=== PATIENT | female | born 1965 | race Caucasian/White ===

== ENCOUNTER → 2017-08-15 07:44 | Outpatient (CLI) | payer OTHER, SELFPAY ==
[2017-08-15 10:23] LABS: Hemoglobin A1c 8.8 % (4.2-6.3)
[2017-08-15 10:26] LABS: AST(SGOT) 19 U/L (15-37); Alanine Aminotransfer ALT/SGPT 33 U/L (13-56); Anion Gap 7 (5-15); BUN 7 mg/dL (7-18); BUN/Creat Ratio 10.2 RATIO (10-20); Calcium,Total 8.4 mg/dL (8.5-10.1); Chloride 103 mmol/L (98-107); Cholesterol 178 mg/dL (200); Creatinine, Serum 0.69 mg/dL (0.55-1.02); EST Glomerular Filtration Rate 94 mL/min (>60); Est Glom Filt Rate - Afr Amer 114 mL/min (>60); Glucose 176 mg/dL (74-106); High Density Lipoprotein 62 mg/dL; Potassium 3.9 mmol/L (3.5-5.1); Sodium Level 138 mmol/L (136-145); Triglycerides 96 mg/dL; Very Low Density Lipoprotein 19 mg/dL (5-40)
[2017-08-15 10:37] LABS: Microalbumin,Random Urine < 5.0 mg/L (NO RANGE EST.)
== END ==
PROVIDERS: Family Provider Family Medicine; PCP Family Medicine; Visit Provider Family Medicine
DX: E11.9 Type 2 diabetes mellitus without complications (principal); E78.5 Hyperlipidemia, unspecified
CPT/HCPCS: 36415; 80048; 80061; 82043; 82570; 83036; 84443; 84450; 84460

== ENCOUNTER → 2018-05-10 17:47 | Outpatient (CLI) | payer OTHER, SELFPAY ==
[2018-05-10 18:35] LABS: Anion Gap 9 (5-15); BUN 4 mg/dL (7-18); BUN/Creat Ratio 7.2 RATIO (10-20); Calcium,Total 8.9 mg/dL (8.5-10.1); Chloride 104 mmol/L (98-107); Creatinine, Serum 0.55 mg/dL (0.55-1.02); EST Glomerular Filtration Rate 122 mL/min (>60); Est Glom Filt Rate - Afr Amer 147 mL/min (>60); Glucose 114 mg/dL (74-106); Potassium 3.8 mmol/L (3.5-5.1); Sodium Level 141 mmol/L (136-145); Thyroid Stim Hormone (TSH) 2.26 uIU/mL (0.358-3.74)
--- OUTSIDE RECORDS SUMMARY | 2018-07-15 08:06 | XMS RPT_ITS ---
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 Mesha Mattson Active [facility] complications / Repository E11.9(ICD-10) 08/15/2017 Active Encounter for NA Active [facility] screening mammogram [facility] for malignant Repository neoplasm of breast / Z12.31(ICD-10) PROCEDURES PROCEDURES No Procedure Records FoundRESULTS RESULTS BASIC METABOLIC Collected: 05/10/2018 Status: F Source: [place] PROFILE (BMP) 5:13 PM [facility] REPOSITORY TYPE CODE TESTS RESULT OUT OF RANGE REFERENCE UNITS LAB L501.0100 74-106 mg/dL High GLU 114 Result Comment: Fasting Glucose result from 100 to 125 mg/dL suggests IMPAIRED HOMEOSTASIS per A.D.A. criteria. Please note revised GLUCOSE reference range effective 2017. LAB L501.1000 7-18 mg/dL Low BUN 4 LAB L501.1100 0.55-1.02 mg/dL Normal CREAT,SERUM 0.55 Result Comment: The validity of the calculated GFR AND GFRAA in patients over 70 years has not been determined. Clinical correlation is essential. LAB L501.1110 >60 mL/min Normal EST GFR 122 Result Comment: Non- GFR Calc LAB L501.1115 >60 mL/min Normal EST GFR - AA 147 Result Comment: GFR Calc LAB L501.1300 10-20 RATIO Low BUN/CRE 7.2 LAB L501.2200 8.5-10.1 mg/dL Normal CA 8.9 LAB L501.5300 136-145 mmol/L Normal NA 141 LAB L501.5600 3.5-5.1 mmol/L Normal K 3.8 LAB L501.5900 98-107 mmol/L Normal CL 104 LAB L501.6100 21.0-32.0 mmol/L Normal CO2 28.0 LAB L501.6200 5-15 Normal GAP 9 Performed By: #### L500.2500, L501.9520 #### [facility] [address] [place], [place], [address] THYROID STIM HORMONE Collected: 05/10/2018 Status: F Source: JEWETT (TSH) 5:13 PM [facility] REPOSITORY TYPE CODE TESTS RESULT OUT OF RANGE REFERENCE UNITS LAB L501.9520 0.358-3.74 uIU/mL Normal TSH 2.26 Performed By: #### L500.2500, L501.9520 #### [facility] [address] [place], [place], [address] PROGRESS Observed: 09/06/2017 Status: COMPLETED Source: HIBBS 3:04 PM [facility] REPOSITORY HNO ID: [id number] Author: Jania Hartman Psr Service: (none) Author Type: (none) Type: Progress Notes Filed: 09/06/2017 3:05 PM Note Text: pap logged, letter sent. Jania Hartman Psr SURGICAL PATHOLOGY Observed: 08/29/2017 Status: F Source: HIBBS 4:45 PM [facility] REPOSITORY Specimen originated from [facility] Specimen #: [id number] Submitting Physician: PATRICIA HODGES FINAL DIAGNOSIS Cervix, polyp, biopsy - Mainly mucus and inflammatory cells with very limited benign endocervical epithelium. GZ/liza/09/03/17 Asha Del Toro M.D. (Electronic Signature) SPECIMEN SUBMITTED A: CERVIX POLYP CLINICAL DATA None provided. GROSS DESCRIPTION A. Received in formalin are multiple brown, soft feathery segments of tissue admixed with gelatinous material aggregating to 1.2 x 0.9 x 0.6 cm. Totally submitted in one cassette. Gross examination performed at [facility], [address] [place] [address] 08/31/2017 12:16:55 AM Date of Report: 09/03/2017 Date of Procedure: 08/29/2017 Date of Receipt: 08/30/2017 Submitted by: PATRICIA HODGES Location: [facility] Diagnostic interpretation performed at [facility], [address] [place] [address]. CYTOLOGY Observed: 08/29/2017 Status: C Source: HIBBS 3:50 PM [facility] REPOSITORY ADDITIONAL PROCEDURES PRESENT Specimen originated from [facility] Specimen #: [id number] Submitting Physician: PATRICIA HODGES SPECIMEN SUBMITTED A: CERVICAL, SCREENING, FLUID FINAL DIAGNOSIS A. CERVICAL, SCREENING, FLUID Satisfactory for interpretation. Negative for intraepithelial lesion or malignancy. Acute inflammation. This specimen has been analyzed by the ThinPrep Imaging System, an automated imaging and review system, which assists the laboratory in evaluating cells on ThinPrep Pap tests. Following automated imaging, selected argueta from every slide are reviewed by a water main pipe layer. ALISON Crews(ASCP) (Electronic Signature) ADDITIONAL PROCEDURE(S) HUMAN PAPILLOMA VIRUS Date Ordered: 08/31/2017 Date Reported: 09/03/2017 Procedure Results and Interpretation Negative for HPV DNA high risk type 16 by PCR. Negative for HPV DNA high risk type 18 by PCR. Negative for HPV DNA high risk types: 31,33,35,39,45,51,52,56,58,59,66,68 by PCR. This test was developed and its performance characteristics determined by [facility]'s [facility] [place] ([facility] It has not been cleared or approved by the FDA. -[facility] is regulated under CLIA as qualified to perform high-complexity testing. This test is used for clinical purposes. It should not be regarded as investigational or for research. 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 The Pap Smear is a screening test for cervical cancer. False negative results occur with all screening tests, emphasizing the need for rescreening at recommended intervals, and clinical correlation. PROGRESS Observed: 08/29/2017 Status: COMPLETED Source: HIBBS 3:45 PM [facility] REPOSITORY HNO ID: [id number] Author: Patricia Hodges (Business Administration Professor) Service: (none) Author Type: Nurse Practitioner Type: Progress Notes Filed: 09/03/2017 9:58 AM Note Text: Barbra Henao is a 51 year old who presents for her annual gynecologic exam without complaints. Postmenopausal: no menses Feb 2018 HRT use: No. Last Pap: 2011 normal HPV: 2011 negative History of abnormal pap: No Last mammogram: 2017 normal History of abnormal mammogram: No Sexually active: Yes Hot flashes: Yes Night sweats: No Vaginal dryness: No Obstetric History T1 L1 SAB1 TAB0 Ectopic0 Multiple0 Live Births0 Comment: Pt also has 3 adopted children. PAST MEDICAL HISTORY Diagnosis Date - Other and unspecified hyperlipidemia - Type II or unspecified type diabetes mellitus with other specified manifestations, not stated as uncontrolled 05/28 - Unspecified essential hypertension - Varicose veins of other sites Left leg PAST SURGICAL HISTORY Procedure Laterality Date - BX OF BREAST; INCISIONAL 04/01/04 Bx of breast, incisional - DELIVERY ONLY 08/08/92;09/12/94 , low cervical - LAPAROSCOPIC CHOLEYCYSTECTOMY 11/05/12 hydrops FAMILY HISTORY Problem Relation Age of Onset - Diabetes Father - Hypertension Father - Breast Cancer Maternal Grandmother SOCIAL HISTORY Social History Substance Use Topics - Smoking status: Never Smoker - Smokeless tobacco: Never Used - Alcohol use No REVIEW OF SYSTEMS Abdomen: No abdominal pain, nausea, vomiting, diarrhea, or constipation. No bloating, early satiety, indigestion, or increased flatulence. Bladder: No dysuria, gross hematuria, urinary frequency, urinary urgency. Some occ incontinence Breast: No breast lumps, nipple d/c, overlying skin changes, redness or skin retraction Allergies and current medication updated:Yes EXAM: Ht 5' 1.811 (1.57m) Wt 194 lb (88.0kg) LMP 02/25/2017 BMI 35.70 kg/(m2). GENERAL: pleasant, female in no apparent distress HEENT: Normocephalic, atraumatic, mucus membranes moist and no lesions NECK: Supple, full range of motion, no adenopathy and thyroid normal DERMATOLOGY: Normal, without lesions, non-icteric and non-hirsute BREAST: soft, non-tender, symmetric, no dominant mass, normal nipple-areolar complex, no lymphadenopathy and no nipple discharge CHEST: Normal inspiratory effort ABDOMEN: soft, non-tender and no masses PELVIC: external genitalia normal, normal Bartholin's glands, urethra, [place]'s glands, no vulvar lesions, no cervical lesions, good vaginal support, physiologic discharge present, normal appearing perineal body and perianal region, cervical lesion -polyp BIMANUAL: uterus normal size, shape and consistency, no adnexal masses, non-tender and no cervical motion tenderness RECTOVAGINAL: deferred. NEURO: alert and oriented x3,exam grossly non-focal EXTREMITIES: normal ASSESSMENT/PLAN: 1) Health maintenance: Pap done with HPV. Mammogram up to date Nutrition, exercise and routine health maintenance exams reviewed. Calcium/Vitamin D supplementation information provided. 2) Follow up one year or sooner as needed Patricia Hodges) Pt ID verified with patient: Yes Procedure verified with patient: Yes Audible time-out documented: Yes. Time: 1610 Physician: Patricia Hodges APRN.CNP A polypectomy is indicated for a/an cervical polyp. The alternatives, risks, benefits, and potential complications have been reviewed with the patient. The patient states an understanding of RBAP and consents to proceed with the procedure. The patient wishes to proceed with the procedure. Cervical polyp grasp with ring forceps, with a twisting motion the polyp was removed for cervix. The procedure was completed without complication and the patient tolerated the procedure well. Satisfactory hemostasis was noted at the conclusion of the procedure with pressure. The specimen was properly labeled and routed to Pathology. Plan: await laboratory results Patricia Hodges APRN.CNP CNOV Observed: 08/29/2017 Status: COMPLETED Source: HIBBS 3:30 PM [facility] REPOSITORY Office Visit (WOOB) BARBRA HENAO ([id number]) 1965 F Date Time Provider Department 08/29/17 3:30 PM PATRICIA HODGES (ANNEMARIE) WOOB During your visit today, we recorded the following information about you: Blood pressure Weight Height Last Period 144/84 88 kg 1.57 m 02/25/17 Patricia Hogdes APRN.CNP 09/03/2017 9:58 AM Addendum Barbra Henao is a 51 year old who presents for her annual gynecologic exam without complaints. Postmenopausal: no menses Feb 2018 HRT use: No. Last Pap: 2011 normal HPV: 2011 negative History of abnormal pap: No Last mammogram: 2017 normal History of abnormal mammogram: No Sexually active: Yes Hot flashes: Yes Night sweats: No Vaginal dryness: No Obstetric History T1 L1 SAB1 TAB0 Ectopic0 Multiple0 Live Births0 Comment: Pt also has 3 adopted children. PAST MEDICAL HISTORY Diagnosis Date - Other and unspecified hyperlipidemia - Type II or unspecified type diabetes mellitus with other specified manifestations, not stated as uncontrolled 05/28 - Unspecified essential hypertension - Varicose veins of other sites Left leg PAST SURGICAL HISTORY Procedure Laterality Date - BX OF BREAST; INCISIONAL 04/01/04 Bx of breast, incisional - DELIVERY ONLY 08/08/92;09/12/94 , low cervical - LAPAROSCOPIC CHOLEYCYSTECTOMY 11/05/12 hydrops FAMILY HISTORY Problem Relation Age of Onset - Diabetes Father - Hypertension Father - Breast Cancer Maternal Grandmother SOCIAL HISTORY Social History Substance Use Topics - Smoking status: Never Smoker - Smokeless tobacco: Never Used - Alcohol use No REVIEW OF SYSTEMS Abdomen: No abdominal pain, nausea, vomiting, diarrhea, or constipation. No bloating, early satiety, indigestion, or increased flatulence. Bladder: No dysuria, gross hematuria, urinary frequency, urinary urgency. Some occ incontinence Breast: No breast lumps, nipple d/c, overlying skin changes, redness or skin retraction Allergies and current medication updated:Yes EXAM: Ht 5' 1.811 (1.57m) Wt 194 lb (88.0kg) LMP 02/25/2017 BMI 35.70 kg/(m2). GENERAL: pleasant, female in no apparent distress HEENT: Normocephalic, atraumatic, mucus membranes moist and no lesions NECK: Supple, full range of motion, no adenopathy and thyroid normal DERMATOLOGY: Normal, without lesions, non-icteric and non-hirsute BREAST: soft, non-tender, symmetric, no dominant mass, normal nipple-areolar complex, no lymphadenopathy and no nipple discharge CHEST: Normal inspiratory effort ABDOMEN: soft, non-tender and no masses PELVIC: external genitalia normal, normal Bartholin's glands, urethra, [place]'s glands, no vulvar lesions, no cervical lesions, good vaginal support, physiologic discharge present, normal appearing perineal body and perianal region, cervical lesion -polyp BIMANUAL: uterus normal size, shape and consistency, no adnexal masses, non-tender and no cervical motion tenderness RECTOVAGINAL: deferred. NEURO: alert and oriented x3,exam grossly non-focal EXTREMITIES: normal ASSESSMENT/PLAN: 1) Health maintenance: Pap done with HPV. Mammogram up to date Nutrition, exercise and routine health maintenance exams reviewed. Calcium/Vitamin D supplementation information provided. 2) Follow up one year or sooner as needed Patricia Hodges) Pt ID verified with patient: Yes Procedure verified with patient: Yes Audible time-out documented: Yes. Time: 1610 Physician: Patricia Hodges APRN.CNP A polypectomy is indicated for a/an cervical polyp. The alternatives, risks, benefits, and potential complications have been reviewed with the patient. The patient states an understanding of RBAP and consents to proceed with the procedure. The patient wishes to proceed with the procedure. Cervical polyp grasp with ring forceps, with a twisting motion the polyp was removed for cervix. The procedure was completed without complication and the patient tolerated the procedure well. Satisfactory hemostasis was noted at the conclusion of the procedure with pressure. The specimen was properly labeled and routed to Pathology. Plan: await laboratory results JESUS Franks 09/06/2017 3:05 PM Signed pap logged, letter sent. Jania Hartman Psr Referring Provider: SELF [200] Allergies As of Date: 08/29/2017 Noted Allergy Reaction PENICILLINS 03/30/2005 2 - Rash Date Reviewed: 08/29/2017 Reviewed by: Patricia Hodges - Fully Assessed Reason for Visit: Yearly Exam [187] Primary Visit Diagnosis:Encounter for gynecological examination (general) (routine) without abnormal findings [Z01.419] Other Visit Diagnoses:Encounter for screening for human papillomavirus (HPV) [Z11.51] Pap smear for cervical cancer screening [Z12.4] Encounter for screening mammogram for breast cancer [Z12.31] Cervical polyp [N84.1] Order(s):PAP FLUID CERVICAL SCREENING [[id number]] Order #: [id number]. #:[id number] ZAHRA SCREENING [[id number]] Order #: [id number] FUTURE SURGICAL PATHOLOGY [[id number]] Order #: [id number]. #:[id number] HPV W/GENOTYPE [SQHPVHRR] Order #: [id number]. #:[id number] Prescriptions as of 08/29/2017 Sig: METFORMIN 1,000 MG TABLET Take 1,000 mg by mouth twice * SITAGLIPTIN 50 MG TABLET Take 50 mg by mouth once frandy* CYANOCOBALAMIN (VIT B-12) 500* Take by mouth once daily. FISH OIL ORAL Take 1,200 mg by mouth once d* ASCORBIC ACID (VITAMIN C) 1,0* Take 1,000 mg by mouth once d* * VITAMIN B-6 100 MG TABLET Take one(1) tablet daily. Problem List As Of Date 08/29/2017 Noted Resolved DM manif NEC type II [E11.69] More... Essential hypertension [I10] Other and unspecified hyperlipidemia [E78.5] Cholecystitis [K81.9] INVALID FOR*05/20/2014 Acute hemorrhagic cholecystitis [K81.0] INVALID FOR*05/20/2014 Cholelithiasis [K80.20] INVALID FOR*05/20/2014 Disposition: Return in 1 year (on 08/29/2018) for Annual Exam. Follow-up and Disposition History Recorded Letter Text Patricia Hodges CNP [facility] [address] [place], [place] [address] Barbra Cadetugh [address] [facility] [address] 09/06/2017 [facility]: [id number] Dear Barbra, We are pleased to inform you that your recent Pap Test was within normal limits. Because Pap tests are so effective in the early detection of cervical cancer, you are encouraged to continue having the test at regular intervals. You will be due for a 1 year Gynecological Exam after this date 08/29/2018. If you have any questions regarding the above information, do not hesitate to call our office at between the hours of 8:00 a.m. and 5:00 p.m. Sincerely, Patricia Hodges CNP Encounter Status:Closed by PATRICIA HODGES on 08/29/17 HPV W/GENOTYPE Collected: 08/29/2017 Status: F Source: HIBBS 5:18 AM [facility] REPOSITORY TYPE CODE TESTS RESULT OUT OF REFERENCE UNITS RANGE LAB HPVT16 HPV HighRisk Negative for Type 16 HPV DNA high risk type 16 by PCR. LAB HPVT18 HPV HighRisk Negative for Type 18 HPV DNA high risk type 18 by PCR. LAB HPVHRO HPV HighRisk Negative for Other HPV DNA high risk types: 31,33,35,39,45 ,51,52,56,58,5 9,66,68 by PCR. Result Comment: This test was developed and its performance characteristics determined by [facility]'s [facility] Pathology and Laboratory Medicine [place] ([facility]). It has not been cleared or approved by the FDA. [facility] is regulated under CLIA as qualified to perform high-complexity testing. This test is used for clinical purposes. It should not be regarded as inv estigational or for research. Performed By: #### HPVHRR #### [facility] [address] [place], [place] [address] CNCO Observed: 08/15/2017 Status: COMPLETED Source: HIBBS 12:15 PM [facility] REPOSITORY HNO ID: [id number] Author: Mammography Coordinator Service: (none) Author Type: Physician Type: Letter Filed: 08/16/2017 11:31 PM Note Text: August 15, 2017 PID: [id number] Barbra Henao [address] [place] [address] Dear Ms. [place], We are pleased to inform you that the results of your recent breast imaging exam on 08/15/2017 are normal. Early detection of cancer is very important. We also understand recommendations regarding breast cancer screening are controversial. Please discuss with your primary care provider which strategy is best for you and whether a mammogram is right for you. Your imaging studies and report will be kept on file at [facility] as part of your permanent medical record and are available for your continuing care. Thank you for allowing us to help in meeting your health care needs. Sincerely, Dr. Hirsch Interpreting Radiologist [facility] (Normal over 40) HEMOGLOBIN A1C Collected: 08/15/2017 Status: F Source: JEWETT 8:08 AM [facility] REPOSITORY TYPE CODE TESTS RESULT OUT OF RANGE REFERENCE UNITS LAB L501.9985 4.2-6.3 % High HGB A1C 8.8 Performed By: #### L501.9985 #### [facility] [address] [place], [address] BASIC METABOLIC Collected: 08/15/2017 Status: F Source: JEWETT PROFILE (BMP) 8:08 AM [facility] REPOSITORY TYPE CODE TESTS RESULT OUT OF RANGE REFERENCE UNITS LAB L501.0100 74-106 mg/dL High GLU 176 Result Comment: Fasting Glucose result greater than or equal to 126 mg/dL suggests DIABETES MELLITUS per A.D.A. criteria. Please note revised GLUCOSE reference range effective 2017. LAB L501.1000 7-18 mg/dL Normal BUN 7 LAB L501.1100 0.55-1.02 mg/dL Normal CREAT,SERUM 0.69 Result Comment: The validity of the calculated GFR AND GFRAA in patients over 70 years has not been determined. Clinical correlation is essential. LAB L501.1110 >60 mL/min Normal EST GFR 94 Result Comment: Non- GFR Calc LAB L501.1115 >60 mL/min Normal EST GFR - AA 114 Result Comment: GFR Calc LAB L501.1300 10-20 RATIO Normal BUN/CRE 10.2 LAB L501.2200 8.5-10.1 mg/dL Low CA 8.4 LAB L501.5300 136-145 mmol/L NA Normal 138 LAB L501.5600 3.5-5.1 mmol/L K Normal 3.9 LAB L501.5900 98-107 mmol/L CL Normal 103 LAB L501.6100 21.0-32.0 mmol/L Normal CO2 28.0 LAB L501.6200 5-15 Normal GAP 7 Performed By: #### L500.2500, L500.4100, L501.4100, L501.4405, L501.9520 #### [facility] [address] [place], [place], [address] LIPID PROFILE Collected: 08/15/2017 Status: F Source: JEWETT 8:08 AM [facility] REPOSITORY TYPE CODE TESTS RESULT OUT OF RANGE REFERENCE UNITS LAB L501.4900 200 mg/dL Normal CHOL 178 Result Comment: <200 mg/dL Desirable 200-240 mg/dL Borderline >240 mg/dL High Risk LAB L501.5000 mg/dL Normal TRIG 96 Result Comment: The drugs N-Acetylcysteine and Metamizole may falsely depress this assay. Serum Triglycerides Reference Interval Normal <150 mg/dL Borderline high 150 - 199 mg/dL High 200 - 499 mg/dL Very High > or = 500 mg/dL LAB L501.6400 mg/dL Normal HDL 62 Result Comment: The drugs N-Acetylcysteine and Metamizole may falsely depress this assay. Reference Range HDL <40 mg/dL Low HDL Cholesterol HDL >or= 60 mg/dL High HDL Cholesterol LAB L501.6500 0-130 mg/dL Normal LDL 97 LAB L501.6600 5-40 mg/dL Normal VLDL 19 Performed By: #### L500.2500, L500.4100, L501.4100, L501.4405, L501.9520 #### [facility] [address] [place], [place], [id number] AST(SGOT) Collected: 08/15/2017 Status: F Source: JEWETT 8:08 AM [facility] REPOSITORY TYPE CODE TESTS RESULT OUT OF RANGE REFERENCE UNITS LAB L501.4100 15-37 U/L Normal AST 19 Performed By: #### L500.2500, L500.4100, L501.4100, L501.4405, L501.9520 #### [facility] [address] [place], [address] ALANINE AMINOTRANSFERAS Collected: 08/15/2017 Status: F Source: ORION (SGPT) 8:08 AM [facility] REPOSITORY TYPE CODE TESTS RESULT OUT OF RANGE REFERENCE UNITS LAB L501.4405 13-56 U/L Normal ALT 33 Performed By: #### L500.2500, L500.4100, L501.4100, L501.4405, L501.9520 #### [facility] [address], [address] THYROID STIM HORMONE Collected: 08/15/2017 Status: F Source: ORION (TSH) 8:08 AM [facility] REPOSITORY TYPE CODE TESTS RESULT OUT OF RANGE REFERENCE UNITS LAB L501.9520 0.358-3.74 uIU/mL Normal TSH 3.30 Performed By: #### L500.2500, L500.4100, L501.4100, L501.4405, L501.9520 #### [facility] [address], [address] MICROALB:CREAT Collected: 08/15/2017 Status: F Source: ORION RATIO,RANDOM UR 8:08 AM [facility] REPOSITORY TYPE CODE TESTS RESULT OUT OF RANGE REFERENCE UNITS LAB L501.1200 NO RANGE EST. mg/dL 33.70 Normal UR CREAT LAB L502.0500 NO RANGE EST. mg/L < 5.0 Normal MICROALBUMI N,UR LAB L502.0600 <30 mg/g CRE mg/g CRE Test Normal not performed MALB:CREAT Performed By: #### L502.0250 #### [facility] [address] [place], [address] ZAHRA SCREENING Observed: 08/15/2017 Status: F Source: HIBBS 7:29 AM [facility] REPOSITORY * * *Final Report* * * DATE OF EXAM: Aug 15 2017 7:29AM [facility] 0581 - [facility] SCREENING / PROCEDURE REASON: Encounter for screening mammogram for malignant neoplasm of breast * * * * Physician Interpretation * * * * RESULT: #[id number] - [facility] SCREENING BILATERAL DIGITAL SCREENING MAMMOGRAM WITH CAD: 08/15/2017 HISTORY: Encounter For Screening Mammogram For Malignant Neoplasm Of Breast /patient reports no breast symptoms /priors available for comparison. RESULT: TECHNIQUE: The study was acquired using full field digital technology and interpreted from soft copy. Current study was also evaluated with a Computer Aided Detection (CAD). Comparison is made to exams dated: 07/20/2016 mammogram, 05/27/2015 mammogram, 02/06/2013 mammogram, and 02/12/2014 mammogram - [facility]. There are scattered fibroglandular elements in both breasts. No significant masses, calcifications, or other findings are seen in either breast. There has been no significant interval change. IMPRESSION: NEGATIVE There is no mammographic evidence of malignancy.A 1 year screening mammogram is recommended. Chloe roper/branden:08/15/2017 12:15:31 Airport Attendant: Salena MORELOS)(Rich), [facility] letter sent: Normal over 40 Mammogram BI-RADS: 1 Negative Catalyst Unit Operator: rBanden Transcribe Date/Time: Aug 15 2017 7:14A Dictated by: CHLOE HIRSCH MD This examination was interpreted and the report reviewed and electronically signed by: CHLOE HIRSCH MD on Aug 15 2017 12:15PM EST [id number] PROGRESS Observed: 08/15/2017 Status: COMPLETED Source: [place] 7:13 AM CLINIC [facility] REPOSITORY [facility] ID: [id number] Author: Marline Munoz Service: (none) Author Type: (none) Type: Progress Notes Filed: 08/15/2017 7:31 AM Note Text: Radiology Service Progress Note PATIENT NAME: Barbra Henao DATE OF SERVICE: August 15, 2017 TIME: 7:13 AM PATIENT IDENTITY VERIFICATION COMPLETED USING TWO (2) METHODS: Patient confirmed name verbally and Date of . PATIENT GENDER DATA: Female. status: : No status: NO. PATIENT RELEVANT IMPLANT DATA REVIEWED: Not Applicable RADIOLOGY DEPARTMENT: [facility] scr mammogram PERIPHERAL IV DATA: Not applicable SIGNED BY: Marline Munoz August 15, 2017 7:13 AM ALLERGIES ALLERGIES DATE TYPE / CODE NAME / CODE REACTION SEVERITY SOURCE 03/30/2005 Drug PENICILLINS RASH [facility] Class/90625 [address] [place] 1003(SNOMED Repository CT) ENCOUNTERS ENCOUNTERS ADMIT/DISCHARGE ACCOUNT ADMITTING ENCOUNTER LOCATION SOURCE NUMBER CLASS 05/10/2018 [id number] [facility] ing:LABSPEC Repository 08/29/2017/02/28/20 [id number] Ambulatory [address] Repository 08/15/2017 [id number] [facility] ing:MTLAB Repository 08/15/2017/08/16/[id number] Repository PAYERS PAYERS ENCOUNTER GUARANTOR PAYER SUBSCRIBER SOURCE 05/10/2018 BARBRA Shoemaker Primary COURTNEY D Orion [id number] S Insurance:AETNAPolicy FIREBAUGHDOB: [facility] Number: [id number], [place] [id number] Repository [address]Juo: (330) Date:[phone] () [id number] [address]PE: 05/10/2018 Secondary NOT GIVENUNK [place] Insurance:SELF PAY [facility] Number: Effective Repository Date:2018-05-10 08/15/2017 Barbra Shoemaker Primary Courtney Sears [id number] S Insurance:AETNAPolicy FirebaughDOB: [facility] Number: [id number], [place] [id number] Repository [address]Muo: ([phone]) Date:[phone] () [id number] [address]TI: 08/15/2017 Secondary NOT GIVENUNK [place] Insurance:SELF PAY [facility] Number: Effective Repository Date:2017-08-15
== END ==
PROVIDERS: Family Provider Family Medicine; PCP Family Medicine; Referring Provider Family Medicine; Visit Provider Family Medicine
DX: E11.9 Type 2 diabetes mellitus without complications (principal)
CPT/HCPCS: 80048; 84443

== ENCOUNTER → 2018-10-08 | Outpatient (CLI) | payer OTHER, SELFPAY ==
--- NOTE | 2018-08-30 04:07 | HP_ITS ---
Intake Vital Signs 08/30/18 Height 5 ft 2 in 08/30/18 Blood Pressure 138/82 H 08/30/18 Blood Pressure Location Lt brachial 08/30/18 Blood Pressure Position Sitting 08/30/18 Respiratory Rate 18 Intake Visit Reasons: Umbilical Hernia Mail Examiner Required: No Is patient in pain?: No Allergies No Known Allergies Allergy (Unverified 08/30/18 13:53) Medications atorvastatin 10 mg tablet 10 mg PO DAILY 08/30/18 [History Confirmed 08/30/18] losartan 25 mg tablet 25 mg PO DAILY 08/30/18 [History Confirmed 08/30/18] metformin 1,000 mg tablet 1,000 mg PO DAILY 08/30/18 [History Confirmed 08/30/18] PFS Medical History Diabetes (Acute) High cholesterol (Acute) Umbilical hernia (Acute) HTN (hypertension) (Chronic) Surgical History S/P section (Acute) S/P laparoscopic cholecystectomy (Acute) S/P vein stripping (Acute) Family History Grandmother Breast cancer Social History Smoking Status: Never smoker alcohol intake: never HPI HPI HPI: JAE HENAO, is a 52 F who presents to the office today for HPI HPI Surgical H&P: Yes HPI: JAE HENAO, is a 52 F who presents to the office today for surgical consultation regarding a ventral incisional hernia. Patient is referred by her primary care physician Dr. Mesha Mattson and a written copy of my surgical consult recommendations will return to her. The patient states that 1992 she had an emergency performed via a vertical infraumbilical incision. She states that since that time she has always had a defect at the umbilical site but more recently it is become much more prominent and intermittently tender. She has not had any nausea or vomiting. No change of bowel habits. She is up-to-date on her colonoscopies. When she strains stands for prolonged period of time she has a dull ache. She has not required recent hospitalizations and she otherwise enjoys good health. She believes that she had a cardiac stress test approximately 5 years ago and it was not remarkable. ROS General General: Yes weight change; no appetite, fatigue, colon cancer, breast cancer or weakness HEENT HEENT: No difficulty swallowing, eye injury, eye surgery, swollen glands or hoarseness Endo Endocrine: Yes diabetes mellitus; no thyroid disease, thyroid cancer, Hair loss, heat intolerance or cold intolerance Skin Skin: No rash or changing moles Breast Breast: No left breast lump, right breast lump, nipple discharge, breast pain, abnormal mammogram, abnormal US or breast enlargement Musc Musculoskeletal: No back problems, arthritis, rheumatoid arthritis, gout or joint pain Cardio Cardiovascular: Yes high blood pressure; no murmur, pacemaker, heart disease, atrial fibrillation, heart attack, heart stent, palpitations, shortness of breat with exertion or chest pain Psych Psychiatric: No depression, anxiety or hearing voices Resp Respiratory: No shortness of breath, No sleep apnea, No cough, No COPD, No asthma, No emphysema, No wheezing Gastro Gastrointestinal: No abdominal pain, No nausea or vomiting, No diarrhea, No constipation, No blood in stool, No acid reflux, No hemorrhoids, No ulcers, No gallbladder problem, No black,tarry stools Alex Hematologic: Yes blood thinners, No blood disorders, No bleeding, No anemia, No blood clots Neuro Neurologic: No system reviewed and no additional complaints, except as docu, No as per HPI, No abnormal walking, No abnormal hearing, No abnormal movements, No abnormal speech, No behavioral changes, No burning sensations, No confusion, No seizure-like activity, No unsteadiness, No dizziness, No localized weakness, No frequent falls, No headache(s), No lack of coordination, No loss of vision, No memory loss, No numbness, No other visual disturbances, No radiating pain, No restless legs, No sensory deficit, No fainting, No tingling, No tremor(s), No weakness, No other Exam Const General: cooperative, healthy appearing, comfortable, no acute distress Nutritional Appearance: overweight Orientation: alert, awake, oriented x3 HENMT Head: normal to inspection Chest Chest palpation & inspection: normal inspection of the chest Breast Palpation: No nipple discharge Resp Effort & Inspection: normal respiratory effort Auscultation: clear to auscultation bilaterally Cardio Rate: regular rate Rhythm: regular rhythm Heart Sounds: no murmurs GI Palpation: soft, no hepatosplenomegaly Other: Significant sized bulging hernia within the subcutaneous tissues emanating from the umbilical site and extending superiorly into the left. There is a infraumbilical midline incision extending all the way up to the umbilicus. The hernia is partially reducible with a irregular fascial defect beneath the umbilicus. Mildly tender to deep palpation. It is difficult to decipher potential weakness of the remainder of the infraumbilical incision. Musc Cervical Spine: normal cervical lordosis Neuro General: alert, awake, oriented x3 Extrem General: no calf tenderness bilaterally Psych Affect: normal affect Assessment & Plan Plan Patient appears to have extension of an incisional hernia superior to the infraumbilical midline incision. This really has created quite a sizable subcutaneous hernia sac. It is difficult to assess the degree of them competency of the remainder of the infraumbilical midline incision. The extensive intra-abdominal adhesions also undetermined. Clearly the patient is symptomatic. I proposed for her a open possible conversion to laparoscopic repair and I have discussed technique benefit risk complications and alternatives. I anticipate a direct incision at the site. Pending the degree of the defect would then convert to laparoscopic approach if more extensive dissection and mesh coverage is required. She has had an opting to ask and have questions answered. We will schedule and proceed at her discretion. I very much appreciate the kind opportunity of assisting with her surgical care. CC: Dr. Mesha Calabrese M.D., F.A.C.S. Coding Level of Care Code Detailed, Low 08/30/18 1607 <Electronically signed by Dilip Calabrese MD> Date Dilip Calabrese MD
--- NOTE | 2018-09-11 16:00 | EKG12_ITS ---
Test Reason : PREOP Blood Pressure : / mmHG Vent. Rate : 075 BPM Atrial Rate : 075 BPM P-R Int : 158 ms QRS Dur : 074 ms QT Int : 410 ms P-R-T Axes : 049 -11 027 degrees QTc Int : 457 ms Normal sinus rhythm Low voltage QRS Borderline ECG When compared with ECG of 25-JUN-2013 09:04, No significant change was found Confirmed by YUMIKO PLATT, TEJA ([id number]), fan mail editor VADIM HIRSCH ([id number]) on 09/18/2018 12:06:16 PM Referred By: Dilip Calabrese Confirmed By:TEJA CALDERON MD
[2018-09-11 17:12] LABS: Anion Gap 5 (5-15); BUN 8 mg/dL (7-18); BUN/Creat Ratio 9.4 RATIO (10-20); Calcium,Total 8.7 mg/dL (8.5-10.1); Chloride 103 mmol/L (98-107); Creatinine, Serum 0.85 mg/dL (0.55-1.02); EST Glomerular Filtration Rate 74 mL/min (>60); Est Glom Filt Rate - Afr Amer 90 mL/min (>60); Glucose 299 mg/dL (74-106); Potassium 4.1 mmol/L (3.5-5.1); Sodium Level 137 mmol/L (136-145)
[2018-09-11 17:18] LABS: Hematocrit 42.2 % (37-47); Hemoglobin 13.7 g/dl (12.0-15.0); Mean Corp Hgb Conc 32.5 g/gl (32-36); Mean Corpuscular Hgb 30.4 pg (27.0-32.0); Mean Corpuscular Volume 93.8 fL (81-99); Mean Platelet Vol. 10.8 fl (6.2-12.0); Platelet Count 240 K/mm3 (150-450); RBC Distribution Width CV 12.6 % (11.6-14.6); RBC Distribution Width SD 42.5 fl (35.1-43.9); White Blood Count 8.3 K/mm3 (4.4-11.0)
[2018-09-11 17:20] LABS: Hemoglobin A1c 10.3 % (4.2-6.3)
[2018-09-11 17:25] LABS: Scan Indicated on CBC? Y/N NO
== END | disposition home or self-care (01) ==
LOC: SDC 11:51 → PAT 15:15
PROVIDERS: Referring Provider Surgery; Visit Provider Surgery
DX: Z01.818 Encounter for other preprocedural examination (principal)
CPT/HCPCS: 36415; 80048; 83036; 85027; 93005

== ENCOUNTER 2019-01-01 12:21 | Observation (INO) | payer OTHER, SELFPAY ==
--- NOTE | 2018-12-26 09:22 | EKG12_ITS ---
Test Reason : PREOP Blood Pressure : / mmHG Vent. Rate : 056 BPM Atrial Rate : 056 BPM P-R Int : 164 ms QRS Dur : 070 ms QT Int : 466 ms P-R-T Axes : 036 017 019 degrees QTc Int : 449 ms Sinus bradycardia Low voltage QRS Borderline ECG Confirmed by FRANCHESKA PLATT, DENG ([id number]), movie editor MICHI HSU ([id number]) on 12/30/2018 2:54:28 PM Referred By: Dilip Calabrese Confirmed By:FIFI PRITCHARD MD
[2018-12-26 10:22] LABS: Hematocrit 40.2 % (37-47); Hemoglobin 12.6 g/dL (12.0-15.0); Mean Corp Hgb Conc 31.3 g/dL (32-36); Mean Corpuscular Volume 95.7 fL (81-99); Mean Platelet Vol. 10.8 fl (6.2-12.0); Platelet Count 279 K/mm3 (150-450); RBC Distribution Width CV 13.5 % (11.6-14.6); RBC Distribution Width SD 47.9 fl (35.1-43.9); White Blood Count 6.5 K/mm3 (4.4-11.0)
[2018-12-26 10:35] LABS: Hemoglobin A1c 6.7 % (4.2-6.3)
[2018-12-26 10:55] LABS: Anion Gap 4 (5-15); BUN 8 mg/dL (7-18); BUN/Creat Ratio 11.6 RATIO (10-20); Calcium,Total 8.6 mg/dL (8.5-10.1); Chloride 105 mmol/L (98-107); Creatinine, Serum 0.69 mg/dL (0.55-1.02); EST Glomerular Filtration Rate 94 mL/min (>60); Est Glom Filt Rate - Afr Amer 113 mL/min (>60); Glucose 111 mg/dL (74-106); Potassium 3.9 mmol/L (3.5-5.1); Sodium Level 140 mmol/L (136-145)
--- NOTE | 2018-12-28 04:16 | HP_ITS ---
Intake Vital Signs 12/30/18 Height 5 ft 2 in 12/30/18 Weight: 190 lb 12/30/18 Body Mass Index (BMI) 34.7 12/30/18 Blood Pressure 136/82 H 12/30/18 Blood Pressure Location Rt brachial 12/30/18 Blood Pressure Position Sitting 12/30/18 Respiratory Rate 18 Intake Visit Reasons: open-lap ventral incisional hernia repair 9-11 Cnc Machine Setter Required: No Is patient in pain?: No Allergies Penicillins Allergy (Verified 12/30/18 15:11) Unknown Medications atorvastatin 10 mg tablet 10 mg PO QHS 08/30/18 [History Confirmed 12/30/18] losartan 25 mg tablet 25 mg PO QHS 08/30/18 [History Confirmed 12/30/18] metformin 1,000 mg tablet 1,000 mg PO QHS 08/30/18 [History Confirmed 12/30/18] Cyanocobalamin (Vitamin B-12) [Vitamin B-12] 1,000 mcg PO DAILY 09/11/18 [History Confirmed 12/30/18] Fish Oil/Dha/Epa [Fish Oil 1,200 mg Fish Oil] 1 ea PO DAILY 09/11/18 [History Confirmed 12/30/18] Pyridoxine HCl [Vitamin B-6] 100 mg PO DAILY 09/11/18 [History Confirmed 12/30/18] Glimepiride [Amaryl] 2 mg PO DAILY 12/25/18 [History Confirmed 12/30/18] PFSH Medical History Diabetes (Acute) High cholesterol (Acute) Umbilical hernia (Acute) HTN (hypertension) (Chronic) Surgical History S/P section (Acute) S/P laparoscopic cholecystectomy (Acute) S/P vein stripping (Acute) Family History Grandmother Breast cancer Social History (Updated 12/30/18 @ 16:16 by Denia Mclaughlin PA-C) Smoking Status: Never smoker alcohol intake: never HPI HPI HPI: JAE HENAO, is a 53 F who presents to the office today for HPI HPI Surgical H&P: Yes HPI: Patient is a 52 y/o female I am following for umbilical hernia. Patient presents for an update history and physical. Patient denies previous complications or side effects with anesthesia. Patient denies previous myocardial infarction, stroke or blood clots. Patient notes her abdominal discomfort is 1 or 2 out of 10. She notes she can easily reduce the hernia. She denies change in bowel habits. She denies nausea, vomiting Patient's previous history per Dr. Calabrese: JAE HENAO, is a 52 F who presents to the office today for surgical consultation regarding a ventral incisional hernia. Patient is referred by her primary care physician Dr. Mesha Mattson and a written copy of my surgical consult recommendations will return to her. The patient states that 1992 she had an emergency performed via a vertical infraumbilical incision. She states that since that time she has always had a defect at the umbilical site but more recently it is become much more prominent and intermittently tender. She has not had any nausea or vomiting. No change of bowel habits. She is up-to-date on her colonoscopies. When she strains stands for prolonged period of time she has a dull ache. She has not required recent hospitalizations and she otherwise enjoys good health. She believes that she had a cardiac stress test approximately 5 years ago and it was not remarkable. ROS General General: Yes weight change; no appetite, fatigue, colon cancer, breast cancer or weakness HEENT HEENT: No difficulty swallowing, eye injury, eye surgery, swollen glands or hoarseness Endo Endocrine: Yes diabetes mellitus; no thyroid disease, thyroid cancer, Hair loss, heat intolerance or cold intolerance Skin Skin: No rash or changing moles Breast Breast: No left breast lump, right breast lump, nipple discharge, breast pain, abnormal mammogram, abnormal US or breast enlargement Musc Musculoskeletal: No back problems, arthritis, rheumatoid arthritis, gout or joint pain Cardio Cardiovascular: Yes high blood pressure; no murmur, pacemaker, heart disease, atrial fibrillation, heart attack, heart stent, palpitations, shortness of breat with exertion or chest pain Psych Psychiatric: No depression, anxiety or hearing voices Resp Respiratory: No shortness of breath, No sleep apnea, No cough, No COPD, No asthma, No emphysema, No wheezing Gastro Gastrointestinal: No abdominal pain, No nausea or vomiting, No diarrhea, No constipation, No blood in stool, No acid reflux, No hemorrhoids, No ulcers, No gallbladder problem, No black,tarry stools Alex Hematologic: Yes blood thinners, No blood disorders, No bleeding, No anemia, No blood clots Neuro Neurologic: No weakness Exam Const General: cooperative, healthy appearing, comfortable, no acute distress HENMT Head: normal to inspection Eyes General: appearance normal, both eyes and all related structures Neck Neck: normal visual inspection Neck mass: No Chest Breast Palpation: No nipple discharge Resp Effort & Inspection: normal respiratory effort Auscultation: clear to auscultation bilaterally Cardio Rate: regular rate Rhythm: regular rhythm Heart Sounds: no murmurs GI Inspection: obesity Palpation: soft, hernia umbilical and ventral Auscultation: normal bowel sounds Skin General: no rashes or lesions noted Neuro General: no focal motor deficits, CN's II-XI intact bilaterally Extrem General: normal to inspection Psych Appearance: grossly normal Affect: normal affect Assessment & Plan Problems 1. Ventral incisional hernia without obstruction or gangrene K43.[address] Calabrese will plan to perform an open possible conversion to laparoscopic ventral incisional hernia repair with mesh. Procedure details, risks and benefits have been reviewed. Patient has had the opportunity to ask and have questions answered. Patient verbally understands and agrees with the plan. Coding Level of Care Code No Charge Diagnoses Ventral incisional hernia without obstruction or gangrene K43.2 Comment Update H&P 12/30/18 7986 <Electronically signed by Denia cuello PA-C> Date _ Denia Mclaughlin PA-C I have re-examined the patient. There are no clinical changes since date of exam.
[2018-12-30 15:11] VITALS: BMI 34.7
[2019-01-01] VITALS (28 sets, daily range): BP systolic 102–147; BP diastolic 58–85; PULSE 53–76; RESP 16; TEMP 36.3–36.9; O2SAT 90–100; BMI 34.6; BMI 34.9; BMI 35.0
--- NOTE | 2019-01-01 | HERN_PTH ---
PATIENT: JAE HENAO LOC: [facility] U#:[id number] AGE/SX: 53/F ROOM: [facility] RE01/01/[address]: Dr. Mulu Bennett MD : 1965 BED: 1 DIS: 01/02/2019 SPEC #: [id number] RECD: 01/01/19 12:20 STATUS: VLADISLAV BERNADINE #: [id number] TATA: 01/01/19 00:[address]: Dilip Calabrese DEPT: SURGICAL PATHOLOGY RECD BY: Anthony Oquendo ENTERED: 01/01/19 12:21 SP TYPE: Hernia OTHR DR: MD Mesha Lobo MD Tissues: HERNIA Procedures: Surgery Specimen Level II HEADER OPERATION: Open hernia, incisional ventral hernia with mesh PRE-OP DIAGNOSIS: Ventral incisional hernia without obstruction or gangrene TISSUE SUBMITTED: Hernia sac MICROSCOPIC DIAGNOSIS Hernia sac: Fragments of fibroadipose and fibroconnective tissue, consistent with hernia sac. YANE:amberly 01/02/19 MICROSCOPIC DESCRIPTION Slides are reviewed. GROSS DESCRIPTION Received in fixative is one container labeled with the patient's name and designated hernia sac. The specimen consists of two irregular fragments of fibroadipose tissue that in aggregate measure 4.5 x 3.5 x 1 cm. No mass lesion is identified. Ladies' Hat Trimmer sections are submitted in one cassette. / YANE:amberly 01/01/19 TC:5 CPT: 83642
--- NOTE | 2019-01-01 06:32 | DCINST_ITS ---
Discharge Diet: Light diet - advance as tolerated - if you have questions about your diet instructions, please talk to you doctor. Discharge Activity: May Not Drive - for 3-5 days or while taking narcotic pain medicine. May shower in (days): 1 Lifting Restrictions: 10 pounds Call your doctor if your incision/area has: Continuous Slow Oozing, Sudden Increased Bleeding, Increased Pain/ Swelling, Increased Redness, Foul Smelling Discharge Call your doctor if you observe: Fever of 101 or Higher Suture Line Care: Avoid Pulling/Pushing, Avoid Pinching/Bending Additional Dressing/Incision Instructions:: Change or remove dressing in 4 days. Leave steri-strips in place for 1 week. Allergies/Adverse Reactions: Allergies Penicillins Allergy (Verified 01/01/19 06:19) Unknown Medications to take at Discharge atorvastatin 10 mg tablet 10 mg PO QHS 08/30/18 losartan 25 mg tablet 25 mg PO QHS 08/30/18 metformin 1,000 mg tablet 1,000 mg PO QHS 08/30/18 Cyanocobalamin (Vitamin B-12) [Vitamin B-12] 1,000 mcg PO DAILY 09/11/18 Fish Oil/Dha/Epa [Fish Oil 1,200 mg Fish Oil] 1 ea PO DAILY 09/11/18 Pyridoxine HCl [Vitamin B-6] 100 mg PO DAILY 09/11/18 Glimepiride [Amaryl] 2 mg PO DAILY 12/25/18 Primary Care Physician: Mesha Mattson MD [Primary Care Provider] - Test Results: Test results from this visit will be discussed in further detail at your follow- up appointment, if applicable. Please Follow Up With: Dilip Calabrese MD - [phone] When: Call to make an appointment to be seen in about 10 days.
[2019-01-01] MEDS: Lactated Ringers 1,000 ML 100 ML IV (06:54)
[2019-01-01 07:15] LABS: Bedside Glucose 145 mg/dL (70-110)
[2019-01-01] MEDS: Bupivacaine 0.25% 30 ML Vial (08:54)
--- NOTE | 2019-01-01 08:56 | PCM.OPRPT ---
Problem List (1) Incisional hernia Status: Acute Qualifiers: Obstruction and gangrene presence: without obstruction or gangrene Qualified Code(s): K43.2 - Incisional hernia without obstruction or gangrene; K43.91 - Incisional hernia, without obstruction or gangrene Report of Operation Date of Procedure: 01/01/19 Pre-Operative Diagnosis: Periumbilical ventral incisional hernia Post-Operative Diagnosis: Same Surgery/Procedure Performed:: Ventral incisional herniorrhaphy with 8 cm ventralex mesh. Reference #[id number]. Lot number [id number]. Expiry date 10/18/2020 Description of Surgical Findings:: Timeout and informed consent was obtained. 53-year-old female was taken out from placement table underwent general endotracheal intubation anesthesia. The abdomen sterilely prepped draped chlorhexidine. Ioban draping was used as well. A infraumbilical transverse incision was created. Sharp dissection carried down through the substance tissue. Skin sites were pre-anesthetized with 0.5% Marcaine. The periumbilical area was sharply dissected free the umbilical skin carefully protected. The hernia sac was encountered there were adhesions of omentum but these could be rapidly lysed. The sac was then sharply excised. Subcutaneous tissue was raised to see the fascial edges. [place]'s were placed on the fascia elevated and there was copious adhesions of omentum to the anterior abdominal wall. These were transected using sharp dissection and electrocautery were indicated. Good circumferential dissection was achieved. The defect measured approximately 4 cm diameter. I placed a 8 cm ventralex. The tails were secured with interrupted 0 Nurolon. The fascia was closed transversely with interrupted 0 Nurolon and I captured a portion of the mesh and so doing to assure good approximation of the mesh to the anterior abdominal wall. The sutures were secured with excellent approximation. There did not appear to be any tension. The fascia was anesthetized with 0.5% Marcaine. Subcutaneous tissues were closed with interrupted 4-0 Monocryl. The skin edges approximate interrupted subcuticular 4-0 Monocryl. Steri-Strips cottonball Telfa OpSite dressings applied. Sponge and instrument and needle counts were reported the surgeon to be correct. Blood loss was minimal. Specimen hernia sac. Drains none. Blood loss minimal. The patient was taken to the recovery area in satisfactory condition without apparent complication. Dilip Calabrese M.D., F.A.C.S. Type of Anesthesia:: General Anesthesiologist: Hope Campos
--- NOTE | 2019-01-01 10:16 | RAD_ITS ---
STUDY: X-RAY CHEST REASON FOR EXAM: Female, 53 years old. Shortness of breath. Recent surgery. TECHNIQUE: Single AP portable view of the chest. COMPARISON: None. FINDINGS: The lungs are clear and expanded. There is no demonstrated pleural abnormality. There is moderate cardiac enlargement. Normal mediastinum and jesus. Normal visualized pulmonary arteries. Normal visualized aortic arch and descending thoracic aorta. There are diffuse degenerative changes of the visualized thoracic spine. Normal visualized ribs, clavicles, and shoulders. There is no demonstrated abnormality of the visualized soft tissue structures of the upper abdomen. RAD/Chest 1 View (Portable) IMPRESSION: Cardiomegaly. Electronically Signed: Julio Cesar Pack, at 11:01 EDT , Service support ,
[2019-01-01] MEDS: Ipratropium/Albuterol Sulfate 3 ML AMPUL.NEB INHALATION (10:43)
--- NOTE | 2019-01-01 11:09 | SUR.PHASEI ---
PT GIVEN IS AND VERBALLY GIVEN INSTRUCTIONS ON HOW TO DO. PT COMPLETED BEDSIDE
[2019-01-01 11:36] LABS: Base Excess 2 mmol/L (-2 to +2); Bicarbonate 27.7 mmol/L (22-26); Blood Gas Specimen Type ART; O2 Delivery Device Room Air; PO2 59 mmHG (75-100); SITE L Brachial; SO2 88 % (95-99); Time Given 1131; Total Carbon Dioxide 29 mmol/L; pH 7.33 (7.35-7.45)
--- NOTE | 2019-01-01 11:41 | SUR.PHASEI ---
ABG DONE BEDSIDE. COMPLETED PER RESP, ANESTHESIA REVIEWING RESULTS
--- NOTE | 2019-01-01 12:24 | HP.PCM_ITS ---
History of Present Illness Date of Admission: 01/01/19 Chief Complaint: hypoxia The patient is a 53 year old F with a past medical history as listed in which includes obstructive sleep apnea for which is not been compliant with his CPAP machine. Patient was admitted via PACU on 01/01/2019. Patient had surgery on 01/01/2019 for an abdominal ventral hernia by general surgery. After the surgery, she was noted to desaturate to the 70s whilst she was coming out of anesthesia. She therefore required up to 4 L of oxygen to maintain a saturation. Hospitalist service was therefore consulted to admit patient in account of postop hypoxia. Patient was seen in PACU. She was on 4 L of oxygen and had no complaints. She denied any fever, any cough or shortness of breath or any lightheadedness or dizziness. Pain was well controlled. Patient admitted to having sleep apnea and said she does not member the last time she used her CPAP machine because her had told her she did not need it. 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 Review of systems is otherwise negative. ABGs done in the PACU showed pH of 7.32 with PCO2 of 53 and PO2 of 59. She has been admitted to be managed for acute hypoxic and hypercapnic respiratory failure likely due to untreated sleep apnea. [] Past Medical History Medical History: Medical History (Last Reviewed 12/30/18 @ 15:10 by Yoselin Ocampo) Diabetes E11.9 High cholesterol E78.00 Umbilical hernia K42.9 HTN (hypertension) I10 Allergies Penicillins Allergy (Verified 01/01/19 06:19) Unknown Home Medications: Ambulatory Orders Medication Instructions Recorded atorvastatin 10 mg tablet 10 mg PO QHS 08/30/18 losartan 25 mg tablet 25 mg PO QHS 08/30/18 metformin 1,000 mg tablet 1,000 mg PO QHS 08/30/18 Cyanocobalamin (Vitamin B-12) 1,000 mcg PO DAILY 09/11/18 [Vitamin B-12] Fish Oil/Dha/Epa [Fish Oil 1,200 1 ea PO DAILY 09/11/18 mg Fish Oil] Pyridoxine HCl [Vitamin B6] 100 mg PO DAILY 09/11/18 Glimepiride [Amaryl] 2 mg PO DAILY 12/25/18 Hydrocodone Bitart/Apap 5-325 1 tab PO Q6H PRN PRN 2 Days #6 tab 01/01/19 [[place] 5MG-325MG] Surgical History: Surgical History (Last Reviewed 12/30/18 @ 15:10 by Yoselin Ocampo) S/P section Z98.891 S/P laparoscopic cholecystectomy Z90.49 S/P vein stripping Z98.890 Lives: Spouse/ Significant Other Smoking Status: Never smoker Tobacco Use: Non-smoker Alcohol: None Drugs: None - *Family History Maternal Family History: Family History (Last Reviewed 12/30/18 @ 15:10 by Yoselin Ocampo) Grandmother Breast cancer Review of Systems Constitutional: Denies: Chills, Fever, Malaise, Weakness, Weight Change HEENT: Denies: Head Aches, Sinus Congestion, Sinus Drainage Cardiovascular: Denies: Chest Pain, Palpitations, Paroxysmal Noc. Dyspnea, Syncope Respiratory: Denies: Cough, Shortness of Breath, Shortness of breath at rest, Sputum production Gastrointestinal: Denies: Abdominal Pain, Nausea, Vomiting Genitourinary: Denies: Dysuria Musculoskeletal: Denies: Joint Pain, Joint Tenderness Skin: Denies: Rash, Wounds Neurological: Denies: Numbness, Tingling, Focal weakness Psychiatric: Denies: Anxiety, Depression, Homicidal Ideations, Suicidal Ideations Hematologic/ Lymphatic: Denies: Easy Bruising, Easy Bleeding VTE Information - Inpt Only VTE Present on Admission: No VTE Pharm Prophylaxis ordered?: Yes Patient Problems: Active and Suspected Problems (Last Reviewed 12/30/18 @ 15:10 by Yoselin Ocampo) Incisional hernia (Acute) - Physical Exam General: Alert, Oriented x3, Cooperative, No apparent distress HEENT: Atraumatic, PERRLA, EOMI, Normocephalic Oral: Moist Mucosa Neck: Supple, No JVD, Negative Carotid Bruits Lungs: Clear to auscultation, Normal air movement, No rhonchi, No wheeze, No rales, - - on 4L of oxygen Cardiovascular: Regular rate, Regular Rhythm, Normal S1, Normal S2, No murmurs Abdomen: Bowel Sounds Present, Soft, Non-Distended, No Hepato-splenomegaly, Obese, - - abdominal binder in place Extremities: No clubbing, No cyanosis, No edema, Capillary Refill Less than 3 Seconds Skin: No rashes, No breakdown Musculoskeletal: No Tenderness to Palpation of Joints or Extremities Neurological: Cranial nerves II-XII grossly intact, Neuro grossly intact, Motor Exam 5/5 strength throughout Psych/Mental Status: Normal Affect, Appropriate, Alert and oriented to time, place, person, mood and affect Vital Signs Temp Pulse Resp BP Pulse Ox 97.3 F L 71 16 117/65 98 01/01/19 09:20 01/01/19 11:45 01/01/19 11:45 01/01/19 11:45 01/01/19 11:45 Oxygen Flow Rate (L/min) 4 Oxygen Delivery Method Nasal Cannula Weight: 189 lb 4 oz Body Mass Index (BMI) 34.6 Laboratory Tests Past 24 Hrs 01/01/19 11:32 Specimen Type ART Sample Site L Brachial pH 7.33 L Bicarbonate Actual 27.7 H POC Total CO2 29 Base Excess 2 O2 Saturation 88 L ABG pCO2 53.0 H ABG pO2 59 L O2 Delivery Device Room Air Blood Gas Notified Whom HOSP Blood Gas Notified Time 1131 POC Glucose 01/01/19 06:29 POC Glucose 145 H Diagnostic Data Chest X-Ray 01/01/19 10:16 IMPRESSION: Cardiomegaly. Electronically Signed: Julio Cesar Pack, at 11:01 EDT , Service support , Assessment/Plan All Active Problems (Last Reviewed 12/30/18 @ 15:10 by Yoselin Ocampo) Incisional hernia (Acute) 53 y/o female admitted post-op o/a of hypoxia 1. Acute hypoxic and hypercapnic respiratory insufficiency due to untreated sleep apnea * admit to pCU with telemetry * sats fell to 70% in OR * ABG showed pH of 7.3, with pCO2 of 53 nad pO2 of 59. * titrate oxygen to maintain sats >90% * admits to not being compliant with her sleep apnea machine * consult pulmonology * will get 2D echo o/a of CXR showing cardiomegaly * CPAP qhs. * 2. Abdominal ventral hernia s/p herniorrhaphy * today is POD 0 * management as per general surgery * 3. Hypertension: on losartan 4. Diabetes mellitus: on glimepiride nad metformin. ISS. Accuchecks ACHS 5. Hyperlipidemia:on atorvastatin 6. Known sleep apnea: noncompliant wiht nocturnal CPAP. Will need follow up with pulmonology on discharge. DVT prophylaxis: Lovenox Code Visit OBSV E&M: 44127 Initial observation care L3
--- NOTE | 2019-01-01 12:33 | SUR.PHASEI ---
1215 INTERNALIST HERE TO SEE PT
[2019-01-01 12:35] LABS: Bedside Glucose 236 mg/dL (70-110)
[2019-01-01] MEDS: Insulin Lispro 100 UNIT/ML INSULN.PEN 6 UNIT SC (12:41)
--- NOTE | 2019-01-01 13:56 | PCM.CONS.PUL ---
Reason for Consult Date of Consultation: 01/01/19 Reason for Consultation: Acute hypoxic respiratory insufficiency History of Present Illness: The patient is a 53-year-old female, with a history as outlined below, who presented to [facility] for an elective ventral hernia repair. The patient's operative course was uncomplicated with minimal blood loss noted. While the patient was successfully extubated following the procedure, she was noted to have become hypoxic while in recovery, requiring supplemental O2 to maintain appropriate saturations. The patient denies any history of pulmonary pathology. She has never been diagnosed with COPD or asthma. She is essentially a lifelong non-smoker. However, she did grow up in a smoking household. She was previously evaluated by Dr. Morse and subsequently diagnosed with obstructive sleep apnea following the completion of a polysomnogram 10+ years ago. She does recall having been told that her sleep apnea was mild in severity overall. She was subsequently started on nocturnal CPAP therapy, which she utilized for short period of time. She later discontinued its use, stating that she felt that it kept her awake throughout the course of the night due to an ill fitting mask and air leak. The patient has been without nocturnal Pap therapy now for approximately 10 years. She does not recall her previous CPAP settings. The patient denies a known history of cardiac disease. A postoperative plain film chest x-ray revealed no acute cardiopulmonary process. Arterial blood gas obtained on room air revealed a pH of 7.3 with a corresponding PCO2 of 53 and PO2 of 59. The patient was subsequently transferred from PACU to the progressive care unit for further management. On my evaluation of the patient, she was maintaining appropriate oxygen saturations in the high 90s on 2 L/min. She was in no form of respiratory distress. She did report being agreeable to further work-up of her sleep apnea. Past Medical History Medical History: Medical History (Last Reviewed 12/30/18 @ 15:10 by Yoselin Ocampo) Diabetes E11.9 High cholesterol E78.00 Umbilical hernia K42.9 HTN (hypertension) I10 Allergies Penicillins Allergy (Verified 01/01/19 06:19) Unknown Home Medications: Ambulatory Orders Medication Instructions Recorded atorvastatin 10 mg tablet 10 mg PO QHS 08/30/18 losartan 25 mg tablet 25 mg PO QHS 08/30/18 metformin 1,000 mg tablet 1,000 mg PO QHS 08/30/18 Cyanocobalamin (Vitamin B-12) 1,000 mcg PO DAILY 09/11/18 [Vitamin B-12] Fish Oil/Dha/Epa [Fish Oil 1,200 1 ea PO DAILY 09/11/18 mg Fish Oil] Pyridoxine HCl [Vitamin B6] 100 mg PO DAILY 09/11/18 Glimepiride [Amaryl] 2 mg PO DAILY 12/25/18 Hydrocodone Bitart/Apap 5-325 1 tab PO Q6H PRN PRN 2 Days #6 tab 01/01/19 [[place] 5MG-325MG] Surgical History: Surgical History (Last Reviewed 12/30/18 @ 15:10 by Yoselin Ocampo) S/P section Z98.891 S/P laparoscopic cholecystectomy Z90.49 S/P vein stripping Z98.890 Smoking Status: Never smoker Tobacco Use: Non-smoker - *Family History Maternal Family History: Family History (Last Reviewed 12/30/18 @ 15:10 by Yoselin Ocampo) Grandmother Breast cancer Review of Systems Constitutional: Denies: Chills, Fever Eyes: Denies: Blurred vision, Double vision HEENT: Denies: Head Aches, Sinus Congestion, Sinus Drainage Cardiovascular: Denies: Chest Pain, Palpitations Respiratory: Denies: Cough, Shortness of Breath Gastrointestinal: Reports: Abdominal Pain Genitourinary: Denies: Dysuria Musculoskeletal: Denies: Joint Pain, Joint Tenderness Skin: Denies: Rash, Wounds Neurological: Denies: Numbness, Tingling, Focal weakness Psychiatric: Denies: Anxiety, Depression, Homicidal Ideations, Suicidal Ideations Hematologic/ Lymphatic: Denies: Easy Bruising, Easy Bleeding Patient Problems: Active and Suspected Problems (Last Reviewed 12/30/18 @ 15:10 by Yoselin Ocampo) Incisional hernia (Acute) Objective: The patient's most recent lab work, culture data and imaging studies have all been personally reviewed. - Physical Exam General: Alert, Oriented x3, Cooperative, No apparent distress HEENT: Atraumatic, PERRLA, Normocephalic Oral: No Gingival or Mucosal Lesions/ Ulcerations Neck: Supple, No Nodes, Trachea Midline Lungs: - - Grossly clear to auscultation bilaterally. No conversational dyspnea or accessory muscle use. Cardiovascular: Regular rate, Regular Rhythm, Normal S1, Normal S2, No murmurs Abdomen: Soft, Tender Extremities: No clubbing, No cyanosis, No edema Skin: Incision Musculoskeletal: No Muscle Wasting Lymphatic: No Cervical, Supraclavicular, or Inguinal Adenopathy Neurological: Cranial nerves II-XII grossly intact, Neuro grossly intact Psych/Mental Status: Normal Affect, Appropriate Vital Signs Temp Pulse Resp BP Pulse Ox 98.5 F 69 16 147/75 H 97 01/01/19 13:51 01/01/19 13:51 01/01/19 13:51 01/01/19 13:51 01/01/19 13:51 Oxygen Flow Rate (L/min) 2 Oxygen Delivery Method Nasal Cannula Weight: 189 lb 4 oz Body Mass Index (BMI) 34.6 Finger Stick Blood Glucose 236 Intake and Output for Last 24 Hours 12/30/18 12/31/18 01/01/19 23:59 23:59 23:59 Intake Total 1000 / 1000 Balance 1000 / 1000 Laboratory Tests Past 24 Hrs 01/01/19 11:32 Specimen Type ART Sample Site L Brachial pH 7.33 L Bicarbonate Actual 27.7 H POC Total CO2 29 Base Excess 2 O2 Saturation 88 L ABG pCO2 53.0 H ABG pO2 59 L O2 Delivery Device Room Air Blood Gas Notified Whom HOSP Blood Gas Notified Time 1131 POC Glucose 01/01/19 01/01/19 12:17 06:29 POC Glucose 236 H 145 H Clinical Impression(s) from Imaging Studies Chest X-Ray 01/01/19 10:16 IMPRESSION: Cardiomegaly. Electronically Signed: Julio Cesar Pcak, at 11:01 EDT , Service support , Assessment/Plan All Active Problems (Last Reviewed 12/30/18 @ 15:10 by Yoselin Ocampo) Incisional hernia (Acute) RECOMMENDATIONS: 1. Wean supplemental oxygen to maintain saturations at or above 90%. 2. Encourage incentive spirometer use and mobilize patient as tolerated. 3. Orders will be placed for empiric nocturnal Pap therapy. 4. The patient can follow-up in the pulmonary medicine clinic within 2 weeks of discharge from the hospital, at which time, we can begin to work the patient up once again for her underlying sleep disordered breathing. IMPRESSIONS: 1. Acute hypoxemic respiratory insufficiency Likely precipitated by general anesthesia in the setting of a patient with known sleep apnea. The patient's oxygen saturations are currently in the high 90s on 2 L/min. I did recommend to the nursing staff that her oxygen be weaned to maintain saturations at or above 90%. The patient was encouraged to utilize her incentive spirometer accordingly. Mobilize patient as tolerated. 2. Known obstructive sleep apnea The patient reports having previously been diagnosed with obstructive sleep apnea by Dr. Morse greater than 10 years ago. She has been noncompliant with the use of nocturnal CPAP therapy for approximately 10 years. She has not been followed up by anyone with regards to her sleep disordered breathing. I would recommend that the patient follow-up in the pulmonary medicine clinic following discharge so that a re-titration polysomnogram can be completed and nocturnal Pap therapy restarted. The patient is in agreement. Orders will be placed for empiric CPAP therapy while she is admitted to the hospital. 3. Ventral hernia status post herniorrhaphy Continue routine postoperative care, including pain control and incentive spirometer utilization. 4. Obesity/hypertension/hyperlipidemia/diabetes mellitus Complicates care, management, recovery and prognosis. Continue home medications as indicated. This note was generated with [employer] dictation software. It may contain incorrect words, spelling, and punctuation that were not noted in checking the note before signing. Code Visit Inpatient E&M: 93010 Init Hosp L2
--- NOTE | 2019-01-01 14:13 | ECHOD_ITS ---
Reason For Study: Dyspnea/SOB Procedure This was a 2D Doppler, Color Flow transthoracic echocardiogram. Technically difficult study, patient could not tolerate probe for apical images, no subcostal images due to recent abdominal surgery. Exam performed portable in patient room. Left Ventricle Normal size and thickness. The estimated ejection fraction is 65 %. Stage 1 diastolic dysfunction. No regional wall motion abnormalities noted. Right Ventricle Normal size and thickness. Normal systolic function. Atria Normal left atrium. Normal right atrium. Normal atrial septum. Mitral Valve The mitral valve is structurally normal. No prolapse or stenosis seen. Tricuspid Valve Normal tricuspid valve. Unable to estimate RV systolic pressure due to insufficient tricuspid regurgitant envelope. Aortic Valve Normal aortic valve. Trisinus/trileaflet aortic valve. Pulmonic Valve The pulmonic valve is not well visualized. Great Vessels Normal aortic root. Normal arch. Normal inferior vena cava. Inferior vena cava collapse with sniff. Pericardium/Pleural No pericardial effusion. MMode/2D Measurements & Calculations LVIDd: 4.2 cm IVSd: 1.1 cm LA dimension: 3.8 cm LVIDs: 2.3 cm LVPWd: 0.91 cm FS: 45.1 % LAV(MOD-sp4): 47.4 ml LA A4 area: 17.9 cm2 RA A4 area: 11.4 cm2 Time Measurements MV dec time: 0.15 sec Doppler Measurements & Calculations MV E max rl: 85.7 cm/sec Lat Peak E' Rl: 9.9 cm/sec Med Peak E' Rl: 9.6 cm/sec MV A max rl: 102.7 cm/sec E/E' lat: 8.7 E/E' med: 9.0 MV E/A: 0.83 MV V2 max: 113.6 cm/sec MV P1/2t max rl: 91.5 cm/sec Ao V2 max: 145.4 cm/sec MV max P.2 mmHg MV P1/2t: 81.2 msec Ao max P.5 mmHg MV V2 mean: 58.2 cm/sec MV dec slope: 330.0 cm/sec2 Ao V2 mean: 90.5 cm/sec MV mean P.6 mmHg MVA(P1/2t): 2.7 cm2 Ao mean P.8 mmHg MV V2 VTI: 26.7 cm Ao V2 VTI: 29.8 cm LV V1 max: 108.0 cm/sec PA V2 max: 68.4 cm/sec LV V1 max P.7 mmHg LV V1 mean P.3 mmHg LV V1 mean: 71.1 cm/sec LV V1 VTI: 26.2 cm Interpretation Summary The estimated ejection fraction is 65 %. Stage 1 diastolic dysfunction. Unable to estimate RV systolic pressure due to insufficient tricuspid regurgitant envelope. There is no comparison study available. The study was technically difficult. Ordering Physician: Mulu Bennett Referring Physician: Dilip Calabrese Performed By: Nestor Watkins RCS
[2019-01-01] MEDS: Acetaminophen 325 MG Tablet 650 MG PO ×2 (16:52→22:43)
[2019-01-01 17:06] LABS: Bedside Glucose 215 mg/dL (70-110)
--- NOTE | 2019-01-01 18:40 | PCM.PN.SRG ---
Patient Problems: Active and Suspected Problems (Last Reviewed 12/30/18 @ 15:10 by Yoselin Ocampo) Incisional hernia (Acute) Subjective: Postop day0 I was notified by Dr. Abe Alfred with the patient is in the recovery room that she had CO2 retention and mild hypoxia. Recommendation was for admission. I very much appreciate the assistance of Drs. Bennett and Christopher - Physical Exam Lungs: Clear to auscultation, Normal air movement Abdomen: Bowel Sounds Present, Soft, Non Tender Vital Signs Temp Pulse Resp BP Pulse Ox 98.5 F 71 16 147/75 H 93 01/01/19 14:15 01/01/19 15:19 01/01/19 14:15 01/01/19 14:15 01/01/19 17:08 Oxygen Flow Rate (L/min) 2 Oxygen Delivery Method Room Air Weight: 190 lb Body Mass Index (BMI) 34.9 Finger Stick Blood Glucose 236 Intake and Output for Last 24 Hours 12/30/18 12/31/18 01/01/19 23:59 23:59 23:59 Intake Total 1106 / 1106 Balance 1106 / 1106 Laboratory Tests Past 24 Hrs 01/01/19 11:32 Specimen Type ART Sample Site L Brachial pH 7.33 L Bicarbonate Actual 27.7 H POC Total CO2 29 Base Excess 2 O2 Saturation 88 L ABG pCO2 53.0 H ABG pO2 59 L O2 Delivery Device Room Air Blood Gas Notified Whom [facility] Blood Gas Notified Time 1131 POC Glucose 01/01/19 01/01/19 01/01/19 17:02 12:17 06:29 POC Glucose 215 H 236 H 145 H Medical Necessity - Tobacco Use Smoking Status: Never smoker Tobacco Use: Non-smoker Assessment/Plan All Active Problems (Last Reviewed 12/30/18 @ 15:10 by Yoselin Ocampo) Incisional hernia (Acute) The patient is clinically very conversant. She appears extraordinarily comfortable only taking acetaminophen. She is up and ambulating and working aggressively with her incentive spirometer. She states that her O2 saturation is been approximately 93. She has an interest in going home. From a postoperative surgical standpoint she appears to be much improved over her reported stay in the PACU. I will contact however my understanding is that Dr. White would like the patient to utilize BiPAP tonight. The patient is aware that current recommendations are that she stay overnight. I very much appreciate the kind assistance of both medicine and pulmonary. I will continue to provide surgical support. Dilip Calabrese M.D., F.A.C.S.
[2019-01-01] MEDS: Losartan Potassium 25 MG Tablet PO (21:46)
[2019-01-01] MEDS: Insulin Lispro 100 UNIT/ML INSULN.PEN SC (21:46)
[2019-01-01] MEDS: Atorvastatin Calcium 10 MG Tablet PO (21:46)
[2019-01-01 22:01] LABS: Bedside Glucose 208 mg/dL (70-110)
[2019-01-02] VITALS (9 sets, daily range): BP systolic 120–146; BP diastolic 63–69; PULSE 55–68; RESP 16–18; TEMP 36.4–36.6; O2SAT 94–100
--- NOTE | 2019-01-02 05:21 | CPS ---
Tried 8 cm match-[id number]-[id number]-[employer] band for cpap, pt said it was too strong so in order for her to be compliant the pressure was decreased to 5 RN aware
--- NOTE | 2019-01-02 06:12 | PN.SURG_ITS ---
Patient Problems: Active and Suspected Problems (Last Reviewed 12/30/18 @ 15:10 by Yoselin Ocampo) Incisional hernia (Acute) Subjective: Pt denies abdominal pain or issues She did not sleep with Bipap - Physical Exam Abdomen: Bowel Sounds Present, Soft, Non Tender Vital Signs Temp Pulse Resp BP Pulse Ox 97.5 F L 64 16 146/69 H 94 01/02/19 06:04 01/02/19 06:04 01/02/19 06:04 01/02/19 06:04 01/02/19 06:04 Oxygen Flow Rate (L/min) 2 Oxygen Delivery Method Room Air Weight: 190 lb Body Mass Index (BMI) 34.9 Finger Stick Blood Glucose 236 Intake and Output for Last 24 Hours 12/31/18 01/01/19 01/02/19 23:59 23:59 23:59 Intake Total 1106 / 3506 2800 / 2800 Output Total 1800 / 1800 Balance 1106 / 3506 1000 / 1000 Laboratory Tests Past 24 Hrs 01/01/19 01/02/19 01/02/19 11:32 06:00 06:00 WBC Pending RBC Pending Hgb Pending Hct Pending MCV Pending MCH Pending MCHC Pending RDW Std Deviation Pending RDW Coeff of Radha Pending Plt Count Pending Neut % (Auto) Pending Absolute Neuts (auto) Pending Specimen Type ART Sample Site L Brachial pH 7.33 L Bicarbonate Actual 27.7 H POC Total CO2 29 Base Excess 2 O2 Saturation 88 L ABG pCO2 53.0 H ABG pO2 59 L O2 Delivery Device Room Air Blood Gas Notified Whom [facility] Blood Gas Notified Time 1131 Sodium Pending Potassium Pending Chloride Pending Carbon Dioxide Pending Anion Gap Pending BUN Pending Creatinine Pending Est GFR (MDRD) Af Amer Pending Est GFR (MDRD) Non-Af Pending BUN/Creatinine Ratio Pending Glucose Pending Calcium Pending POC Glucose 01/01/19 01/01/19 01/01/19 21:37 17:02 12:17 POC Glucose 208 H 215 H 236 H 01/01/19 06:29 POC Glucose 145 H Medical Necessity - Tobacco Use Smoking Status: Never smoker Tobacco Use: Non-smoker Assessment/Plan All Active Problems (Last Reviewed 12/30/18 @ 15:10 by Yoselin Ocampo) Incisional hernia (Acute) Appreciate ongoing medical care Outpt surgical followup is scheduled Will sign off
[2019-01-02 06:37] LABS: Anion Gap 6 (5-15); BUN 10 mg/dL (7-18); BUN/Creat Ratio 14.3 RATIO (10-20); Calcium,Total 8.9 mg/dL (8.5-10.1); Chloride 107 mmol/L (98-107); EST Glomerular Filtration Rate 93 mL/min (>60); Est Glom Filt Rate - Afr Amer 112 mL/min (>60); Estimated Creatinine Clearance 68.52 ml/min; Glucose 110 mg/dL (74-106); Potassium 4.2 mmol/L (3.5-5.1); Sodium Level 142 mmol/L (136-145)
[2019-01-02] MEDS: Acetaminophen 325 MG Tablet 650 MG PO (06:45)
[2019-01-02 06:50] LABS: Absolute Lymphocyte Count 2.02 X10^3/uL (0.83-4.51); Absolute Neutrophil Count 10.3 X10^3/uL (2.0-7.7); Basophil# 0.02 X10^3/uL; Basophil% 0.1 % (0-1); Eosinophil# 0.06 X10^3/uL; Eosinophils% 0.4 % (0-5); Hemoglobin 12.3 g/dL (12.0-15.0); Lymphocyte # 2.02 X10^3/ul (4.0); Lymphocyte % 15.1 % (19-41); Mean Corp Hgb Conc 32.4 g/dL (32-36); Mean Corpuscular Hgb 30.8 pg (27.0-32.0); Mean Platelet Vol. 10.5 fl (6.2-12.0); Monocyte# 0.94 X10^3/uL; NRBC Flagged by Analyzer 0 % (0-5); Neutrophil # 10.26 X10^3/uL (2.7-7.7); Platelet Count 243 K/mm3 (150-450); RBC Distribution Width CV 13.4 % (11.6-14.6); RBC Distribution Width SD 47.2 fl (35.1-43.9); White Blood Count 13.4 K/mm3 (4.4-11.0)
[2019-01-02 06:51] LABS: Bedside Glucose 109 mg/dL (70-110)
--- NOTE | 2019-01-02 08:22 | PN_ITS ---
Patient Problems: Active and Suspected Problems (Last Reviewed 12/30/18 @ 15:10 by Yoselin Ocampo) Incisional hernia (Acute) Subjective: The patient was seen and examined at the bedside this morning. Events from the last 24 hours have been reviewed. The patient is currently afebrile, hemodynamically stable and maintaining appropriate oxygen saturations on room air. CPAP was attempted last evening with a pressure support of 8 cm of water initially. However, the patient did not tolerate that pressure support. Therefore, it was decreased to 5 cm of water. The patient did utilize the Pap therapy for several hours. She did report that it was still uncomfortable, nonetheless. Objective: The patient's most recent lab work, culture data and imaging studies have all been personally reviewed. - Physical Exam General: Alert, Oriented x3, Cooperative, No apparent distress HEENT: Atraumatic, PERRLA, Normocephalic Oral: No Gingival or Mucosal Lesions/ Ulcerations Neck: Supple, No Nodes, Trachea Midline Lungs: Normal air movement, No rhonchi, No wheeze, No rales Cardiovascular: Regular rate, Regular Rhythm, Normal S1, Normal S2 Abdomen: Bowel Sounds Present, Soft, Non Tender Extremities: No clubbing, No cyanosis, No edema Skin: Incision Musculoskeletal: No Tenderness to Palpation of Joints or Extremities, No Muscle Wasting Lymphatic: No Cervical, Supraclavicular, or Inguinal Adenopathy Neurological: Cranial nerves II-XII grossly intact, Neuro grossly intact Psych/Mental Status: Alert and oriented to time, place, person, mood and affect Vital Signs Temp Pulse Resp BP Pulse Ox 97.5 F L 55 L 16 146/69 H 97 01/02/19 06:04 01/02/19 07:25 01/02/19 06:04 01/02/19 06:04 01/02/19 07:35 Oxygen Flow Rate (L/min) 2 Oxygen Delivery Method Room Air Weight: 190 lb Body Mass Index (BMI) 34.9 Finger Stick Blood Glucose 236 Intake and Output for Last 24 Hours 12/31/18 01/01/19 01/02/19 23:59 23:59 23:59 Intake Total 1106 / 3506 2800 / 2800 Output Total 1800 / 1800 Balance 1106 / 3506 1000 / 1000 Laboratory Tests Past 24 Hrs 01/01/19 01/02/19 01/02/19 11:32 06:00 06:00 WBC Cancelled Corrected WBC Cancelled RBC Cancelled Hgb Cancelled Hct Cancelled MCV Cancelled MCH Cancelled MCHC Cancelled RDW Std Deviation Cancelled RDW Coeff of Radha Cancelled Plt Count Cancelled MPV Cancelled Immature Gran % (Auto) Cancelled Neut % (Auto) Cancelled Lymph % (Auto) Cancelled [place] % (Auto) Cancelled Eos % (Auto) Cancelled Baso % (Auto) Cancelled Absolute Neuts (auto) Cancelled Absolute Lymphs (auto) Cancelled Total Counted Cancelled Neutrophils % (Manual) Cancelled Band Neutrophils % Cancelled Lymphocytes % (Manual) Cancelled Monocytes % (Manual) Cancelled Eosinophils % (Manual) Cancelled Basophils % (Manual) Cancelled Metamyelocytes % Cancelled Myelocytes % Cancelled Promyelocytes % Cancelled Blast Cells % Cancelled Plasma Cell % (Manual) Cancelled Other Cells % Cancelled Nucleated RBC % Cancelled Nucleated RBCs/100 WBC Cancelled Differential Comment Cancelled Diff Path Review Cancelled Hypersegmented Neuts Cancelled Atypical Lymphocytes Cancelled Reactive Lymphocytes Cancelled Smudge Cells Cancelled Toxic Granulation Cancelled Toxic Vacuolation Cancelled Dohle Bodies Cancelled Jaqui Rods Cancelled Platelet Estimate Cancelled Plt Morphology Comment Cancelled RBC Morphology Cancelled Polychromasia Cancelled Hypochromasia Cancelled Poikilocytosis Cancelled Basophilic Stippling Cancelled Anisocytosis Cancelled Microcytosis Cancelled Macrocytosis Cancelled Spherocytes Cancelled Sickle Cells Cancelled Target Cells Cancelled Tear Drop Cells Cancelled Ovalocytes Cancelled Stomatocytes Cancelled Vargas-[place] Bodies Cancelled [place] Cells Cancelled Bite Cells Cancelled Crenated Cell Cancelled Acanthocytes (Spur) Cancelled Rouleaux Cancelled Schistocytes Cancelled Specimen Type ART Sample Site L Brachial pH 7.33 L Bicarbonate Actual 27.7 H POC Total CO2 29 Base Excess 2 O2 Saturation 88 L ABG pCO2 53.0 H ABG pO2 59 L O2 Delivery Device Room Air Blood Gas Notified Whom HOSP Blood Gas Notified Time 1131 Sodium 142 Potassium 4.2 Chloride 107 Carbon Dioxide 29.0 Anion Gap 6 BUN 10 Creatinine 0.70 Estim Creat Clear Calc 68.52 Est GFR (MDRD) Af Amer 112 Est GFR (MDRD) Non-Af 93 BUN/Creatinine Ratio 14.3 Glucose 110 H Calcium 8.9 01/02/19 06:42 WBC 13.4 H Corrected WBC RBC 4.00 L Hgb 12.3 Hct 38.0 MCV 95.0 MCH 30.8 MCHC 32.4 RDW Std Deviation 47.2 H RDW Coeff of Radha 13.4 Plt Count 243 MPV 10.5 Immature Gran % (Auto) 0.400 Neut % (Auto) 77.0 H Lymph % (Auto) 15.1 L [place] % (Auto) 7.0 Eos % (Auto) 0.4 Baso % (Auto) 0.1 Absolute Neuts (auto) 10.3 H Absolute Lymphs (auto) 2.02 Total Counted Neutrophils % (Manual) Band Neutrophils % Lymphocytes % (Manual) Monocytes % (Manual) Eosinophils % (Manual) Basophils % (Manual) Metamyelocytes % Myelocytes % Promyelocytes % Blast Cells % Plasma Cell % (Manual) Other Cells % Nucleated RBC % 0 Nucleated RBCs/100 WBC Differential Comment Diff Path Review Hypersegmented Neuts Atypical Lymphocytes Reactive Lymphocytes Smudge Cells Toxic Granulation Toxic Vacuolation Dohle Bodies Jaqui Rods Platelet Estimate Plt Morphology Comment RBC Morphology Polychromasia Hypochromasia Poikilocytosis Basophilic Stippling Anisocytosis Microcytosis Macrocytosis Spherocytes Sickle Cells Target Cells Tear Drop Cells Ovalocytes Stomatocytes Vargas-Rinard Bodies [place] Cells Bite Cells Crenated Cell Acanthocytes (Spur) Rouleaux Schistocytes Specimen Type Sample Site pH Bicarbonate Actual POC Total CO2 Base Excess O2 Saturation ABG pCO2 ABG pO2 O2 Delivery Device Blood Gas Notified Whom Blood Gas Notified Time Sodium Potassium Chloride Carbon Dioxide Anion Gap BUN Creatinine Estim Creat Clear Calc Est GFR (MDRD) Af Amer Est GFR (MDRD) Non-Af BUN/Creatinine Ratio Glucose Calcium POC Glucose 01/02/19 01/01/19 01/01/19 06:43 21:37 17:02 POC Glucose 109 208 H 215 H 01/01/19 12:17 POC Glucose 236 H Medical Necessity - Tobacco Use Smoking Status: Never smoker Tobacco Use: Non-smoker Assessment/Plan All Active Problems (Last Reviewed 12/30/18 @ 15:10 by Yoselin Ocampo) Incisional hernia (Acute) RECOMMENDATIONS: 1. Encourage incentive spirometer use and mobilize patient as tolerated. 2. The patient can follow-up in the pulmonary medicine clinic within 2 weeks of discharge from the hospital, at which time, we can begin to work the patient up once again for her underlying sleep disordered breathing. IMPRESSIONS: 1. Acute hypoxemic respiratory insufficiency Likely precipitated by general anesthesia in the setting of a patient with known sleep apnea. With recovery from general anesthesia and with the initiation of bronchopulmonary hygiene and ambulation, the patient supplemental oxygen requirement was able to be weaned. She is currently maintaining appropriate oxygen saturations on room air. Continue to encourage incentive spirometer use and mobilize patient as tolerated. 2. Known obstructive sleep apnea The patient reports having previously been diagnosed with obstructive sleep apnea by Dr. Morse greater than 10 years ago. She has been noncompliant with the use of nocturnal CPAP therapy for approximately 10 years. She has not been followed up by anyone with regards to her sleep disordered breathing. I would recommend that the patient follow-up in the pulmonary medicine clinic following discharge so that a re-titration polysomnogram can be completed and nocturnal Pap therapy restarted. 3. Ventral hernia status post herniorrhaphy Continue routine postoperative care, including pain control and incentive spirometer utilization. 4. Obesity/hypertension/hyperlipidemia/diabetes mellitus Complicates care, management, recovery and prognosis. Continue home medications as indicated. This note was generated with [employer] dictation software. It may contain incorrect words, spelling, and punctuation that were not noted in checking the note before signing. Code Visit Inpatient E&M: 35516 Subs Hosp L2
--- NOTE | 2019-01-02 10:10 | DCINST_ITS ---
- Discharge Diagnoses Current Active Problems: Current Active and Chronic Problems (Last Reviewed 12/30/18 @ 15:10 by Yoselin Ocampo) Incisional hernia (Acute) You will use the following diet at home:: Calorie/Carbohydrate Controlled (specify 1200, 1400, etc) - 1800 Your food should be the consistency of: Regular Your liquids should be the consistency of: Regular/Thin Discharge Activity: May Not Drive - for 3-5 days or while taking narcotic pain medicine. May shower in (days): 1 Weight Bearing Status: Weight bearing as tolerated Call your doctor if your incision/area has: Continuous Slow Oozing, Sudden Increased Bleeding, Increased Pain/ Swelling, Increased Redness, Foul Smelling Discharge Call your doctor if you observe: Fever of 101 or Higher, Shortness of breath Suture Line Care: Avoid Pulling/Pushing, Avoid Pinching/Bending Additional Dressing/Incision Instructions:: Change or remove dressing in 4 days. Leave steri-strips in place for 1 week. Instructions: What Are Snoring and Sleep Apnea?, Continuous Positive Air Pressure (CPAP) Allergies/Adverse Reactions: Allergies Penicillins Allergy (Verified 01/01/19 06:19) Unknown Medications to take at Discharge atorvastatin 10 mg tablet 10 mg PO QHS 08/30/18 losartan 25 mg tablet 25 mg PO QHS 08/30/18 metformin 1,000 mg tablet 1,000 mg PO QHS 08/30/18 Cyanocobalamin (Vitamin B-12) [Vitamin B-12] 1,000 mcg PO DAILY 09/11/18 Fish Oil/Dha/Epa [Fish Oil 1,200 mg Fish Oil] 1 ea PO DAILY 09/11/18 Pyridoxine HCl [Vitamin B6] 100 mg PO DAILY 09/11/18 Glimepiride [Amaryl] 2 mg PO DAILY 12/25/18 Hydrocodone Bitart/Apap 5-325 [[place] 5MG-325MG] 1 tab PO Q6H PRN PRN 2 Days #6 tab 01/01/19 The following prescriptions were given: Hydrocodone Bitart/Apap 5-325 [[place] 5MG-325MG] 1 tab PO Q6H PRN PRN 2 Days #6 tab PRN Reason: Pain Transmission Status: Received by [id number] Primary Care Physician: Mesha Mattson MD [Primary Care Provider] - Please follow up with your Primary Care Physician in: one week Test Results: Test results from this visit will be discussed in further detail at your follow- up appointment, if applicable. Please Follow Up With: Dilip Calabrese MD - [phone] When: Call to make an appointment to be seen in about 10 days. Please Follow Up With: Dilip Morse MD When: 1-2 weeks; please call his office for an appointment Proposed Discharge Date: 01/02/19
--- NOTE | 2019-01-02 10:15 | PCM.DC.SUM ---
Discharge Date and Diagnosis - Problem List Patient Problems: Active and Suspected Problems (Last Reviewed 12/30/18 @ 15:10 by Yoselin Ocampo) Incisional hernia (Acute) Date of Admission: 01/01/19 Date of Discharge: 01/02/19 - Primary Discharge Diagnosis Active and Suspected Problems (Last Reviewed 12/30/18 @ 15:10 by Yoselin Ocampo) Incisional hernia (Acute) post op hypoxia due to untreated sleep apnea acute hypoxic respiratory insufficiency Hospital Course and Treatment Imaging Results: Diagnostic Data Chest X-Ray 01/01/19 10:16 IMPRESSION: Cardiomegaly. Electronically Signed: Julio Cesar Pittsjonatanchase, at 11:01 EDT , Service support , pulmonology- Dr Davy White Operations: herniorrhaphy Procedures: 2-D Echocardiogram Summary of Care Provided: The patient is a 53 year old F with a past medical history as listed in which includes obstructive sleep apnea for which is not been compliant with his CPAP machine. Patient was admitted via PACU on 01/01/2019. Patient had surgery on 01/01/2019 for an abdominal ventral hernia by general surgery. After the surgery, she was noted to desaturate to the 70s whilst she was coming out of anesthesia. She therefore required up to 4 L of oxygen to maintain a saturation. Hospitalist service was therefore consulted to admit patient in account of postop hypoxia. Patient was seen in PACU. She was on 4 L of oxygen and had no complaints. She denied any fever, any cough or shortness of breath or any lightheadedness or dizziness. Pain was well controlled. Patient admitted to having sleep apnea and said she does not member the last time she used her CPAP machine because her had told her she did not need it. Upon further inquiry, she had not used her CPAP machine in about 10 years. She does not follow-up with the television cameraman. Review of systems is otherwise negative. ABGs done in the PACU showed pH of 7.32 with PCO2 of 53 and PO2 of 59. She has been admitted to be managed for acute hypoxic and hypercapnic respiratory insufficiency likely due to untreated sleep apnea. Pulmonology was consulted and agreed with this assessment. Patient was put on overnight CPAP which she tolerated at 5 cm of mercury. However she said it was uncomfortable. She had a 2D echo which showed EF of 65% with stage I diastolic dysfunction and no regional wall motion abnormalities noted. Unable to estimate RV systolic pressure due to insufficient tricuspid regurgitant envelope. Patient did well overnight and was weaned off of oxygen. She was counseled to follow-up with her television cameraman and primary care doctor. Patient preferred to follow-up with Dr. Morse and was encouraged to make an appointment with them. She was discharged on 01/02/2019. She is to follow-up with her primary care doctor, general surgery and pulmonology. Patient seen and examined prior to discharge. She felt well and had no complaints. REview of systems was otherwise negative. Labs and vitals reviewed. Home meds reviewed and reconciled. o/e: Vital Signs Height 5 ft 1 in Weight: 190 lb 0.016 oz Weight in Pounds 190.0 lbs Pulse Ox 100 Temperature 97.9 F Pulse Rate 68 Respiratory Rate 18 Blood Pressure [BP] 147/75 Blood Pressure 120/68 Blood Pressure Position [BP] Semi-Fowlers Blood Pressure Position Sitting General: Alert, Oriented x3, Cooperative, No apparent distress HEENT: Atraumatic, PERRLA, EOMI, Normocephalic Oral: Moist Mucosa Neck: Supple, No JVD, Negative Carotid Bruits Lungs: Clear to auscultation, Normal air movement, No rhonchi, No wheeze, No rales, on room air. Cardiovascular: Regular rate, Regular Rhythm, Normal S1, Normal S2, No murmurs Abdomen: Bowel Sounds Present, Soft, Non-Distended, No Hepato-splenomegaly, Obese, - - abdominal binder in place Extremities: No clubbing, No cyanosis, No edema, Capillary Refill Less than 3 Seconds Skin: No rashes, No breakdown Musculoskeletal: No Tenderness to Palpation of Joints or Extremities Neurological: Cranial nerves II-XII grossly intact, Neuro grossly intact, Motor Exam 5/5 strength throughout Psych/Mental Status: Normal Affect, Appropriate, Alert and oriented to time, place, person, mood and affect Plan as above. Patient Problems: Active and Suspected Problems (Last Reviewed 12/30/18 @ 15:10 by Yoselin Ocampo) Incisional hernia (Acute) - Physical Exam Vital Signs Temp Pulse Resp BP Pulse Ox 97.9 F 68 18 120/68 100 01/02/19 09:50 01/02/19 09:50 01/02/19 09:50 01/02/19 09:50 01/02/19 09:50 Oxygen Flow Rate (L/min) 2 Oxygen Delivery Method Room Air Weight: 190 lb 0.016 oz Body Mass Index (BMI) 34.9 Finger Stick Blood Glucose 236 Intake and Output for Last 24 Hours 12/31/18 01/01/19 01/02/19 23:59 23:59 23:59 Intake Total 1106 / 3506 2800 / 2800 Output Total 1800 / 1800 Balance 1106 / 3506 1000 / 1000 Laboratory Tests Past 24 Hrs 01/01/19 01/02/19 01/02/19 11:32 06:00 06:00 WBC Cancelled Corrected WBC Cancelled RBC Cancelled Hgb Cancelled Hct Cancelled MCV Cancelled MCH Cancelled MCHC Cancelled RDW Std Deviation Cancelled RDW Coeff of Radha Cancelled Plt Count Cancelled MPV Cancelled Immature Gran % (Auto) Cancelled Neut % (Auto) Cancelled Lymph % (Auto) Cancelled [place] % (Auto) Cancelled Eos % (Auto) Cancelled Baso % (Auto) Cancelled Absolute Neuts (auto) Cancelled Absolute Lymphs (auto) Cancelled Total Counted Cancelled Neutrophils % (Manual) Cancelled Band Neutrophils % Cancelled Lymphocytes % (Manual) Cancelled Monocytes % (Manual) Cancelled Eosinophils % (Manual) Cancelled Basophils % (Manual) Cancelled Metamyelocytes % Cancelled Myelocytes % Cancelled Promyelocytes % Cancelled Blast Cells % Cancelled Plasma Cell % (Manual) Cancelled Other Cells % Cancelled Nucleated RBC % Cancelled Nucleated RBCs/100 WBC Cancelled Differential Comment Cancelled Diff Path Review Cancelled Hypersegmented Neuts Cancelled Atypical Lymphocytes Cancelled Reactive Lymphocytes Cancelled Smudge Cells Cancelled Toxic Granulation Cancelled Toxic Vacuolation Cancelled Dohle Bodies Cancelled Jaqui Rods Cancelled Platelet Estimate Cancelled Plt Morphology Comment Cancelled RBC Morphology Cancelled Polychromasia Cancelled Hypochromasia Cancelled Poikilocytosis Cancelled Basophilic Stippling Cancelled Anisocytosis Cancelled Microcytosis Cancelled Macrocytosis Cancelled Spherocytes Cancelled Sickle Cells Cancelled Target Cells Cancelled Tear Drop Cells Cancelled Ovalocytes Cancelled Stomatocytes Cancelled Varg[place] Bodies Cancelled [place] Cells Cancelled Bite Cells Cancelled Crenated Cell Cancelled Acanthocytes (Spur) Cancelled Rouleaux Cancelled Schistocytes Cancelled Specimen Type ART Sample Site L Brachial pH 7.33 L Bicarbonate Actual 27.7 H POC Total CO2 29 Base Excess 2 O2 Saturation 88 L ABG pCO2 53.0 H ABG pO2 59 L O2 Delivery Device Room Air Blood Gas Notified Whom [facility] Blood Gas Notified Time 1131 Sodium 142 Potassium 4.2 Chloride 107 Carbon Dioxide 29.0 Anion Gap 6 BUN 10 Creatinine 0.70 Estim Creat Clear Calc 68.52 Est GFR (MDRD) Af Amer 112 Est GFR (MDRD) Non-Af 93 BUN/Creatinine Ratio 14.3 Glucose 110 H Calcium 8.9 01/02/19 06:42 WBC 13.4 H Corrected WBC RBC 4.00 L Hgb 12.3 Hct 38.0 MCV 95.0 MCH 30.8 MCHC 32.4 RDW Std Deviation 47.2 H RDW Coeff of Radha 13.4 Plt Count 243 MPV 10.5 Immature Gran % (Auto) 0.400 Neut % (Auto) 77.0 H Lymph % (Auto) 15.1 L [place] % (Auto) 7.0 Eos % (Auto) 0.4 Baso % (Auto) 0.1 Absolute Neuts (auto) 10.3 H Absolute Lymphs (auto) 2.02 Total Counted Neutrophils % (Manual) Band Neutrophils % Lymphocytes % (Manual) Monocytes % (Manual) Eosinophils % (Manual) Basophils % (Manual) Metamyelocytes % Myelocytes % Promyelocytes % Blast Cells % Plasma Cell % (Manual) Other Cells % Nucleated RBC % 0 Nucleated RBCs/100 WBC Differential Comment Diff Path Review Hypersegmented Neuts Atypical Lymphocytes Reactive Lymphocytes Smudge Cells Toxic Granulation Toxic Vacuolation Dohle Bodies Jaqui Rods Platelet Estimate Plt Morphology Comment RBC Morphology Polychromasia Hypochromasia Poikilocytosis Basophilic Stippling Anisocytosis Microcytosis Macrocytosis Spherocytes Sickle Cells Target Cells Tear Drop Cells Ovalocytes Stomatocytes Vargas-[place] Bodies [place] Cells Bite Cells Crenated Cell Acanthocytes (Spur) Rouleaux Schistocytes Specimen Type Sample Site pH Bicarbonate Actual POC Total CO2 Base Excess O2 Saturation ABG pCO2 ABG pO2 O2 Delivery Device Blood Gas Notified Whom Blood Gas Notified Time Sodium Potassium Chloride Carbon Dioxide Anion Gap BUN Creatinine Estim Creat Clear Calc Est GFR (MDRD) Af Amer Est GFR (MDRD) Non-Af BUN/Creatinine Ratio Glucose Calcium POC Glucose 01/02/19 01/01/19 01/01/19 06:43 21:37 17:02 POC Glucose 109 208 H 215 H 01/01/19 12:17 POC Glucose 236 H 2D echo (01/01/19) Interpretation Summary The estimated ejection fraction is 65 %. Stage 1 diastolic dysfunction. Unable to estimate RV systolic pressure due to insufficient tricuspid regurgitant envelope. There is no comparison study available. The study was technically difficult. Discharge Diet: Light diet - advance as tolerated - if you have questions about your diet instructions, please talk to you doctor. Discharge Activity: May Not Drive - for 3-5 days or while taking narcotic pain medicine. May shower in (days): 1 Weight Bearing Status: Weight bearing as tolerated Call your doctor if your incision/area has: Continuous Slow Oozing, Sudden Increased Bleeding, Increased Pain/ Swelling, Increased Redness, Foul Smelling Discharge Call your doctor if you observe: Fever of 101 or Higher, Shortness of breath Suture Line Care: Avoid Pulling/Pushing, Avoid Pinching/Bending Additional Dressing/Incision Instructions:: Change or remove dressing in 4 days. Leave steri-strips in place for 1 week. Home Medications: Medications to take at Discharge atorvastatin 10 mg tablet 10 mg PO QHS 08/30/18 losartan 25 mg tablet 25 mg PO QHS 08/30/18 metformin 1,000 mg tablet 1,000 mg PO QHS 08/30/18 Cyanocobalamin (Vitamin B-12) [Vitamin B-12] 1,000 mcg PO DAILY 09/11/18 Fish Oil/Dha/Epa [Fish Oil 1,200 mg Fish Oil] 1 ea PO DAILY 09/11/18 Pyridoxine HCl [Vitamin B6] 100 mg PO DAILY 09/11/18 Glimepiride [Amaryl] 2 mg PO DAILY 12/25/18 Hydrocodone Bitart/Apap 5-325 [[place] 5MG-325MG] 1 tab PO Q6H PRN PRN 2 Days #6 tab 01/01/19 Following Prescrptions Were Given to Patient: Hydrocodone Bitart/Apap 5-325 [[place] 5MG-325MG] 1 tab PO Q6H PRN PRN 2 Days #6 tab PRN Reason: Pain Transmission Status: Received by [facility] Primary Care Physician: Mesha Mattson MD [Primary Care Provider] - Please follow up with your Primary Care Physician in: one week Please Follow Up With: Dilip Calabrese MD - [phone] When: Call to make an appointment to be seen in about 10 days. Please Follow Up With: Dilip Morse MD When: 1-2 weeks; please call his office for an appointment Patient Instructions: What Are Snoring and Sleep Apnea?, Continuous Positive Air Pressure (CPAP) Disposition: Home Minutes spent on discharge:: 35 Patient Condition:: Stable Medical Necessity - Tobacco Use Smoking Status: Never smoker Tobacco Use: Non-smoker Meaningful Use Info Meaningful Use Diagnoses (Choose all that apply): None applicable Code Visit OBSV E&M: 26360 Observation care discharge
== END 2019-01-02 10:15 | disposition home or self-care (01) ==
LOC: SDC 13:29 → PCU 01-02 07:50
PROVIDERS: Anesthesiology; Admitting Provider Surgery; Family Provider Family Medicine; PCP Family Medicine; Referring Provider Surgery; Visit Provider Student in an Organized Health Care Education/Training Program
PROC: 0WQF4ZZ Repair Abdominal Wall, Percutaneous Endoscopic Approach (ICD-10-PCS; CPT 49560; principal; 2019-01-01 07:40)
DX: K43.2 Incisional hernia without obstruction or gangrene (principal); E11.9 Type 2 diabetes mellitus without complications; I10 Essential (primary) hypertension; G47.33 Obstructive sleep apnea (adult) (pediatric); J96.02 Acute respiratory failure with hypercapnia; J96.01 Acute respiratory failure with hypoxia; E78.5 Hyperlipidemia, unspecified; Z79.84 Long term (current) use of oral hypoglycemic drugs; Z79.899 Other long term (current) drug therapy; Z91.19 Patient's noncompliance with other medical treatment and regimen; E66.9 Obesity, unspecified; Z68.35 Body mass index [BMI] 35.0-35.9, adult; Z71.3 Dietary counseling and surveillance
CPT/HCPCS: 00832; 49560; 49568; 36415; 36600; 71045; 80048; 82803; 82962; 83036; 85025; 85027; 88302; 93005; 93306; 94640; 99218; J7120; Q9957; A4216; C1781; G0378; G0379; J2405; J3490

== ENCOUNTER → 2019-07-09 16:02 | Outpatient (CLI) | payer OTHER, SELFPAY ==
[2019-01-01 14:14] VITALS: BMI 34.9
[2019-07-09 18:27] LABS: AST(SGOT) 22 U/L (15-37); Alanine Aminotransfer ALT/SGPT 37 U/L (13-56); Albumin, Serum 3.3 g/dL (3.2-5.0); Alkaline Phosphatase 117 U/L (45-117); Anion Gap 5 (5-15); BUN 9 mg/dL (7-18); BUN/Creat Ratio 12.8 RATIO (10-20); Bilirubin, Direct 0.12 mg/dL (0.00-0.30); Chloride 107 mmol/L (98-107); Cholesterol 127 mg/dL (200); EST Glomerular Filtration Rate 91 mL/min (>60); Est Glom Filt Rate - Afr Amer 111 mL/min (>60); Globulin 3.9 g/dL (2.2-4.2); Glucose 132 mg/dL (74-106); High Density Lipoprotein 63 mg/dL; Protein, Total 7.2 g/dL (6.4-8.2); Sodium Level 140 mmol/L (136-145); Triglycerides 90 mg/dL; Very Low Density Lipoprotein 18 mg/dL (5-40)
== END ==
PROVIDERS: PCP Family Medicine; Referring Provider Family Medicine; Visit Provider Family Medicine
DX: E11.9 Type 2 diabetes mellitus without complications (principal); E78.5 Hyperlipidemia, unspecified
CPT/HCPCS: 36415; 80048; 80061; 80076

== ENCOUNTER → 2020-06-03 15:33 | Outpatient (CLI) | payer OTHER, SELFPAY ==
[2019-01-01 14:14] VITALS: BMI 34.9
--- NOTE | 2020-06-03 15:39 | BI_ITS ---
MAMMOGRAPHY - BILATERAL SCREENING REASON FOR EXAM: Female, 54 years old. Routine annual screening examination. PERTINENT HISTORY: Grandmother with breast cancer. Remote left breast biopsy. TECHNIQUE: Digital bilateral breast samir (3D mammographic acquisition) in the CC and MLO projections. 2-D mediolateral oblique (MLO) and craniocaudad (CC) views of both breasts were obtained. CAD: Full Field Digital Mammography with Computer Added Detection was performed. COMPARISON: Comparison is made with prior outside examination dated 10/16/2018. FINDINGS: Breast Composition: There are scattered areas of fibroglandular density. There is a 1 cm nodular density in the upper central portion of the left breast. Correlation with ultrasound is recommended. Stable benign-appearing bilateral axillary lymph nodes. No other significant abnormalities are identified. BI/SCRN MAMM (CAD)W/SAMIR BILAT IMPRESSION: 1 cm nodular density in the upper central portion of the left breast as described. Correlation with ultrasound is recommended. ASSESSMENT CATEGORY: BIRADS Category 0: Incomplete. Need additional imaging evaluation. A letter regarding these results will be sent to the patient by the facility within 30 days. Approximately 10% of breast cancers are not detected by mammography. A normal mammogram should not delay biopsy of a clinically suspicious abnormality. [id number] Electronically Signed: Julio Cesar Pack MD at 9:57 EST , Service support ,
== END ==
PROVIDERS: PCP Family Medicine; Referring Provider Nurse Practitioner Family; Visit Provider Nurse Practitioner Family
DX: Z12.31 Encounter for screening mammogram for malignant neoplasm of breast (principal)
CPT/HCPCS: 77063; 77067

== ENCOUNTER → 2020-06-08 12:52 | Outpatient (CLI) | payer OTHER, SELFPAY ==
[2019-01-01 14:14] VITALS: BMI 34.9
--- NOTE | 2020-06-08 12:55 | US_ITS ---
STUDY: ULTRASOUND BREAST - LEFT REASON FOR EXAM: Female, 54 years old. Abnormal screening mammogram. TECHNIQUE: Axial and longitudinal images of the LEFT breast were performed with a high resolution ultrasound transducer. # OF IMAGES: 55 COMPARISON: Comparison is made with prior mammogram dated 06/03/2020. FINDINGS: LEFT Breast: The mammographic abnormality corresponds to a 1 cm x 0.9 cm x 0.6 cm well-defined hypoechoic nodule at the 10 o''clock position of the breast at 3 cm from nipple. A biopsy is recommended for further evaluation. US/Breast Limited Unilateral IMPRESSION: 1 cm x 0.9 cm x 0.6 cm hypoechoic nodule at the 10 o''clock position the breast at 3 cm from the nipple. Biopsy is recommended. ASSESSMENT CATEGORY: BIRADS Category 4: Suspicious - Biopsy Should Be Considered. A letter regarding these results will be sent to the patient by the facility within 30 days. Electronically Signed: Julio Cesar Pack MD at 14:46 EST , Service support ,
== END ==
PROVIDERS: PCP Family Medicine; Referring Provider Nurse Practitioner Family; Visit Provider Nurse Practitioner Family
DX: N63.25 Unspecified lump in the left breast, overlapping quadrants (principal)
CPT/HCPCS: 76642

== ENCOUNTER → 2020-06-14 08:59 | Outpatient (CLI) | payer OTHER, SELFPAY ==
[2019-01-01 14:14] VITALS: BMI 34.9
--- NOTE | 2020-06-14 08:00 | BRBX_PTH ---
PATIENT: JAE HENAO LOC: [facility] U#:[id number] AGE/SX: 59/F ROOM: RE06/14/[address]: Dr. Dilip Calabrese MD : 1965 BED: DIS: SPEC #: [id number] RECD: 06/14/20 11:06 STATUS: VLADISLAV BERNADINE #: [id number] TATA: 06/14/20 08:[address]: Dilip Calabrese DEPT: SURGICAL PATHOLOGY RECD BY: Annmarie Shankar ENTERED: 06/14/20 12:41 SP TYPE: BREAST BX OTHR DR: Dr. Mesha Mattson MD Tissues: A - Breast, NOS B - Breast, NOS Procedures: Surgery Specimen Level IV HEADER OPERATION: Left breast biopsy x2 PRE-OP DIAGNOSIS: Abnormal left breast ultrasound TISSUE SUBMITTED: A - Left breast 10 o'clock +3, B - Left breast 11 o'clock +6 MICROSCOPIC DIAGNOSIS A. Left breast 10 o'clock +3, core biopsy: Fragments of benign breast tissue with dense fibrosis. Negative for atypia or malignancy. B. Left breast 11 o'clock +6, core biopsy: Hyalinized fibroadenoma. Negative for atypia or malignancy. See comment. YANE:amberly 06/15/2020 COMMENT Correlation with clinical, radiologic findings and appropriate follow up are necessary. MICROSCOPIC DESCRIPTION Slides are reviewed. GROSS DESCRIPTION A - Received in fixative is one container labeled with the patient name and designated left breast 10 o'clock +3. The specimen consists of multiple elongated fragments of wall-yellow fibroadipose tissue that in aggregate measure 1 x 0.3 x 0.1 cm. The entire specimen is submitted in one cassette. B - Received in fixative is one container labeled with the patient name and designated left breast 11 o'clock +6. The specimen consists of multiple elongated fragments of wall-yellow fibroadipose tissue that in aggregate measure 1 x 0.5 x 0.1 cm. The entire specimen is submitted in one cassette. / SJ:amberly 06/14/20 TC:1 CPT: 16875 x2
--- NOTE | 2020-06-14 09:02 | BI_ITS ---
MAMMOGRAPHY - UNILATERAL DIAGNOSTIC: LEFT BREAST REASON FOR EXAM: Female, 54 years old. Ultrasound guided left breast biopsy. Clip placement. PERTINENT HISTORY: TECHNIQUE: Mediolateral oblique and craniocaudad views of the left breast were obtained. CAD: Full Field Digital Mammography with Computer Added Detection was performed. COMPARISON: Comparison is made with prior mammogram dated 06/03/2020. FINDINGS: Breast Composition: There are scattered areas of fibroglandular density. A tissue clip marker is seen within the 1 cm nodular density in the upper central portion of the left breast. No other significant abnormalities are identified. BI/DIAG MAMM W/CAD, UNILAT IMPRESSION: Status post biopsy of the 1 cm nodular density in the upper central portion of the left breast. A tissue clip marker seen within the nodule. ASSESSMENT CATEGORY: BIRADS Category 2: Benign. A letter regarding these results will be sent to the patient by the facility within 30 days. Approximately 10% of breast cancers are not detected by mammography. A normal mammogram should not delay biopsy of a clinically suspicious abnormality. Electronically Signed: Julio Cesar Pack MD at 10:36 EST , Service support ,
== END ==
PROVIDERS: PCP Family Medicine; Referring Provider Surgery; Visit Provider Surgery
DX: R92.8 Other abnormal and inconclusive findings on diagnostic imaging of breast (principal)
CPT/HCPCS: 77065; 88305

== ENCOUNTER → 2020-07-15 09:16 | Outpatient (CLI) | payer OTHER, SELFPAY ==
[2020-07-15 10:46] LABS: Hemoglobin A1c 7.1 % (3.8-5.6)
[2020-07-15 11:15] LABS: AST(SGOT) 20 U/L (15-37); Alanine Aminotransfer ALT/SGPT 35 U/L (13-56); Albumin, Serum 3.5 g/dL (3.2-5.0); Alkaline Phosphatase 115 U/L (45-117); Anion Gap 4 (5-15); BUN 6 mg/dL (7-18); BUN/Creat Ratio 8.1 RATIO (10-20); Bilirubin, Direct 0.21 mg/dL (0.00-0.30); Calcium,Total 9.1 mg/dL (8.5-10.1); Chloride 104 mmol/L (98-107); Cholesterol 121 mg/dL (200); Creatinine, Serum 0.74 mg/dL (0.55-1.02); EST Glomerular Filtration Rate 86 mL/min (>60); Est Glom Filt Rate - Afr Amer 104 mL/min (>60); Glucose 103 mg/dL (74-106); High Density Lipoprotein 66 mg/dL; Potassium 3.6 mmol/L (3.5-5.1); Protein, Total 7.5 g/dL (6.4-8.2); Sodium Level 138 mmol/L (136-145); Thyroid Stim Hormone (TSH) 3.62 uIU/mL (0.358-3.74); Triglycerides 81 mg/dL; Very Low Density Lipoprotein 16 mg/dL (5-40)
[2020-07-15 13:00] LABS: Creatinine, Urine (random) < 13.00 mg/dL (NO RANGE EST.); Microalbumin,Random Urine < 5.0 mg/L (NO RANGE EST.)
== END ==
PROVIDERS: PCP Family Medicine; Referring Provider Family Medicine; Visit Provider Family Medicine
DX: I10 Essential (primary) hypertension (principal); E11.9 Type 2 diabetes mellitus without complications; E78.5 Hyperlipidemia, unspecified
CPT/HCPCS: 36415; 80048; 80061; 80076; 82043; 82570; 83036; 84443

== ENCOUNTER 2020-07-20 05:47 | Day surgery (SDC) | payer OTHER, SELFPAY ==
[2019-01-01 14:14] VITALS: BMI 34.9
[2020-07-20] VITALS (12 sets, daily range): BP systolic 112–163; BP diastolic 51–74; PULSE 72–77; RESP 18; TEMP 36–36.2; O2SAT 95–100; BMI 34.4
--- NOTE | 2020-07-20 06:20 | HP.PCM_ITS ---
Problem List (1) Personal history of colonic polyps Status: Acute History of Present Illness Date of Admission: 07/20/20 The patient is a 54 year old F who presents for a surveillance colonoscopy. She states that she previously had a colon polyp. She states her previous colonos copy was about 6 years ago. She denies any bright red blood per rectum or melena. No abdominal pain. She is a diabetic but well controlled. She has not had COVID-19 Past Medical History Past Medical History (Chronic Problems): Chronic Problems (Last Reviewed 06/14/20 @ 08:13 by Veena Ramon) HTN (hypertension) (Chronic) Medical History: Medical History (Last Reviewed 06/14/20 @ 08:13 by Veena Ramon) Fibroadenoma of left breast (Acute) D24.2 Abnormal ultrasound of breast (Acute) R92.8 Abnormal mammogram of left breast (Acute) R92.8 Incisional hernia (Acute) K43.2 Umbilical hernia (Acute) K42.9 Diabetes (Acute) E11.9 High cholesterol (Acute) E78.00 HTN (hypertension) (Chronic) I10 Allergies Penicillins Allergy (Verified 07/14/20 09:37) Unknown Home Medications: Ambulatory Orders Medication Instructions Recorded atorvastatin 10 mg tablet 10 mg PO QHS 08/30/18 losartan 25 mg tablet 25 mg PO QHS 08/30/18 metformin 1,000 mg tablet 1,000 mg PO QHS 08/30/18 Cyanocobalamin (Vitamin B-12) 1,000 mcg PO DAILY 09/11/18 [Vitamin B-12] Pyridoxine HCl [Vitamin B6] 100 mg PO DAILY 09/11/18 glimepiride 2 mg tablet 4 mg PO DAILY tab 06/14/20 Multivitamin with Minerals 1 each PO DAILY 07/14/20 [Multiple Vitamin] Surgical History: Surgical History (Last Reviewed 06/14/20 @ 08:13 by Veena Ramon) S/P repair of ventral hernia (Acute) Z98.890, Z87.19 01/01/19 S/P vein stripping (Acute) Z98.890 S/P laparoscopic cholecystectomy (Acute) Z90.49 S/P section (Acute) Z98.891 Smoking Status: Never smoker Tobacco Use: Non-smoker Review of Systems Constitutional: Denies: Chills, Fever Respiratory: Denies: Cough, Shortness of Breath Gastrointestinal: Denies: Abdominal Pain, Melena Endocrine: Denies: Change in Body Habitus VTE Information - Inpt Only VTE Present on Admission: No - Physical Exam Vitals/I&O's: Body Mass Index (BMI) 34.9 Finger Stick Blood Glucose 236 General: Alert, Oriented x3, Cooperative, No apparent distress HEENT: Atraumatic Oral: Moist Mucosa Neck: Supple Lungs: Clear to auscultation, Normal air movement Cardiovascular: Regular rate, Regular Rhythm Abdomen: Soft, Non Tender Extremities: No Calf Tenderness Psych/Mental Status: Normal Affect Microbiology Past 72 Hours 07/19/20 11:25 Interface Orders SARS-CoV-2 Antigen (Rapid) - Final Assessment/Plan All Active Problems (Last Reviewed 06/14/20 @ 08:13 by Veena Ramon) Personal history of colonic polyps (Acute) Fibroadenoma of left breast (Acute) Abnormal ultrasound of breast (Acute) Abnormal mammogram of left breast (Acute) S/P repair of ventral hernia (Acute) Incisional hernia (Acute) S/P vein stripping (Acute) S/P laparoscopic cholecystectomy (Acute) S/P section (Acute) Umbilical hernia (Acute) Diabetes (Acute) High cholesterol (Acute) The patient presents via an open access for a colonoscopy with possible biopsy or polypectomy is indicated. She is aware of the technique, benefit, risk, alternatives. She has had an opportunity to ask and have questions answered. We will proceed as noted. Dilip Calabrese M.D., F.A.C.S.
[2020-07-20 06:36] LABS: Bedside Glucose 121 mg/dL (70-110)
--- NOTE | 2020-07-20 07:00 | COLBX_PTH ---
PATIENT: JAE HENAO LOC: [facility] U#:[id number] AGE/SX: 54/F ROOM: RE07/20/[address]: Dr. Dilip Calabrese MD : 1965 BED: DIS: 07/20/2020 SPEC #: [id number] RECD: 07/20/20 11:20 STATUS: VLADISLAV BERNADINE #: [id number] TATA: 07/20/20 07:[address]: Dilip Calabrese DEPT: SURGICAL PATHOLOGY RECD BY: Annmarie Shankar ENTERED: 07/20/20 12:26 SP TYPE: COLON BX OTHR DR: Dr. Mesha Mattson MD Tissues: Sigmoid colon biopsy Procedures: Surgery Specimen Level IV HEADER OPERATION: Colonoscopy - open access (MOD) PRE-OP DIAGNOSIS: History of colonic polyps TISSUE SUBMITTED: Distal sigmoid polyps x2 MICROSCOPIC DIAGNOSIS Distal sigmoid colon polyps, biopsy: Fragments of hyperplastic polyp. AM:amberly 07/21/2020 MICROSCOPIC DESCRIPTION Slides are reviewed. GROSS DESCRIPTION Received in fixative is one container labeled with the patient's name and designated distal sigmoid polyp x2. The specimen consists of two irregular fragments of light wall soft tissue that in aggregate measure 0.8 x 0.3 x 0.1 cm. The specimen is totally submitted in one cassette. / SJ:amberly 07/20/20 TC:5 CPT: 14614
--- NOTE | 2020-07-20 09:01 | OP.CCLET_ITS ---
07/20/2020 Mesha Mattson [address] [place] [address] Re : Colonoscopy procedure for Barbra Lopez Dear Dr. Mattson This procedure was performed on Monday, July 20, 2020. My impressions and recommendations are as follows: Impressions : - Hemorrhoids found on perianal exam. - One 4 mm polyp in the distal sigmoid colon, removed with a cold biopsy forceps. Resected and retrieved. - One 6 mm polyp in the distal sigmoid colon, removed with a cold biopsy forceps. Resected and retrieved. - Diverticulosis in the sigmoid colon. - The examination was otherwise normal. Recommendations : - Discharge patient to home. - Resume previous diet. - Continue present medications. - Repeat colonoscopy in 5 years for surveillance based on pathology results. - Telephone my office for pathology results in 1 week. My findings are described in the full procedure note, which is enclosed. If I can be of further assistance, please feel free to contact me at Doctor phone number(s): Work: . Sincerely, Dilip Calabrese MD 07/20/2020 9:00:20 AM This report has been signed electronically.
--- NOTE | 2020-07-20 09:01 | OP.COLON_ITS ---
Patient Name: Barbra Lopez Procedure Date: 07/20/2020 6:56 AM Date of : 1965 Age: 54 Procedure: Colonoscopy Indications: High risk colon cancer surveillance: Personal history of colonic polyps Providers: Dilip Calabrese MD Referring MD: Mesha Mattson Medicines: Midazolam 4.5 mg IV, Meperidine 100 mg IV Patient Profile: Last Colonoscopy: 5 years ago. Complications: No immediate complications. Procedure: Pre-Anesthesia Assessment: - Prior to the procedure, a History and Physical was performed, and patient medications and allergies were reviewed. The patient's tolerance of previous anesthesia was also reviewed. The risks and benefits of the procedure and the sedation options and risks were discussed with the patient. All questions were answered, and informed consent was obtained. Prior Anticoagulants: The patient has taken no previous anticoagulant or antiplatelet agents. ASA Grade Assessment: II - A patient with mild systemic disease. After reviewing the risks and benefits, the patient was deemed in satisfactory condition to undergo the procedure. After I obtained informed consent, the scope was passed under direct vision. Throughout the procedure, the patient's blood pressure, pulse, and oxygen saturations were monitored continuously. The colonoscope was introduced through the anus and advanced to the cecum, identified by appendiceal orifice and ileocecal valve. The colonoscopy was performed without difficulty. The patient tolerated the procedure well. The quality of the bowel preparation was good. The ileocecal valve and the appendiceal orifice were photographed. Moderate Sedation: Moderate (conscious) sedation was personally administered by the endoscopist. The following parameters were monitored: oxygen saturation, heart rate, blood pressure, and response to care. Total physician intraservice time was 17 minutes. Scope In: 8:39:43 AM Scope Withdrawal Time 0 hours 10 minutes 5 seconds Scope Out: 8:54:45 AM Total Procedure Duration Time 0 hours 15 minutes 2 seconds Findings: Hemorrhoids were found on perianal exam. A 4 mm polyp was found in the distal sigmoid colon. The polyp was sessile. The polyp was removed with a cold biopsy forceps. Resection and retrieval were complete. A 6 mm polyp was found in the distal sigmoid colon. The polyp was sessile. The polyp was removed with a cold biopsy forceps. Resection and retrieval were complete. Multiple diverticula were found in the sigmoid colon. The exam was otherwise without abnormality. Impression: - Hemorrhoids found on perianal exam. - One 4 mm polyp in the distal sigmoid colon, removed with a cold biopsy forceps. Resected and retrieved. - One 6 mm polyp in the distal sigmoid colon, removed with a cold biopsy forceps. Resected and retrieved. - Diverticulosis in the sigmoid colon. - The examination was otherwise normal. Recommendation: - Discharge patient to home. - Resume previous diet. - Continue present medications. - Repeat colonoscopy in 5 years for surveillance based on pathology results. - Telephone my office for pathology results in 1 week. Procedure Code(s): --- Professional --- 74193, Colonoscopy, flexible; with biopsy, single or multiple 83763, 59, Moderate sedation services provided by the same physician or other qualified health pet caretaker performing the diagnostic or therapeutic service that the sedation supports, requiring the presence of an independent trained observer to assist in the monitoring of the patient's level of consciousness and physiological status; initial 15 minutes of intraservice time, patient age 5 years or older Diagnosis Code(s): --- Professional --- Z86.010, Personal history of colonic polyps K64.9, Unspecified hemorrhoids D12.5, Benign neoplasm of sigmoid colon K57.30, Diverticulosis of large intestine without perforation or abscess without bleeding CPT copyright 2017 [employer]. All rights reserved. The codes documented in this report are preliminary and upon salesperson automobiles review may be revised to meet current compliance requirements. Dilip Calabrese MD 07/20/2020 9:00:20 AM This report has been signed electronically. Number of Addenda: 0 Note Initiated On: 07/20/2020 6:56 AM
== END 2020-07-20 09:59 | disposition home or self-care (01) ==
LOC: EN 05:47 → AC 05:49
PROVIDERS: PCP Family Medicine; Referring Provider Family Medicine; Visit Provider Surgery
PROC: 0DJD8ZZ Inspection of Lower Intestinal Tract, Via Natural or Artificial Opening Endoscopic (ICD-10-PCS; CPT 45378; principal; 2020-07-20 06:55)
DX: Z12.11 Encounter for screening for malignant neoplasm of colon (principal); K63.5 Polyp of colon; K57.30 Diverticulosis of large intestine without perforation or abscess without bleeding; K64.9 Unspecified hemorrhoids; E11.9 Type 2 diabetes mellitus without complications; I10 Essential (primary) hypertension; Z86.010 Personal history of colon polyps; Z79.84 Long term (current) use of oral hypoglycemic drugs; Z79.899 Other long term (current) drug therapy; Z20.822 Contact with and (suspected) exposure to COVID-19
CPT/HCPCS: 45380; 82962; 87426; 88305; 99152; 99153; C9803; J7120

== ENCOUNTER → 2020-12-15 14:19 | Outpatient (CLI) | payer OTHER, SELFPAY ==
--- NOTE | 2020-12-15 14:27 | BI_ITS ---
MAMMOGRAPHY - UNILATERAL DIAGNOSTIC: LEFT BREAST REASON FOR EXAM: Female, 55 years old. Follow-up for left ultrasound-guided breast biopsy. PERTINENT HISTORY: Non-contributory. TECHNIQUE: Digital unilateral breast ramon (3D mammographic acquisition) in the CC and MLO projections. 2-D mediolateral oblique (MLO) and craniocaudad (CC) views of both breasts were obtained. CAD: Full Field Digital Mammography with Computer Added Detection was performed. COMPARISON: Comparison is made with prior mammogram dated 06/14/2020 and 06/03/2020. FINDINGS: Breast Composition: There are scattered areas of fibroglandular density. A tissue clip marker is seen within the retroareolar nodule in the left breast. A tissue clip marker is also seen within a nodular density in the upper central portion of the left breast as well. No other significant abnormalities are identified. There has been no significant change since the prior study. BI/DIAG MAMM W/CAD, UNILAT IMPRESSION: Stable unilateral diagnostic mammogram. One year follow-up mammogram recommended. (A) ASSESSMENT CATEGORY: BIRADS Category 2: Benign. A letter regarding these results will be sent to the patient by the facility within 30 days. Approximately 10% of breast cancers are not detected by mammography. A normal mammogram should not delay biopsy of a clinically suspicious abnormality. Electronically Signed: Julio Cesar Pack MD at 15:29 EDT , Service support ,
== END ==
PROVIDERS: PCP Family Medicine; Referring Provider Surgery; Visit Provider Surgery
DX: D24.2 Benign neoplasm of left breast (principal); Z98.890 Other specified postprocedural states
CPT/HCPCS: 77061; 77065; G0279

== ENCOUNTER → 2021-01-21 15:33 | Outpatient (CLI) | payer OTHER, SELFPAY ==
[2021-01-21 17:56] LABS: Anion Gap 10 (5-15); BUN 9 mg/dL (7-18); Calcium,Total 9.1 mg/dL (8.5-10.1); Chloride 106 mmol/L (98-107); EST Glomerular Filtration Rate 109 mL/min (>60); Est Glom Filt Rate - Afr Amer 132 mL/min (>60); Glucose 75 mg/dL (74-106); Potassium 4.1 mmol/L (3.5-5.1); Sodium Level 142 mmol/L (136-145)
== END ==
PROVIDERS: PCP Family Medicine; Referring Provider Family Medicine; Visit Provider Family Medicine
DX: E11.9 Type 2 diabetes mellitus without complications (principal); Z71.89 Other specified counseling
CPT/HCPCS: 36415; 80048; 86769

== ENCOUNTER → 2021-08-22 | Outpatient (CLI) | payer OTHER, SELFPAY ==
[2021-08-22 12:32] LABS: Hemoglobin A1c 9.3 % (3.8-5.6)
[2021-08-22 12:48] LABS: Microalbumin,Random Urine < 5.0 mg/L (NO RANGE EST.)
[2021-08-22 12:49] LABS: AST(SGOT) 29 U/L (15-37); Alanine Aminotransfer ALT/SGPT 38 U/L (13-56); Anion Gap 6 (5-15); BUN 8 mg/dL (7-18); Calcium,Total 9.2 mg/dL (8.5-10.1); Chloride 104 mmol/L (98-107); Cholesterol 154 mg/dL (200); EST Glomerular Filtration Rate 78 mL/min (>60); Est Glom Filt Rate - Afr Amer 95 mL/min (>60); Glucose 174 mg/dL (74-106); High Density Lipoprotein 67 mg/dL; Potassium 4.1 mmol/L (3.5-5.1); Sodium Level 137 mmol/L (136-145); Triglycerides 109 mg/dL; Very Low Density Lipoprotein 22 mg/dL (5-40)
== END | disposition home or self-care (01) ==
LOC: MFPLAB 10:50
PROVIDERS: PCP Family Medicine; Visit Provider Family Medicine
DX: E78.5 Hyperlipidemia, unspecified (principal); E11.9 Type 2 diabetes mellitus without complications; I10 Essential (primary) hypertension
CPT/HCPCS: 36415; 80048; 80061; 82043; 82570; 83036; 84450; 84460

== ENCOUNTER → 2021-08-23 | Outpatient (CLI) | payer OTHER, SELFPAY ==
[2021-08-30 16:31] LABS: HPV APTIMA, High Risk Negative (Negative); HPV Reflexed? YES, CHARGE PATIENT
== END | disposition home or self-care (01) ==
PROVIDERS: PCP Family Medicine; Visit Provider Family Medicine
DX: Z12.4 Encounter for screening for malignant neoplasm of cervix (principal)
CPT/HCPCS: 87624; 88175; G0145

== ENCOUNTER → 2021-12-16 | Outpatient (CLI) | payer OTHER, SELFPAY ==
--- NOTE | 2021-12-16 15:32 | BI_ITS ---
MAMMOGRAPHY - BILATERAL SCREENING REASON FOR EXAM: Female, 56 years old. Routine annual screening examination. PERTINENT HISTORY: Grandmother with breast cancer. Remote left needle breast biopsy. TECHNIQUE: Digital bilateral breast samir (3D mammographic acquisition) in the CC and MLO projections. 2-D mediolateral oblique (MLO) and craniocaudad (CC) views of both breasts were obtained. CAD: Full Field Digital Mammography with Computer Added Detection was performed. COMPARISON: Comparison is made with prior study dated 06/03/2020 and 12/15/2020. FINDINGS: Breast Composition: There are scattered areas of fibroglandular density. There are no dominant masses or suspicious calcifications. A tissue clip marker is seen within a 5.6 mm nodule in the retroareolar region of the left breast. A tissue marker is also seen in the central portion of the left breast. Stable small benign-appearing bilateral axillary lymph nodes. No other significant abnormalities are identified. There has been no significant change since the prior study. BI/SCRN MAMM (CAD)W/SAMIR BILAT IMPRESSION: Stable bilateral screening mammogram. Yearly follow-up mammogram recommended. (A) ASSESSMENT CATEGORY: BIRADS Category 2: Benign. A letter regarding these results will be sent to the patient by the facility within 30 days. Approximately 10% of breast cancers are not detected by mammography. A normal mammogram should not delay biopsy of a clinically suspicious abnormality. [id number] Electronically Signed: Julio Cesar Pack MD at 8:08 EDT ,
== END | disposition home or self-care (01) ==
LOC: OPBI 15:31
PROVIDERS: PCP Family Medicine; Visit Provider Family Medicine
DX: Z12.31 Encounter for screening mammogram for malignant neoplasm of breast (principal)
CPT/HCPCS: 77063; 77067

== ENCOUNTER → 2022-05-30 | Outpatient (CLI) | payer OTHER, SELFPAY ==
[2022-05-30 13:30] LABS: AST(SGOT) 26 U/L (15-37); Alanine Aminotransfer ALT/SGPT 44 U/L (13-56); Albumin, Serum 3.3 g/dL (3.2-5.0); Alkaline Phosphatase 113 U/L (45-117); Anion Gap 9 (5-15); BUN 9 mg/dL (7-18); BUN/Creat Ratio 12.8 RATIO (10-20); Bilirubin, Direct 0.15 mg/dL (0.00-0.30); Calcium,Total 9.1 mg/dL (8.5-10.1); Chloride 102 mmol/L (98-107); Cholesterol 149 mg/dL (200); EST Glomerular Filtration Rate 91 mL/min (>60); Est Glom Filt Rate - Afr Amer 110 mL/min (>60); Glucose 214 mg/dL (74-106); High Density Lipoprotein 67 mg/dL; Potassium 3.9 mmol/L (3.5-5.1); Protein, Total 7.3 g/dL (6.4-8.2); Sodium Level 138 mmol/L (136-145); Triglycerides 124 mg/dL; Very Low Density Lipoprotein 25 mg/dL (5-40)
[2022-05-30 13:32] LABS: Microalbumin,Random Urine < 5.0 mg/L (NO RANGE EST.)
[2022-05-30 14:10] LABS: Hemoglobin A1c 8.9 % (3.8-5.6)
== END | disposition home or self-care (01) ==
LOC: MFPLAB 10:09
PROVIDERS: PCP Family Medicine; Referring Provider Family Medicine; Visit Provider Family Medicine
DX: I10 Essential (primary) hypertension (principal); E11.9 Type 2 diabetes mellitus without complications
CPT/HCPCS: 36415; 80048; 80061; 80076; 82043; 82570; 83036

== ENCOUNTER → 2023-06-08 | Outpatient (CLI) | payer OTHER, SELFPAY ==
--- OUTSIDE RECORDS SUMMARY | 2023-06-08 17:51 | XMS RPT_ITS | CCD ---
Author Name Unknown Address [address] [place] [address] Organization [facility] Results Test Name Value Interpretation Reference Range Facil ity Summary Purpose Family History No Family History Records Found Advance Directives No Advanced Directives Records Found Additional Source Comments INFORMATION SOURCE (unrecogn ized section and content) FOR RECORDS PERTAINING TO PATIENTS WHO ARE OR HAVE BEEN ENROLLED IN A CHEMICAL DEPENDENCY/SUBSTANCEABUSE PROGRAM, SOME INFORMATION MAY BE OMITTED. This clinical summary was aggregated from multiple sources. Caution should be exercised in using it in the provision of clinical care. This summary normalizes information from multiple sources, and as a consequence, information in this document may materially change the coding, format and clinical context of patient data. In addition, data may be omitted in some cases. CLINICAL DECISIONS SHOULD BE BASED ON THE PRIMARY CLINICAL RECORDS. [facility]. provides no warranty or guarantee of the accuracy or completeness of information in this document.
[2023-06-08 18:13] LABS: AST(SGOT) 27 U/L (15-37); Alanine Aminotransfer ALT/SGPT 47 U/L (13-56); Albumin, Serum 3.5 g/dL (3.2-5.0); Alkaline Phosphatase 115 U/L (45-117); Anion Gap 3 (5-15); BUN 7 mg/dL (7-18); BUN/Creat Ratio 8.8 RATIO (10-20); Bilirubin, Direct 0.17 mg/dL (0.00-0.30); Calcium,Total 9.5 mg/dL (8.5-10.1); Chloride 107 mmol/L (98-107); Cholesterol 126 mg/dL (200); EST Glomerular Filtration Rate 78 mL/min (>60); Est Glom Filt Rate - Afr Amer 95 mL/min (>60); Globulin 3.8 g/dL (2.2-4.2); Glucose 156 mg/dL (74-106); High Density Lipoprotein 63 mg/dL; Protein, Total 7.3 g/dL (6.4-8.2); Sodium Level 139 mmol/L (136-145); Thyroid Stim Hormone (TSH) 2.57 uIU/mL (0.358-3.74); Triglycerides 89 mg/dL; Very Low Density Lipoprotein 18 mg/dL (5-40)
== END | disposition home or self-care (01) ==
PROVIDERS: PCP Family Medicine; Referring Provider Family Medicine; Visit Provider Family Medicine
DX: E11.69 Type 2 diabetes mellitus with other specified complication (principal)
CPT/HCPCS: 36415; 80048; 80061; 80076; 84443

== ENCOUNTER → 2023-08-15 | Outpatient (CLI) | payer OTHER, SELFPAY ==
--- NOTE | 2023-08-15 16:10 | BI_ITS ---
MAMMOGRAPHY - BILATERAL SCREENING REASON FOR EXAM: Female, 57 years old. Routine annual screening examination. PERTINENT HISTORY: Grandmother with breast cancer. TECHNIQUE: Digital bilateral breast samir (3D mammographic acquisition) in the CC and MLO projections. 2-D mediolateral oblique (MLO) and craniocaudad (CC) views of both breasts were obtained. CAD: Full Field Digital Mammography with Computer Added Detection was performed. COMPARISON: Comparison is made with prior study dated December 16, 2021 and December 15, 2020. FINDINGS: Breast Composition: There are scattered areas of fibroglandular density. There are no dominant masses or suspicious calcifications. Once again, a tissue clip marker is seen within a 5.6 mm nodule in the retroareolar region of the left breast. Stable bilateral fat containing axillary lymph nodes. No other significant abnormalities are identified. There has been no significant change since the prior study. BI/SCRN MAMM (CAD)W/SAMIR BILAT IMPRESSION: Stable bilateral screening mammogram. Yearly follow-up mammogram recommended. (A) ASSESSMENT CATEGORY: BIRADS Category 2: Benign. A letter regarding these results will be sent to the patient by the facility within 30 days. Approximately 10% of breast cancers are not detected by mammography. A normal mammogram should not delay biopsy of a clinically suspicious abnormality. [id number] Electronically Signed: Julio Cesar Pack MD at 8:53 EDT ,
== END | disposition home or self-care (01) ==
LOC: OPBI 16:10
PROVIDERS: PCP Family Medicine; Referring Provider Family Medicine; Visit Provider Family Medicine
DX: Z12.31 Encounter for screening mammogram for malignant neoplasm of breast (principal)
CPT/HCPCS: 77063; 77067

== ENCOUNTER → 2024-08-28 | Outpatient (CLI) | payer OTHER, SELFPAY ==
[2024-08-28 11:19] LABS: Absolute Lymphocyte Count 2.48 X10^3/uL (0.83-4.51); Absolute Neutrophil Count 4.7 X10^3/uL (2.0-7.7); Basophil# 0.05 X10^3/uL; Basophil% 0.6 % (0-1); Eosinophil# 0.29 X10^3/uL; Eosinophils% 3.5 % (0-5); Hematocrit 40.4 % (37-47); Hemoglobin 13.1 g/dL (12.0-15.0); Lymphocyte # 2.48 X10^3/ul (0.83-4.51); Lymphocyte % 30.1 % (19-41); Mean Corp Hgb Conc 32.4 g/dL (32-36); Mean Corpuscular Hgb 30.4 pg (27.0-32.0); Mean Corpuscular Volume 93.7 fL (81-99); Mean Platelet Vol. 10.8 fl (6.2-12.0); Monocyte# 0.67 X10^3/uL; Monocyte% 8.1 % (0-10); NRBC Flagged by Analyzer 0 % (0-5); Neutrophil # 4.72 X10^3/uL (2.7-7.7); Neutrophil % 57.5 % (47-70); Platelet Count 247 K/mm3 (150-450); RBC Distribution Width SD 44.7 fl (35.1-43.9); Red Blood Count 4.31 M/mm3 (4.2-5.4); White Blood Count 8.2 K/mm3 (4.4-11.0)
[2024-08-28 11:35] LABS: Hemoglobin A1c 10.3 % (<=5.6)
[2024-08-28 11:58] LABS: ALB/GLOB Ratio 1.3 RATIO (0.9-2.4); AST(SGOT) 24 U/L (<=31); Alanine Aminotransfer ALT/SGPT 24 U/L (<=34); Albumin, Serum 3.9 g/dL (3.4-4.8); Alkaline Phosphatase 110 U/L (35-104); Anion Gap 12 (5-15); BUN 10 mg/dL (4-19); BUN/Creat Ratio 15.8 RATIO (10-20); Carbon Dioxide 24.7 mmol/L (21.0-32.0); Chloride 101 mmol/L (98-108); Cholesterol 133 mg/dL (<=200); Creatinine, Serum 0.63 mg/dL (0.70-1.20); EST Glomerular Filtration Rate 102 (>60); Glucose 139 mg/dL (70-99); High Density Lipoprotein 52 mg/dL; Low Density Lipoprotein Calc. 59 mg/dL; Potassium 4.1 mmol/L (3.3-5.1); Protein, Total 6.9 g/dL (5.9-8.4); Sodium Level 137 mmol/L (133-145); Total Bilirubin 0.67 mg/dL (0.00-1.30); Triglycerides 109 mg/dL; Very Low Density Lipoprotein 22 mg/dL (5-40); Vitamin D,25 Hydroxy 16.7 ng/mL (30-100); cholesterol:hdl ratio screen 2.54
== END | disposition home or self-care (01) ==
LOC: MFPLAB 09:24
PROVIDERS: PCP Family Medicine; Referring Provider Family Medicine; Visit Provider Family Medicine
DX: E11.59 Type 2 diabetes mellitus with other circulatory complications (principal); Z78.0 Asymptomatic menopausal state
CPT/HCPCS: 36415; 80053; 80061; 82306; 83036; 84443; 85025

== ENCOUNTER → 2024-08-28 | Outpatient (CLI) | payer OTHER, SELFPAY ==
--- NOTE | 2024-08-28 12:11 | BI_ITS ---
EXAM: SCRN MAMM (CAD)W/SAMIR BILAT DATE: 08/28/2024 CLINICAL HISTORY: F, Age 58 y/o , SCREENING BREAST CANCER RISK ASSESSMENT: Not reported TECHNIQUE: Bilateral screening digital breast tomosynthesis with 2D and 3D images. Computer aided detection. COMPARISON: Prior exam(s) were compared . FINDINGS: TISSUE DENSITY: The breast tissue is heterogenously dense, which may obscure small masses. Bilateral Breast Mammographic Findings: No suspicious masses, calcifications or other abnormalities are identified. BI/SCRN MAMM (CAD)W/SAMIR BILAT IMPRESSION: OVERALL FINAL ASSESSMENT: BIRADS 1 NEGATIVE RECOMMENDATION: Routine annual follow-up in 1 Year A letter with findings and recommendations will be mailed to the patient. Reading Location: [id number]
== END | disposition home or self-care (01) ==
LOC: OPBI 12:09
PROVIDERS: PCP Family Medicine; Referring Provider Family Medicine; Visit Provider Family Medicine
DX: Z12.31 Encounter for screening mammogram for malignant neoplasm of breast (principal)
CPT/HCPCS: 77063; 77067

== ENCOUNTER → 2024-11-26 | Outpatient (CLI) | payer OTHER, SELFPAY ==
[2024-11-26 18:39] LABS: Vitamin D,25 Hydroxy 34.1 ng/mL (30-100)
== END | disposition home or self-care (01) ==
LOC: MFPLAB 16:38
PROVIDERS: PCP Family Medicine; Referring Provider Family Medicine; Visit Provider Family Medicine
DX: E55.9 Vitamin D deficiency, unspecified (principal)
CPT/HCPCS: 36415; 82306

== ENCOUNTER → 2024-12-23 | Outpatient (CLI) | payer OTHER, SELFPAY ==
--- NOTE | 2024-12-23 15:04 | VDLE_ITS ---
Reason For Study Reason For Study: LLE SWELLING RIGHT LEFT CFV is compressible, spontaneous, phasic, competent GSV is normal. and demonstrates normal augmentation. CFV is compressible, spontaneous, phasic, competent, Procedure and demonstrates normal augmentation. This is a venous duplex using B-mode, color flow and FV is compressible, spontaneous, phasic, competent spectral Doppler. and demonstrates normal augmentation. Exam performed in department. POP V is compressible, spontaneous, phasic, competent A preliminary report was called and/or faxed to and demonstrates normal augmentation. Odilon @ [phone] @ 16:00. T/P Trunk is compressible. PTV is compressible. LT PerV is compressible. VL/Venous Duplex US, Unilateral Interpretation Summary Deep veins of the left lower extremity are patent and compressible segmentally. There is no evidence of left lower extremity deep vein thrombosis. The left great saphenous vein appears patent an d compressible segmentally. Ordering Physician: Svetlana Donald Referring Physician: Svetlana Donald Performed By: Vivien Beavers, NELLI, RVT
== END | disposition home or self-care (01) ==
PROVIDERS: PCP Family Medicine; Referring Provider Family Medicine; Visit Provider Family Medicine
DX: I83.892 Varicose veins of left lower extremity with other complications (principal)
CPT/HCPCS: 93971

== ENCOUNTER 2025-02-07 21:12 | Emergency (ER) | payer OTHER, SELFPAY ==
[2025-02-07 21:13] VITALS: BP 185/75; PULSE 87; RESP 18; TEMP 35.9; O2SAT 100; BMI 39.6
--- NOTE | 2025-02-07 22:22 | RAD_ITS ---
PROCEDURE: SHOULDER MIN 2 VIEWS 02/07/2025 REASON FOR EXAM: PAIN TECHNIQUE: Procedure Code: RADSH Modality: DX Procedure: SHOULDER MIN 2 VIEWS Laterality: FINDINGS: Mildly displaced fracture of the humeral head. Moderate acromioclavicular and mild glenohumeral degenerative changes. RAD/Shoulder min 2 Views IMPRESSION: Humeral head fracture. Reading Location: [id number]
--- OUTSIDE RECORDS SUMMARY | 2025-02-07 22:28 | XMS RPT_ITS | CCD ---
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 Checo Dewey MD Attending Provider [phone] Odilon PLATT, Svetlana Primary Care Physician Svetlana Donald MD Attending Physician Dr. Checo Dewey MD Attending Physician [phone] Sandy Plasencia Attending Physician Odilon, Chalon Primary Care Unavailable Odilon, Chalon Referring Unavailable Odilon, Chalon Attending Unavailable Odilon, Chalon Referring Unavailable Odilon, Chalon Attending Unavailable Odilon, Chalon Primary Care Unavailable Odilon, Chalon Referring Unavailable Sandy Verdin Attending Unavailable Odilon, Chalon Primary Care Unavailable Odilon, Chalon Referring Unavailable GradyCheco Attending Unavailable Odilon, Chalon Primary Care Unavailable Odilon, Chalon Referring Unavailable Odilon, Chalon Attending Unavailable Odilon, Chalon Primary Care Unavailable Odilon, Chalon Primary Care Unavailable Odilon, Chalon Referring Unavailable Odilon, Chalon Attending Unavailable Allergies Allergy Classification Reported Allergen(s) Allergy Type Date of Onset Reaction(s) Facility (7 sources) Penicillins Allergy to substance 12-22-2020 Unknown [facility] (1 source) Penicillins Drug allergy (disorder) 01-21-2025 [facility] Repository Medications Current Medications Medication Drug Class(es) Dates Sig (Normalized) Sig (Original) atorvastatin 10 mg oral tablet (9 sources) HMG-CoA Reductase Inhibitor Start: 08-30-2018 take 1 tablet by mouth at bedtime Atorvastatin 10 mg tablet Active 10 mg PO AT BEDTIME August 30, 2018 12:00am cholesterol Complies with drug therapy losartan potassium 25 mg oral tablet (9 sources) Angiotensin 2 Receptor Micki Start: 08-30-2018 take 1 tablet by mouth at bedtime Losartan 25 mg tablet Active 25 mg PO AT BEDTIME August 30, 2018 12:00am blood pressure Complies with drug therapy Multivitamin With Minerals (5 sources) Start: 07-14-2020 Multivitamin With Minerals Active 1 EACH PO DAILY July 14, 2020 9:37am Start: 07-14-2020 Multivitamin W ith Minerals Active 1 EACH PO DAILY July 13, 2020 11:00pm Start: 07-14-2020 Multivitamin W ith Minerals Active 1 EACH PO DAILY July 14, 2020 12:00am Multivitamin With Minerals 1 EACH tablet (4 sources) Start: 07-14-2020 take 1 tablet by mouth once daily Multivitamin With Minerals 1 EACH tablet Active 1 NMA PO DAILY July 14, 2020 12:00am Complies with drug therapy Start: 07-14-2020 take 1 tablet by yusef once daily Multivitamin With Minerals 1 EACH tablet Active 1 NMA PO DAILY July 14, 2020 12:00am vitamin b12 1 mg oral tablet (9 sources) Vitamin B12 Start: 09-11-2018 take 1 tablet by mouth once daily Cyanocobalamin (Vitamin B-12) 1,000 MCG tablet Active 1000 ug PO DAILY September 11, 2018 12:00am supplement Complies with drug therapy vitamin b6 50 mg oral tablet (9 sources) Start: 09-11-2018 Pyridoxine (Vi tamin B6) 50 MG tablet Active 100 mg PO DAILY September 11, 2018 12:00am supplement Complies with drug therapy Completed/Discontinued Medications Medication Drug Class(es) Dates Sig (Normalized) Sig (Original) acetaminophen 325 mg / HYDROcodone bitartrate 5 mg oral tablet (9 sources) Opioid Agonist Start: 01-01-2019 End: 01-03-2019 Hydrocodone-Acetamino phen 1 TABLET tablet Discontinued 1 {tbl} PO EVERY 6 HOURS NEEDED as needed for Pain 6 2 0 January 01, 2019 January 02, 2019 12:00am January 03, 2019 12:11am Postoperative pain Other acute postprocedural pain Start: 01-01-2019 End: 01-03-2019 take 1 tablet by mouth every six hours as needed Hydrocodone-Acetaminophen Discontinued 1 TABLET PO EVERY 6 HOURS NEEDED 6 2 January 01, 2019 January 03, 2019 12:11am biotin 1 mg oral capsule (1 source) Start: 01-21-2025 take 1 capsule by mouth once daily Biotin 1 mg capsule Discontinued 1 mg PO daily January 21, 2025 12:00am ergocalciferol 1.25 mg oral capsule (1 source) Provitamin D2 Compound Start: 01-16-2025 Ergocalciferol (Vitamin D2) 1,250 mcg (50,000 unit) capsule Discontinued 1250 ug PO EVERY WEEK January 16, 2025 12:00am glimepiride 2 mg oral tablet (19 sources) Sulfonylurea Start: 01-16-2025 take 2 tablets by mouth twice daily Glimepiride 2 mg tablet Discontinued 4 mg PO TWICE A DAY January 16, 2025 1:49pm diabetes Start: 06-14-2020 take 4 mg by mouth once daily Glimepiride Active 4 MG PO DAILY June 14, 2020 9:12am Start: 12-25-2018 End: 01-16-2025 take 2 tablets by mouth once daily Glimepiride 2 mg tablet Discontinued 4 mg PO DAILY June 14, 2020 9:12am January 16, 2025 1:51pm diabetes Magnesium (1 source) Start: 01-21-2025 take 1 tablet by mouth once daily Magnesium 250 mg tablet Discontinued 250 mg PO daily January 21, 2025 12:00am metFORMIN hydrochloride 1000 mg oral tablet (10 sources) Biguanide Start: 08-30-2018 End: 01-16-2025 take 1 tablet by mouth twice daily Metformin 1,000 mg tablet Discontinued 1000 mg PO TWICE A DAY January 16, 2025 1:49pm diabetes pioglitazone 30 mg oral tablet (1 source) Peroxisome Proliferator Receptor alpha Agonist, Peroxisome Proliferator Receptor gamma Agonist, Thiazolidinedione Start: 01-16-2025 take 1 tablet by mouth once daily Pioglitazone 30 mg tablet Discontinued 30 mg PO daily January 16, 2025 12:00am Problems Active Problems Problem Classification Problem Date Documented Date Episodic/Chronic Abdominal hernia (18 sources) Umbilical hernia; Translations: [Umbilical hernia without obstruction or gangrene] 01-09-2019 Episodic Diabetes mellitus with complications (1 source) Type 2 diabetes mellitus with other circulatory complications; Translations: [Type 2 diabetes mellitus with other circulatory complications] Onset: 09-02-2024 Chronic Diabetes mellitus without complication (9 sources) Diabetes mellitus; Translations: [Type 2 diabetes mellitus without complications] 01-09-2019 Chronic Disorders of lipid metabolism (9 sources) Hypercholesterolemia; Translations: [Pure hypercholesterolemia, unspecified] 01-09-2019 Chronic Essential hypertension (9 sources) Hypertensive disorder; Translations: [Essential (primary) hypertension] 01-09-2019 Chronic Other and unspecified benign neoplasm (5 sources) Fibroadenoma of breast; Translations: [Benign neoplasm of left breast] 06-17-2020 Episodic Other and unspecified benign neoplasm (9 sources) History of polyp of colon; Translations: [Personal history of colonic polyps] 07-20-2020 Episodic Other and unspecified benign neoplasm (4 sources) Benign neoplasm of left breast; Translations: [Fibroadenoma of left breast] 06-17-2020 Episodic Other diseases of veins and lymphatics (2 sources) Lymphedema; Translations: [Lymphedema, not elsewhere classified] 01-21-2025 Chronic Other diseases of veins and lymphatics (2 sources) Vascular insufficiency; Translations: [Venous insufficiency (chronic) (peripheral)] 01-21-2025 Episodic Residual codes; unclassified (3 sources) H/O: Peripheral vascular disease procedure; Translations: [Other specified postprocedural states] Episodic Residual codes; unclassified (9 sources) History of hernia repair; Translations: [Other specified postprocedural states] 07-20-2020 Episodic Comment on above: 01/01/19 Residual codes; unclassified (6 sources) History of surgical procedure on vein; Translations: [Other specified postprocedural states] 01-09-2019 Episodic Varicose veins of lower extremity (2 sources) Varicose veins of lower extremity; Translations: [Asymptomatic varicose veins of unspecified lower extremity] Onset: 12-30-2024 01-21-2025 Episodic Past or Other Problems Problem Classification Problem Date Documented Date Episodic/Chronic Other screening for suspected conditions (not mental disorders or infectious disease) (19 sources) Ultrasonography of breast abnormal; Translations: [Other abnormal and inconclusive findings on diagnostic imaging of breast] Onset: 09-02-2024 06-14-2020 Episodic Results Test Name Value Interpretation Reference Range Facility MR/Lillian 01-21-2025 /ROM[facility] [address] [place] [address] OFFICE VISIT Date of Service: 01/21/25 MR#: [id number] Acct: [id number] Name: JAE HENAO Rep #: [id number] : 1965 Provider: JESUS Luo Age/Sex: 59/F Location: [facility] Status: Signed Intake Vital Signs 01/21/25 09:16 Weight: 215 lb BP 159/79 H Blood Pressure Location Lt brachial Position Sitting Respiration 16 Pulse 69 Pulse Source Monitor Temp 98.2 F Temp Source Temporal Pulse Oximetry (%) 98 Oxygen Delivery Method room air Intake Visit Reasons: Varicose veins Chief Complaint: establisk care Is patient in pain?: No Allergies Penicillins Allergy (Verified 01/21/25 09:21) Unknown Medications ???Medication ???Instructions ???Recorded ???Confirmed ???Type atorvastatin 10 mg tablet 10 mg PO QHS cholesterol 08/30/18 01/16/25 History losartan 25 mg tablet 25 mg PO QHS blood pressure 01/16/25 History cyanocobalamin (vitamin B-12) 1,000 mcg PO DAILY supplement 08/2201/16/25 History 1,000 mcg tablet pyridoxine (vitamin B6) 50 mg 100 mg PO DAILY supplement 01/16/25 History tablet multivitamin with minerals 1 each PO DAILY 07/14/20 01/16/25 History ergocalciferol (vitamin D2) 1,250 1,250 mcg PO QWEEK 01/16/2501/16 History mcg (50,000 unit) capsule glimepiride 2 mg tablet 4 mg PO BID diabetes 01/16/2512/23 History metformin 1,000 mg tablet 1,000 mg PO BID diabetes 01/16/25 01/16/25 History pioglitazone 30 mg tablet 30 mg PO QDAY 01/16/25 01/16/25 Hi story biotin 1 mg capsule 1 mg PO QDAY 01/21/25 01/21/25 His tory magnesium 250 mg tablet 250 mg PO QDAY 01/21/25 01/21/25 H istory Is last menstrual period known: No Post menopausal: Yes Patient : No Have you fallen in the past year?: No PFSH Medical History (Updated 01/21/25 @ 14:58 by JESUS Luo) Fibroadenoma of left breast Abnormal ultrasound of breast Abnormal mammogram of left breast Incisional hernia Umbilical hernia Diabetes High cholesterol HTN (hypertension) Surgical History S/P repair of ventral hernia S/P vein stripping S/P laparoscopic cholecystectomy S/P section Family History Grandmother Breast cancer Social History Smoking Status: Never smoker alcohol intake: never substance use type: does not use caffeine: Yes what type of physical activity do you participate in: walking frequency: daily HPI HPI HPI: JAE HENAO, is a 59 F who presents to the office today for consultation regarding varicose veins as referred from her PCP Dr. Donald. She had a venous doppler earlier this month which was negative for DVT, did not include a reflux study. She reports that she has noticed varicose veins and LLE edema to some degree ever since having children. She had a prior venous ablation or stripping by Dr. Jalloh 2010 of a symptomatic L medial thigh varicosity which she reports helped a lot; but now she has had increasing achiness along a newer L medial thigh/calf varicosity and increased edema over the last year or two as well. She reports she tried compression stockings back prior to her last ablation and it did not help, but she has not tried them more recently. She does stay active. She does not have any history of prior DVT or PE. She does not have any wounds or chronic skin changes. ROS General General: No weight change, appetite, fatigue, colon cancer, breast cancer or weakness HEENT HEENT: No difficulty swallowing, eye injury, eye surgery, swollen glands or hoarseness Endo Endocrine: Yes diabetes mellitus; No thyroid disease, thyroid cancer, Hair loss, heat intolerance or cold intolerance Skin Skin: No rash or changing moles Musc Musculoskeletal: No back problems, arthritis, rheumatoid arthritis, gout or joint pain Cardio Cardiovascular: Yes high blood pressure; No murmur, pacemaker, heart disease, atrial fibrillation, heart attack, heart stent, palpitations, shortness of breath with exertion or chest pain Psych Psychiatric: No depression, anxiety or hearing voices Resp Respiratory: No shortness of breath, Yes sleep apnea, No cough, No COPD, No asthma, No emphysema and No wheezing Gastro Gastrointestinal: No abdominal pain, No nausea or vomiting, No diarrhea, No constipation, No blood in stool, No acid reflux, No hemorrhoids, No ulcers, No gallbladder problem and No black,tarry stools Alex Hematologic: No blood thinners, No blood disorders, No bleeding, No anemia and No blood clots Neuro Neurologic: No system reviewed and no additional complaints, exce (more content not included)... Normal [facility] Venous duplex ultrasound rep ortOrdered By: Checo Dewey on 12-24-2024 US Vein [facility] [address] [place] [address] Venous Duplex US, Unilateral 12/23/24 1514 MR#: [id number] Acct: [id number] Name: JAE HENAO Rep #:[id number] : 1965 59 From: Checo Lozano Attending Dr: Dr. Svetlana Donald MD S tatus: REG CLI Ordering Dr: Svetlana Donald MD Date: 06/17 Location: [facility] Sex: F C Admitted: Reason For Study Reason For Study: LLE SWELLING RIGHT LEFT CFV is compressible, spontaneous, phasic, competent GSV is normal. and demonstrates normal augmentation. CFV is compressible, spontaneous, phasic, competent, Procedure and demonstrates normal augmentation. This is a venous duplex using B-mode, color flow and FV is compressible, spontaneous, phasic, competent spectral Doppler. and demonstrates normal augmentation. Exam performed in department. POP V is compressible, spontaneous, phasic, competent A preliminary report was called and/or faxed to and demonstrates normal augmentation. Odilon @ [phone] @ 16:00. T/P Trunk is compressible. PTV is compressible. LT PerV is compressible. VL/Venous Duplex US, Unilateral Interpretation Summary Deep veins of the left lower extremity are patent and compressible segmentally. There is no evidence of left lower extremity deep vein thrombosis. The left great saphenous vein appears patent andcompressible segmentally. Ordering Physician: Svetlana Donald Referring Physician: Svetlana Donald Performed By: Vivien Beavers, NELLI, RVT 12/24/24 1336 Date _ Checo Dewey MD CC: Dr. 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 [address] Venous Duplex US, Unilateral 12/23/241513 MR#: [id number] Acct: [id number] Name: JAE HENAO Rep #: [id number] : 1965 59 From: Checo Dewey MD Attending Dr: Dr. Svetlana Donald MD Status: REG C Ordering Dr: Svetlana Donald MD Date: 12/23/24 Location: [facility] Sex: F C Admitted: Reason For Study Reason For Study: LLE SWELLING RIGHT LEFT CFV is compressible, spontaneous, phasic, competent GSV is normal. and demonstrates normal augmentation. CFV is compressible, spontaneous, phasic, competent, Procedure and demonstrates normal augmentation. This is a venous duplex using B-mode, color flow and FV is compressible, spontaneous, phasic, competent spectral Doppler. and demonstrates normal augmentation. Exam performed in department. POP V is compressible, spontaneous, phasic, competent A preliminary report was called and/or faxed to and demonstrates normal augmentation. Odilon @ [phone] @ 16:00. T/P Trunk is compressible. PTV is compressible. LT PerV is compressible. VL/Venous Duplex US, Unilateral Interpretation Summary Deep veins of the left lower extremity are patent and compressible segmentally. There is no evidence of left lower extremity deep vein thrombosis. The left great saphenous vein appears patent and compressible segmentally. Ordering Physician: Svetlana Donald Referring Physician: Svetlana Donald Performed By: Vivien Beavers, SUSANACS, RVT 12/24/24 1336 Date Checo Dewey MD CC: Dr. 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 [place], [place], [id number] Absolute lymphocyte countOrd ered By: Svetlana Donald on 08-28-2024 Lymphocytes Auto (Unsp spec) [#/Vol] 2.48 10*3/uL 0.83-4.51 [facility] Absolute neutrophil countOrd ered By: Svetlana Donald on 08-28-2024 Neutrophils (Bld) [#/Vol] 4.7 10*3/uL 2.0-7.7 [facility] Anion gap in Serum or Plasma Ordered By: Svetlana Donald on 08-28-2024 Anion gap [Moles/Vol] 12 mmol/L 5-15 [facility] Automated lymphocyte count a s percentage of total leukocytesOrdered By: Svetlana Donald on 08-28-2024 Lymphocytes/100 WBC Auto (Unsp spec) 30.1 % 19-41 [facility] BUN/creatinine ratioOrdered By: Svetlana Donald on 08-28-2024 Urea nitrogen/Creatinine [Mass ratio] 15.8 mg/mg 10-20 [facility] Basophil percentageOrdered B y: Svetlana Donald on 08-28-2024 Basophils/100 WBC (Bld) 0.6 % 0-1 [facility] Bilirubin, totalOrdered By: Svetlana Donald on 08-28-2024 Bilirubin [Mass/Vol] 0.67 mg/dL 0.00-1.30 [facility] Breast imaging reportOrdered By: Yun Farrell on 08-28-2024 Study report [facility] Imaging Services [address] [place] [address] SCRN MAMM (CAD)W/SAMIR BILAT MR#: [id number] Acct: [id number] Name: JAE HENAO Rep #: [id number] : 1965 F 58 From: Derrick Reagan MD PCP: Dr. Svetlana Donald MD Status: REG CL I Study:SCRN MAMM (CAD)W/SAMIR BILAT Date of Exa m: 08/28/24 Exam# [id number] Ordering Dr: Arabella Donald MD EXAM: SCRN MAMM (CAD)W/SAMIR BILAT DATE: 08/28/2024 CLINICAL HISTORY: F, Age 58 y/o , SCREENING BREAST CANCER RISK ASSESSMENT: Not reported TECHNIQUE: Bilateral screening digital breast tomosynthesis with 2D and 3D images. Computeraided detection. COMPARISON: Prior exam(s) were compared . FINDINGS: TISSUE DENSITY: The breast tissue is heterogenously dense, which may obscure small masses. Bilateral Breast Mammographic Findings: No suspicious masses, calcifications or other abnormalities are identified. BI/SCRN MAMM (CAD)W/SAMIR BILAT IMPRESSION: OVERALL FINAL ASSESSMENT: BIRADS 1 NEGATIVE RECOMMENDATION: Routine annual follow-up in 1 Year A letter with findings and recommendations will be mailed to the patient. Reading Location: [id number] CC: Dr. 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, [address] Absolute Neut 4.7 X10 3/uL Normal 2.0-7.7 [facility] Comment on above: Performed By: #### L 100.0100, L501.9985, L500.4050, L500.4100, L501.9520, L506.1001 #### [facility] [address] [place], [address] Basophils/100 WBC (Bld) 0.6 % Normal 0-1 [facility] Comment on above: Performed By: #### L 100.0100, L501.9985, L500.4050, L500.4100, L501.9520, L506.1001 #### [facility] [address] [place], [address] Eosinophils/100 WBC (Bld) 3.5 % Normal 0-5 [facility] Comment on above: Performed By: #### L 100.0100, L501.9985, L500.4050, L500.4100, L501.9520, L506.1001 #### [facility] [address] [facility] [place], [address] Erythrocyte distribution width (RBC) [Ratio] 13.0 % Normal 11.6-14.6 [facility] Comment on above: Performed By: #### L 100.0100, L501.9985, L500.4050, L500.4100, L501.9520, L506.1001 #### [facility] [address] [place], [address] Hematocrit (Bld) [Volume fraction] 40.4 % Normal 37-47 [facility] Comment on above: Performed By: #### L 100.0100, L501.9985, L500.4050, L500.4100, L501.9520, L506.1001 #### [facility] [address] [place], [address] Hemoglobin (Bld) [Mass/Vol] 13.1 g/dL Normal 12.0-15.0 [facility] Comment on above: Performed By: #### L 100.0100, L501.9985, L500.4050, L500.4100, L501.9520, L506.1001 #### [facility] [address] [place], [address] IG% 0.200 Normal 0.0-0.9 [facility] Comment on above: Result Comment: IG% - Immature Granulocytes (promyelocytes, myelocytes and metamyelocytes) > 1% indicates that a LEFT SHIFT is Present. Performed By: #### L 100.0100, L501.9985, L500.4050, L500.4100, L501.9520, L506.1001 #### [facility] [address] [place], [address] Lymphocytes/100 WBC (Bld) 30.1 % Normal 19-41 [facility] Comment on above: Performed By: #### L 100.0100, L501.9985, L500.4050, L500.4100, L501.9520, L506.1001 #### [facility] [address] [place], [address] MCH (RBC) [Entitic mass] 30.4 pg Normal 27.0-32.0 [facility] Comment on above: Performed By: #### L 100.0100, L501.9985, L500.4050, L500.4100, L501.9520, L506.1001 #### [facility] [address] [place], [address] MCHC (RBC) [Mass/Vol] 32.4 g/dL Normal 32-36 [facility] Comment on above: Performed By: #### L 100.0100, L501.9985, L500.4050, L500.4100, L501.9520, L506.1001 #### [facility] [address] [place], [address] MCV (RBC) [Entitic vol] 93.7 fL Normal 81-99 [facility] Comment on above: Performed By: #### L 100.0100, L501.9985, L500.4050, L500.4100, L501.9520, L506.1001 #### [facility] [address] [place], [address] Monocytes/100 WBC (Bld) 8.1 % Normal 0-10 [facility] Comment on above: Performed By: #### L 100.0100, L501.9985, L500.4050, L500.4100, L501.9520, L506.1001 #### [facility] [address] [place], [address] Neutrophils/100 WBC (Bld) 57.5 % Normal 47-70 [facility] Comment on above: Performed By: #### L 100.0100, L501.9985, L500.4050, L500.4100, L501.9520, L506.1001 #### [facility] [address] [place], [address] Nucleated RBC (Bld) [#/Vol] 0 10*3/uL Normal 0-5 [facility] Comment on above: Performed By: #### L 100.0100, L501.9985, L500.4050, L500.4100, L501.9520, L506.1001 #### [facility] [address] [place], [address] Platelet mean volume (Bld) [Entitic vol] 10.8 fL Normal 6.2-12.0 [facility] Comment on above: Performed By: #### L 100.0100, L501.9985, L500.4050, L500.4100, L501.9520, L506.1001 #### [facility] [address] [place], [address] Platelets (Bld) [#/Vol] 247 10*3/uL Normal 150-450 [facility] Comment on above: Performed By: #### L 100.0100, L501.9985, L500.4050, L500.4100, L501.9520, L506.1001 #### [facility] [address] [place], [address] RBC (Bld) [#/Vol] 4.31 10*6/uL Normal 4.2-5.4 [facility] Comment on above: Performed By: #### L 100.0100, L501.9985, L500.4050, L500.4100, L501.9520, L506.1001 #### [facility] [address] [place], [address] RDW SD 44.7 fl High 35.1-43.9 [facility] Comment on above: Performed By: #### L 100.0100, L501.9985, L500.4050, L500.4100, L501.9520, L506.1001 #### [facility] [address] [place], [address] WBC (Bld) [#/Vol] 8.2 10*3/uL Normal 4.4-11.0 [facility] Comment on above: Performed By: #### L 100.0100, L501.9985, L500.4050, L500.4100, L501.9520, L506.1001 #### [facility] [address] [place], [address] Calculated very low density lipoprotein (VLDL) cholesterol measurementOrdered By: Svetlana Donald on 08-28-2024 Calculated very low density lipoprotein (VLDL) cholesterol measurement 22 mg/dL 5-40 [facility] Carbon dioxide, total [Moles /volume] in Central venous bloodOrdered By: Svetlana Donald on 08-28-2024 CO2 [Moles/Vol] 24.7 mmol/L 21.0-32.0 [facility] Chloride assayOrdered By: Jazmine Donald on 08-28-2024 Chloride [Moles/Vol] 101 mmol/L 98-108 [facility] Comprehensive Metabolic Prof ilon 08-28-2024 Albumin [Mass/Vol] 3.9 g/dL Normal 3.4-4.8 [facility] Comment on above: Performed By: #### L 100.0100, L501.9985, L500.4050, L500.4100, L501.9520, L506.1001 #### [facility] [address] [place], [address] Albumin/Globulin [Mass ratio] 1.3 {ratio} Normal 0.9-2.4 [facility] Comment on above: Performed By: #### L 100.0100, L501.9985, L500.4050, L500.4100, L501.9520, L506.1001 #### [facility] [address] [place], [address] ALK PHOS 110 U/L High 35-104 [facility] Comment on above: Performed By: #### L 100.0100, L501.9985, L500.4050, L500.4100, L501.9520, L506.1001 #### [facility] [address] [place], [address] ALT [Catalytic activity/Vol] 24 U/L Normal <=34 [facility] Comment on above: Performed By: #### L 100.0100, L501.9985, L500.4050, L500.4100, L501.9520, L506.1001 #### [facility] [address] [place], [address] AST [Catalytic activity/Vol] 24 U/L Normal <=31 [facility] Comment on above: Performed By: #### L 100.0100, L501.9985, L500.4050, L500.4100, L501.9520, L506.1001 #### [facility] [address] [place], [address] Bilirubin [Mass/Vol] 0.67 mg/dL Normal 0.00-1.30 [facility] Comment on above: Performed By: #### L 100.0100, L501.9985, L500.4050, L500.4100, L501.9520, L506.1001 #### [facility] [address] [place], [address] BUN/CRE 15.8 RATIO Normal 10-20 [facility] Comment on above: Performed By: #### L 100.0100, L501.9985, L500.4050, L500.4100, L501.9520, L506.1001 #### [facility] [address] [place], [address] Calcium [Mass/Vol] 9.0 mg/dL Normal 7.6-11.0 [facility] Comment on above: Performed By: #### L 100.0100, L501.9985, L500.4050, L500.4100, L501.9520, L506.1001 #### [facility] [address] [place], [address] Chloride [Moles/Vol] 101 mmol/L Normal 98-108 [facility] Comment on above: Performed By: #### L 100.0100, L501.9985, L500.4050, L500.4100, L501.9520, L506.1001 #### [facility] [address] [place], [address] CO2 [Moles/Vol] 24.7 mmol/L Normal 21.0-32.0 [facility] Comment on above: Performed By: #### L 100.0100, L501.9985, L500.4050, L500.4100, L501.9520, L506.1001 #### [facility] [address] [place], [address] Creatinine [Mass/Vol] 0.63 mg/dL Low 0.70-1.20 [facility] Comment on above: Performed By: #### L 100.0100, L501.9985, L500.4050, L500.4100, L501.9520, L506.1001 #### [facility] [address] [place], [address] GAP 12 Normal 5-15 [facility] Comment on above: Performed By: #### L 100.0100, L501.9985, L500.4050, L500.4100, L501.9520, L506.1001 #### [facility] [address] [place], [address] GFR/1.73 sq M.predicted among non-blacks MDRD (S/P/Bld) [Vol rate/Area] 102 mL/min/{1.73_m2} Normal >60 [facility] Comment on above: Result Comment: mL/m in/1.73m2 CKD-EPI Creatinine Equation (2020) Performed By: #### L 100.0100, L501.9985, L500.4050, L500.4100, L501.9520, L506.1001 #### [facility] [address] [place], [address] Globulin (S) [Mass/Vol] 3.0 g/dL Normal 2.2-4.2 [facility] Comment on above: Performed By: #### L 100.0100, L501.9985, L500.4050, L500.4100, L501.9520, L506.1001 #### [facility] [address] [place], [address] Glucose [Mass/Vol] 139 mg/dL High 70-99 [facility] Comment on above: Performed By: #### L 100.0100, L501.9985, L500.4050, L500.4100, L501.9520, L506.1001 #### [facility] [address] [place], [address] Potassium [Moles/Vol] 4.1 mmol/L Normal 3.3-5.1 [facility] Comment on above: Performed By: #### L 100.0100, L501.9985, L500.4050, L500.4100, L501.9520, L506.1001 #### [facility] [address] [place], [address] Sodium [Moles/Vol] 137 mmol/L Normal 133-145 [facility] Comment on above: Performed By: #### L 100.0100, L501.9985, L500.4050, L500.4100, L501.9520, L506.1001 #### [facility] [address] [place], [address] T PROT 6.9 g/dL Normal 5.9-8.4 [facility] Comment on above: Performed By: #### L 100.0100, L501.9985, L500.4050, L500.4100, L501.9520, L506.1001 #### [facility] [address] [place], [address] Urea nitrogen [Mass/Vol] 10 mg/dL Normal 4-19 [facility] Comment on above: Performed By: #### L 100.0100, L501.9985, L500.4050, L500.4100, L501.9520, L506.1001 #### [facility] [address] [place], [address] Eosinophil percentageOrdered By: Svetlana Donald on 08-28-2024 Eosinophils/100 WBC (Bld) 3.5 % 0-5 [facility] Erythrocyte distribution wid th ratioOrdered By: Svetlana Donald on 08-28-2024 Erythrocyte distribution width (RBC) [Ratio] 13.0 % 11.6-14.6 [facility] Erythrocyte distribution wid th standard deviationOrdered By: Svetlana Donald on 08-28-2024 Erythrocyte distribution width (RBC) [Ratio] 44.7 fl High 35.1-43.9 [facility] Glomerular filtration rate ( GFR) estimation/1.73 sq m using serum, plasma, or whole bOrdered By: Svetlana Donald on 08-28-2024 GFR/1.73 sq M.predicted among non-blacks MDRD (S/P/Bld) [Vol rate/Area] 102 mL/min/{1.73_m2} >60 [facility] Comment on above: mL/min/1.73m2 CKD-EP I Creatinine Equation (2020) Hematocrit Auto (Bld) [Volum e fraction]Ordered By: Svetlana Donald on 08-28-2024 Hematocrit (Bld) [Volume fraction] 40.4 % 37-47 [facility] Hemoglobin A1con 08-28-2024 HbA1c (Bld) [Mass fraction] 10.3 % High <=5.6 [facility] Comment on above: Result Comment: Norm al < 5.7 % Prediabetic 5.7 - 6.4 % Diabetic >or= 6.5 % Please note range changes. Performed By: #### L 100.0100, L501.9985, L500.4050, L500.4100, L501.9520, L506.1001 #### [facility] [place] [address], [address] Hemoglobin A1c percentageOrd ered By: Svetlana Donald on 08-28-2024 HbA1c (Bld) [Mass fraction] 10.3 % High <5.7 [facility] Comment on above: Normal < 5.7 % Predi abetic 5.7 - 6.4 % Diabetic >or= 6.5 % Please note range changes. Hemoglobin measurementOrdere d By: Svetlana Donald on 08-28-2024 Hemoglobin (Bld) [Mass/Vol] 13.1 g/dL 12.0-15.0 [facility] Immature granulocytes/100 WB C Auto (Bld)Ordered By: Svetlana Donald on 08-28-2024 Immature granulocytes/100 WBC (Bld) 0.200 % 0.0-0.9 [facility] Comment on above: IG% - Immature Granu locytes (promyelocytes, myelocytes and metamyelocytes) > 1% indicates that a LEFT SHIFT is Present. LDL calc ser/plasOrdered By: Svetlana Donald on 08-28-2024 Cholesterol in LDL [Mass/Vol] 59 mg/dL [facility] Comment on above: Cfimbrvogn=950-668 m g/dL & Higher Amoz=857 mg/dL or greater Laboratory - Chemistry and C hemistry - challengeOrdered By: Svetlana Donald on 08-28-2024 AST [Catalytic activity/Vol] 24 U/L <32 [facility] Lipid Profileon 08-28-2024 CHOL:HDL 2.54 Normal [facility] Comment on above: Performed By: #### L 100.0100, L501.9985, L500.4050, L500.4100, L501.9520, L506.1001 #### [facility] [address] [place], [address] Cholesterol [Mass/Vol] 133 mg/dL Normal <=200 [facility] Comment on above: Result Comment: Chol esterol level, Desirable <200 mg/dL Borderline high cholesterol 200-239 mg/dL High cholesterol >=240 mg/dL Recommendations of the NCEP Adult Treatment Panel for the following risk-cutoff thresholds for the [place] population. Performed By: #### L 100.0100, L501.9985, L500.4050, L500.4100, L501.9520, L506.1001 #### [facility] [address] [place], [address] Cholesterol in HDL [Mass/Vol] 52 mg/dL Normal [facility] Comment on above: Result Comment: [place] Cholesterol Education Program (NCEP) guidelines: <40 mg/dL: Low HDL-cholesterol (major risk factor for CHD) >= 60 mg/dL: High HDL-cholesterol (negative risk factor for CHD) HDL-cholesterol is affected by a number of factors, e.g. smoking, exercise, hormones, sex and age. Performed By: #### L 100.0100, L501.9985, L500.4050, L500.4100, L501.9520, L506.1001 #### [facility] [address] [place], [address] Cholesterol in LDL [Mass/Vol] 59 mg/dL Normal [facility] Comment on above: Result Comment: Bord uoldnv=779-120 mg/dL Higher Gowv=734 mg/dL or greater Performed By: #### L 100.0100, L501.9985, L500.4050, L500.4100, L501.9520, L506.1001 #### [facility] [address] [place], [place], [id number] (563) Cholesterol in VLDL [Mass/Vol] 22 mg/dL Normal 5-40 [facility] Comment on above: Performed By: #### L 100.0100, L501.9985, L500.4050, L500.4100, L501.9520, L506.1001 #### [facility] [address] [place], [place], [id number] (651) Triglyceride [Mass/Vol] 109 mg/dL Normal [facility] Comment on above: Result Comment: The drugs N-Acetylcysteine and Metamizole may falsely depress this assay. Normal range: <150 mg/dL Borderline High: 150-199 mg/dL High: 200-499 mg/dL Very High: >500 mg/dL Performed By: #### L 100.0100, L501.9985, L500.4050, L500.4100, L501.9520, L506.1001 #### [facility] [address] [place], [place], [id number] MCV (mean corpuscular volume ) determinationOrdered By: vSetlana Donald on 08-28-2024 MCV (RBC) [Entitic vol] 93.7 fL 81-99 [facility] Mean corpuscular hemoglobin (MCH) determinationOrdered By: Svetlana Donald on 08-28-2024 MCH (RBC) [Entitic mass] 30.4 pg 27.0-32.0 [facility] Mean corpuscular hemoglobin concentration (MCHC) determinationOrdered By: Svetlana Donald on 08-28-2024 MCHC (RBC) [Mass/Vol] 32.4 g/dL 32-36 [facility] Mean platelet volume determi nationOrdered By: Svetlana Donald on 08-28-2024 Platelet mean volume (Bld) [Entitic vol] 10.8 fL 6.2-12.0 [facility] Monocyte percentageOrdered B y: Svetlaan Donald on 08-28-2024 Monocytes/100 WBC (Bld) 8.1 % 0-10 [facility] Neutrophil percentageOrdered By: Svetlana Donald on 08-28-2024 Neutrophils/100 WBC (Bld) 57.5 % 47-70 [facility] Nucleated red blood cell per centageOrdered By: Svetlana Donald on 08-28-2024 Nucleated RBC/100 WBC (Bld) [Ratio] 0 % 0-5 [facility] Platelet countOrdered By: Jazmine Donald on 08-28-2024 Platelets (Bld) [#/Vol] 247 10*3/uL 150-450 [facility] Potassium measurement (mass/ volume)Ordered By: Svetlana Donald on 08-28-2024 Potassium (Unsp spec) [Mass/Vol] 4.1 mmol/L 3.3-5.1 [facility] RBC Auto (Bld) [#/Vol]Ordere d By: Svetlana Donald on 08-28-2024 RBC (Bld) [#/Vol] 4.31 10*6/uL 4.2-5.4 [facility] SCRN MAMM (CAD)W/SAMIR BILATo n 08-28-2024 SCRN MAMM (CAD)W/SAMIR BILAT [facility] Imaging Services [address] [place], [place] [address] SCRN MAMM (CAD)W/SAMIR BILAT MR#: [id number] Acct: [id number] Name: JAE HENAO Rep #: [id number] : 1965 F 58 From: Yun Robles i, MD PCP: Dr. Svetlana Donald MD Status: REG CLI Study: SCRN MAMM (CAD)W/SAMIR BILAT Date of Exam: 12/15 Exam# [id number] Ordering Dr: Svetlana Donald MD EXAM: SCRN MAMM (CAD)W/SAMIR BILAT DATE: 08/28/2024 CLINICAL HISTORY: F, Age 58 y/o , SCREENING BREAST CANCER RISK ASSESSMENT: Not reported TECHNIQUE: Bilateral screening digital breast tomosynthesis with 2D and 3D images. Computer aided detection. COMPARISON: Prior exam(s) were compared . FINDINGS: TISSUE DENSITY: The breast tissue is heterogenously dense, which may obscure small masses. Bilateral Breast Mammographic Findings: No suspicious masses, calcifications or other abnormalities are identified. BI/SCRN MAMM (CAD)W/SAMIR BILAT IMPRESSION: OVERALL FINAL ASSESSMENT: BIRADS 1 NEGATIVE RECOMMENDATION: Routine annual follow-up in 1 Year A letter with findings and recommendations will be mailed to the patient. Reading Location: [facility] CC: Dr. 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 Normal [facility] Screening total cholesterol/ high density lipoprotein (HDL) cholesterol ratioOrdered By: Svetlana Donald on 08-28-2024 Cholesterol.total/Choles terol in HDL [Mass ratio] 2.54 {ratio} [facility] Serum creatinine measurement (mass/volume)Ordered By: Svetlana Donald on 08-28-2024 Creatinine [Mass/Vol] 0.63 mg/dL Low 0.70-1.20 [facility] Serum globulin measurementOr dered By: Svetlana Donald on 08-28-2024 Globulin (S) [Mass/Vol] 3.0 g/dL 2.2-4.2 [facility] Serum glucose measurement (m ass/volume)Ordered By: Svetlana Donald on 08-28-2024 Glucose [Mass/Vol] 139 mg/dL High 70-99 [facility] Serum or plasma alanine arnett otransferase (ALT) measurementOrdered By: Svetlana Donald on 08-28-2024 ALT [Catalytic activity/Vol] 24 U/L <35 [facility] Serum or plasma albumin chuck urement (mass/volume)Ordered By: Svetlana Donald on 08-28-2024 Albumin [Mass/Vol] 3.9 g/dL 3.4-4.8 [facility] Serum or plasma albumin/glob ulin mass ratioOrdered By: Svetlana Donald on 08-28-2024 Albumin/Globulin [Mass ratio] 1.3 {ratio} 0.9-2.4 [facility] Serum or plasma alkaline claudette sphatase measurementOrdered By: Svetlana Donald on 08-28-2024 ALP [Catalytic activity/Vol] 110 U/L High 35-104 [facility] Serum or plasma calcium chuck urement (mass/volume)Ordered By: Svetlana Donald on 08-28-2024 Calcium [Mass/Vol] 9.0 mg/dL 7.6-11.0 [facility] Serum or plasma cholesterol in HDL measurement (mass/volume)Ordered By: Svetlana Donald on 08-28-2024 Cholesterol in HDL [Mass/Vol] 52 mg/dL >40 [facility] Comment on above: National Cholesterol Education Program (NCEP) guidelines:<40 mg/dL: Low HDL-cholesterol (major risk factor for CHD)>= 60 mg/dL: High HDL-cholesterol (negative risk factor for CHD)HDL-cholesterol is affected by a number of factors, e.g. smoking, exercise, hormones, sex and age. Serum or plasma cholesterol measurement (mass/volume)Ordered By: Svetlana Donald on 08-28-2024 Cholesterol [Mass/Vol] 133 mg/dL <201 [facility] Comment on above: Cholesterol level, D esirable <200 mg/dLBorderline high cholesterol 200-239 mg/dLHigh cholesterol >=240 mg/dLRecommendations of the NCEP Adult Treatment Panel for the following risk-cutoff thresholds for the [place] population. Serum or plasma urea nitroge n measurement (mass/volume)Ordered By: Svetlana Donald on 08-28-2024 Urea nitrogen [Mass/Vol] 10 mg/dL 4-19 [facility] Sodium levelOrdered By: Kvng Donald on 08-28-2024 Sodium [Moles/Vol] 137 mmol/L 133-145 [facility] TSH DL <= 0.005 mIU/L QnOrde red By: Svetlana Donald on 08-28-2024 TSH Qn 3.740 uIU/mL 0.300-4.200 [facility] Thyroid Stim Hormone (TSH)on 08-28-2024 TSH 3.740 uIU/mL Normal 0.300-4.200 [facility] Comment on above: Performed By: #### L 100.0100, L501.9985, L500.4050, L500.4100, L501.9520, L506.1001 #### [facility] [address] [place], [address] Total proteinOrdered By: Arabella Donald on 08-28-2024 Protein [Mass/Vol] 6.9 g/dL 5.9-8.4 [facility] Triglycerides measurementOrd ered By: Svetlana Donald on 08-28-2024 Triglyceride [Mass/Vol] 109 mg/dL <199 [facility] Comment on above: The drugs N-Acetylcy steine and Metamizole may falsely depress this assay. Normal range: <150 mg/dLBorderline High: 150-199 mg/dLHigh: 200-499 mg/dLVery High: >500 mg/dL Vitamin D,25 Hydroxyon 08-28 Vitamin D 25-OH 16.7 ng/mL Low 30-100 [facility] Comment on above: Result Comment: Denise min D Status Deficiency: <20 ng/mL (50nmol/L) Insufficiency: 20-30 ng/mL (50-75 nmol/L) Sufficiency: 30-100 ng/mL (75-250 nmol/L) Toxicity: >100 ng/mL (>250 nmol/L) Performed By: #### L 100.0100, L501.9985, L500.4050, L500.4100, L501.9520, L506.1001 #### [facility] [address] [place], [address] White blood cell (WBC) count Ordered By: Svetlana Donald on 08-28-2024 WBC (Bld) [#/Vol] 8.2 10*3/uL 4.4-11.0 [facility] Basophil percentageOrdered B y: Mesha Malcolmjocelin on 06-08-2023 Bilirubin [Mass/Vol] 0.60 mg/dL 0.20-1.00 [facility] Comment on above: For patients on eltr ombopag therapy, use of Dimension [place] TBIL is not recommended. Chloride [Moles/Vol] 107 mmol/L 98-107 [facility] Cholesterol [Mass/Vol] 126 mg/dL <200 [facility] Comment on above: <200 mg/dL Desirable 200-240 mg/dL Borderline >240 mg/dL High Risk Glucose [Mass/Vol] 156 mg/dL 74-106 [facility] Comment on above: Fasting Glucose resu lt greater than or equal to 126 mg/dL suggests DIABETES MELLITUS per A.D.A. criteria. Potassium [Moles/Vol] 4.0 mmol/L 3.5-5.1 [facility] Protein [Mass/Vol] 7.3 g/dL 6.4-8.2 [facility] Sodium [Moles/Vol] 139 mmol/L 136-145 [facility] Triglyceride [Mass/Vol] 89 mg/dL <199 [facility] Comment on above: The drugs N-Acetylcy steine and Metamizole may falsely depress this assay.Serum Triglycerides Reference Interval Normal <150 mg/dL Borderline high 150 - 199 mg/dL High 200 - 499 mg/dL Very High > or = 500 mg/dL Direct bilirubinOrdered By: Mesha Mattson on 06-08-2023 Bilirubin.direct [Mass/Vol] 0.17 mg/dL 0.00-0.30 [facility] - Chemistry and C hemistry - challengeOrdered By: Mesha Mattson on 06-08-2023 ALP [Catalytic activity/Vol] 115 U/L 45-117 [facility] ALT [Catalytic activity/Vol] 47 U/L 13-56 [facility] Cholesterol in HDL [Mass/Vol] 63 mg/dL >40 [facility] Comment on above: The drugs N-Acetylcy steine and Metamizole may falsely depress this assay. Reference Range HDL <40 mg/dL Low HDL Cholesterol HDL >or= 60 mg/dL High HDL Cholesterol Cholesterol in LDL [Mass/Vol] 45 mg/dL 0-130 [facility] CO2 [Moles/Vol] 29.0 mmol/L 21.0-32.0 [facility] Globulin (S) [Mass/Vol] 3.8 g/dL 2.2-4.2 [facility] Urea nitrogen/Creatinine [Mass ratio] 8.8 mg/mg 10-20 [facility] No Panel InformationOrdered By: Mesha Mattson on 06-08-2023 Estimated GFR (MDRD) Amer 95 mL/min >60 [facility] Comment on above: GFR Calc Estimated GFR (MDRD) Non-Af Amer 78 mL/min >60 [facility] Comment on above: Non- GFR Calc VLDL Cholesterol 18 mg/dL 5-40 [facility] Serum or plasma calcium chuck urement (mass/volume)Ordered By: Mesha Mattson on 06-08-2023 Calcium [Mass/Vol] 9.5 mg/dL 8.5-10.1 [facility] Serum or plasma creatinine m easurement (mass/volume)Ordered By: Mesha Mattson on 06-08-2023 Creatinine [Mass/Vol] 0.80 mg/dL 0.55-1.02 [facility] Comment on above: The validity of the calculated GFR & GFRAA in patients over 70 years has not been determined. Clinical correlation is essential. Serum or plasma thyroid stim ulating hormone (TSH) measurement (units/volume)Ordered By: Mesha Mattson on 06-08-2023 TSH Qn 2.57 uIU/mL 0.358-3.74 [facility] Serum or plasma urea nitroge n measurement (mass/volume)Ordered By: Mesha Mattson on 06-08-2023 Urea nitrogen [Mass/Vol] 7 mg/dL 7-18 [facility] Thin prep Papanicolaou smear with manual screeningOrdered By: Mesha Mattson on 06-08-2023 Thin prep Papanicolaou smear with manual screening 3.5 g/dL 3.2-5.0 [facility] Thin prep Papanicolaou smear with manual screening 27 U/L 15-37 [facility] Thin prep Papanicolaou smear with manual screening 3 5-15 [facility] Cervical or vagninal specime n microscopic examination by cytology stain (reported ason 08-23-2021 Cytology report Cyto stain Doc (Cvx/Vag) Comment . [facility] Work Phone: Comment on above: The Pap smear is a s creening test designed to aid in thedetection of premalignant and malignant conditions of theuterine cervix. It is not a diagnostic procedure andshould not be used as the sole means of detecting cervicalcancer. Both false-positive and false-negative reports dooccur. Detection in cervical specim en of any of human papilloma virus (HPV) 16, 18, 31, 33,on 08-23-2021 HPV 16+18+31+33+35+39+45+51+ 52+56+58+59+66+68 DNA Probe+sig amp Ql (Cvx) Negative Negative [facility] Work Phone: Comment on above: This nucleic acid am plification test detects fourteen high-risk HPV types (16,18,31,33,35,39,45,51,52,56,58,59,66,68)without differentiation.Performed at: - [address] [id number] Director: Isabella Briscoe MD, Phone: [phone] at: =[facility] [id number] Director: Isabella Briscoe MD, Phone: [phone] Laboratory - Cytologyon [place] Cyto stain Nom (Cvx/Vag) [ID] Comment . [facility] Work Phone: Comment on above: Merari Berry Cyto technologist Laboratory - Miscellaneous t estson 08-23-2021 Service comment (Unsp spec) [Interp] Comment . [facility] Work Phone: Comment on above: This liquid based Th inPrep(R) pap test was screened withthe use of an image guided system. Service comment (Unsp spec) [Interp] . . [facility] Work Phone: No Panel Informationon 08-23 Pathology report final diagnosis Narrative Comment . [facility] Work Phone: Comment on above: NEGATIVE FOR INTRAEP ITHELIAL LESION OR MALIGNANCY.THIS SPECIMEN WAS RESCREENED PART OF OUR SEXER PROGRAM. Basophil percentageon 2021 Chloride [Moles/Vol] 104 mmol/L 98-107 [facility] Work [facility]: Cholesterol [Mass/Vol] 154 mg/dL <200 [facility] Work Phone: Comment on above: <200 mg/dL Desirable 200-240 mg/dL Borderline >240 mg/dL High Risk Glucose [Mass/Vol] 174 mg/dL 74-106 [facility] Work Phone: Comment on above: Fasting Glucose resu lt greater than or equal to 126 mg/dL suggests DIABETES MELLITUS per A.D.A. criteria. Potassium [Moles/Vol] 4.1 mmol/L 3.5-5.1 [facility] Work Phone: Sodium [Moles/Vol] 137 mmol/L 136-145 [facility] Work Phone: Triglyceride [Mass/Vol] 109 mg/dL <199 [facility] Work Phone: Comment on above: The drugs N-Acetylcy steine and Metamizole may falsely depress this assay.Serum Triglycerides Reference Interval Normal <150 mg/dL Borderline high 150 - 199 mg/dL High 200 - 499 mg/dL Very High > or = 500 mg/dL Laboratory - Chemistry and C hemistry - challengeon 08-22-2021 ALT [Catalytic activity/Vol] 38 U/L 13-56 [facility] Work Phone: CO2 [Moles/Vol] 27.0 mmol/L 21.0-32.0 [facility] Work Phone: Urea nitrogen/Creatinine [Mass ratio] 10.0 mg/mg 10-20 [facility] Work Phone: No Panel Informationon 08-22 Estimated GFR (MDRD) Amer 95 mL/min >60 [facility] Work Phone: Comment on above: GFR Calc Estimated GFR (MDRD) Non-Af Amer 78 mL/min >60 [facility] Work Phone: Comment on above: Non- GFR Calc Urine Microalbumin/Creatinine Ratio TNP [facility] Work Phone: Comment on above: Test not performed Serum or plasma calcium chuck urement (mass/volume)on 08-22-2021 Calcium [Mass/Vol] 9.2 mg/dL 8.5-10.1 [facility] Work Phone: Serum or plasma cholesterol in HDL measurement (mass/volume)on 08-22-2021 Cholesterol in HDL [Mass/Vol] 67 mg/dL >40 [facility] Work Phone: Comment on above: The drugs N-Acetylcy steine and Metamizole may falsely depress this assay. Reference Range HDL <40 mg/dL Low HDL Cholesterol HDL >or= 60 mg/dL High HDL Cholesterol Serum or plasma cholesterol in VLDL measurement (mass/volume)on 08-22-2021 Cholesterol in VLDL [Mass/Vol] 22 mg/dL 5-40 [facility] Work Phone: Serum or plasma creatinine m easurement (mass/volume)on 08-22-2021 Creatinine [Mass/Vol] 0.80 mg/dL 0.55-1.02 [facility] Work Phone: Comment on above: The validity of the calculated GFR & GFRAA in patients over 70 years has not been determined. Clinical correlation is essential. Serum or plasma low density lipoprotein (LDL) cholesterol measurement (mass/volume)on 08-22-2021 Cholesterol in LDL [Mass/Vol] 65 mg/dL 0-130 [facility] Work Phone: Serum or plasma urea nitroge n measurement (mass/volume)on 08-22-2021 Urea nitrogen [Mass/Vol] 8 mg/dL 7-18 [facility] Work Phone: Thin prep Papanicolaou smear with manual screeningon 08-22-2021 Thin prep Papanicolaou smear with manual screening 29 U/L 15-37 [facility] Work Phone: Thin prep Papanicolaou smear with manual screening 6 5-15 [facility] Work Phone: Thin prep Papanicolaou smear with manual screening < 5.0 mg/L NO RANGE EST. [facility] Work Phone: Urine creatinine measurement (mass/volume)on 08-22-2021 Creatinine (U) [Mass/Vol] 30.80 mg/dL NO RANGE EST. [facility] Work Phone: Whole blood hemoglobin A1c/t otal hemoglobin ratio (mass fraction)on 08-22-2021 HbA1c (Bld) [Mass fraction] 9.3 % 3.8-5.6 [facility] Work Phone: Comment on above: Normal < 5.7 % Predi abetic 5.7 - 6.4 % Diabetic >or= 6.5 % Please note range changes. Rayray 05-31-2020 MAYI Telephone (OBGYWM) JAE HENAO ([id number]) 1965 F Date Time Provider Department 05/31/20 SHAHZAD VILLALOBOS ([facility]) OBGYWM During your visit today, we recorded the following information about you: Michael Ku RN 05/31/2020 9:38 AM Signed Patient wants to slate picker mammogram order today. Does not want it faxed. To to sign. Michael Ku RN 05/31/2020 9:38 AM Signed Order signed by . Patient notified. In envelope at front end engineer with PSR on 2nd floor for patient to slate picker. Michael Ku RN Allergies As of Date: 05/31/2020 Noted Allergy Reaction PENICILLINS 03/30/2005 2 - Rash Date Reviewed: 12/13/2018 [facility] Adrianne - Fully Assessed Reason for Visit: Orders [681] Prescriptions as of 05/31/2020 Sig: LOSARTAN 50 MG TABLET ATORVASTATIN 10 MG TABLET Take 10 mg by mouth daily at * GLIMEPIRIDE 2 MG TABLET Take 2 mg by mouth once daily. METFORMIN 1,000 MG TABLET Take 1,000 mg [...] tablet daily. Problem List As Of Date 05/31/2020 Noted Resolved DM manif NEC type II [E11.69] More... Essential hypertension [I10] Other and unspecified hyperlipidemia [E78.5] Cholecystitis [K81.9] 11/14/2012 05/20/2014 Acute hemorrhagic cholecystitis [K81.0] 11/14/2012 05/20/2014 Cholelithiasis [K80.20] 11/14/2012 05/20/2014 Encounter Status:Closed by MICHAEL KU RN on 05/31/20 Normal [facility] Vital Signs Date Time Vital Sign Value Performing Clinician Faci lity 01-21-2025 09:16-0400 Body temperature 98.2 [degF] Svetlana Donald MD Work Phone: [facility] 01-21-2025 09:16-0400 Body weight 97.52 kg Svetlana Donald MD Work Phone: [facility] 01-21-2025 09:16-0400 Diastolic blood pressure 79 mm[Hg] Svetlana Donald MD Work Phone: [facility] 01-21-2025 09:16-0400 Heart rate 69 /min Svetlana Donald MD Work Phone: [facility] 01-21-2025 09:16-0400 Respiratory rate 16 /min Svetlana Donald MD Work Phone: [facility] 01-21-2025 09:16-0400 SaO2% (BldA) [Mass fraction] 98 % Svetlana Donald MD Work Phone: [facility] 01-21-2025 09:16-0400 Systolic blood pressure 159 mm[Hg] Svetlana Donald MD Work Phone: [facility] Encounters Encounter Date Encounter Type Care Provider Facility Start: 01-21-2025 End: 01-21-2025 Patient encounter procedure Sandy LEE -[facility] Work Phone: Start: 01-21-2025 End: 01-21-2025 ambulatory Svetlana Donald MD Work Phone: -[facility] Start: 12-23-2024 Non-patient / Non-visit Dr. Checo waddell MD -[facility] Start: 12-23-2024 End: 12-23-2024 ambulatory Svetlana Donald MD Work Phone: -[facility]iovascular Services Start: 12-23-2024 End: 12-23-[address] Svetlana Donald MD -Cardiovascular Services Work Phone: Start: 12-23-2024 End: 12-23-2024 ambulatory Svetlana Donald Facility:[facility] Start: 11-26-[address] Svetlana Donald MD -Laboratory [facility] Start: [facility] Start: 08-28-2024 End: 08-28-2024 ambulatory Svetlana Donald MD Work Phone: [facility] Work Phone: Start: 08-28-2024 End: 08-28-[address] Svetlana Donald MD -Outpatient Breast Imaging Work Phone: Start: 08-28-2024 End: 08-28-2024 ambulatory Svetlana Donald MD Work Phone: [facility] Work Phone: Start: 08-28-2024 End: 08-28-[address] [facility] Start: 08-28-2024 End: 08-28[facility] Start: 08-15-2023 End: 08-15-2023 ambulatory [facility] Work Phone: Start: 08-15-2023 End: 08-15-2023 Patient encounter procedure [facility]-Outpatient Breast Imaging Work Phone: Start: 06-08-2023 End: 06-08-2023 ambulatory [facility] Work Phone: Start: 06-08-2023 End: 06-08-2023 Patient encounter procedure [facility]-Laboratory, [place] Work Phone: Start: 12-16-2021 End: 12-16-2021 ambulatory [facility] Work Phone: Start: 12-16-2021 End: 12-16-2021 Patient encounter procedure [facility]-Outpatient Breast Imaging Start: 08-23-2021 End: 08-23-2021 Patient encounter procedure [facility]-Laboratory, Specimen Start: 08-22-2021 End: 08-22-2021 Patient encounter procedure [facility]-Laboratory, [place] Family Procedures Date Procedure Procedure Detail Performing Clinician Start: 11-26-2024 Vitamin D, 25-hydrox y measurement Svetlana Donald MD Work Phone: Comment on above: Vitamin D StatusDefi ciency: <20 ng/mL (50nmol/L)Insufficiency: 20-30 ng/mL (50-75 nmol/L)Sufficiency: 30-100 ng/mL (75-250 nmol/L)Toxicity: >100 ng/mL (>250 nmol/L) Start: 08-28-2024 Screening mammography Sharron Donald MD Work Phone: Start: 08-28-2024 Vitamin D, 25-hydrox y measurement Svetlana Donald MD Work Phone: Comment on above: Vitamin D StatusDefi ciency: <20 ng/mL (50nmol/L)Insufficiency: 20-30 ng/mL (50-75 nmol/L)Sufficiency: 30-100 ng/mL (75-250 nmol/L)Toxicity: >100 ng/mL (>250 nmol/L) Start: 08-15-2023 Screening mammography Start: 12-16-2021 Screening mammography H/O: section S/P sectio n History of cholecystectomy S/P laparoscopic cholecystectomy Payers Date Payer Category Payer Self-pay [id number] 2021 Private Health Insurance [id number] 2012 Unknown [id number] Unknown [id number] [id number] Unknown [id number] Unknown [id number] [id number] [id number] Unknown [id number] [id number] [id number] Unknown [id number] [id number] [id number] Unknown [id number] [id number] [id number] Social History Date Type Detail Facility Start: 12-22-2020 End: 12-22-2020 Tobacco smoking status CAIS Unknown if ever smoked [facility] Start: 01-01-[address] [facility] Start: 01-01-2019 Spouse/ Signif icant Other [facility] Start: 07-14-[address] [facility] Start: 1965 Sex Assigned At Female [facility] Start: 12-22-2020 Tobacco smoking status NHIS Never smoked tobacco (finding) [facility] Sex Female [facility] Medical Equipment Procedure Code Equipment Code Equipment Origin al Text Equipment Identifier Dates Repair, hernia, ventral or umbilical, laparoscopic MESH,VENTLEX ST ,LG 8CM FDA Start: 01-01-2019 Repair, hernia, ventral or umbilical, laparoscopic MESH,VENTLEX ST ,LG 8CM FDA Start: 01-01-2019 Repair, hernia, ventral or umbilical, laparoscopic MESH,VENTLEX ST ,LG 8CM FDA Start: 01-01-2019 Repair, hernia, ventral or umbilical, laparoscopic MESH,VENTLEX ST ,LG 8CM FDA Start: 01-01-2019 Repair, hernia, ventral or umbilical, laparoscopic MESH,VENTLEX ST ,LG 8CM FDA Start: 01-01-2019 Repair, hernia, ventral or umbilical, laparoscopic MESH,VENTLEX ST ,LG 8CM FDA Start: 01-01-2019 Repair, hernia, ventral or umbilical, laparoscopic MESH,VENTLEX ST ,LG 8CM FDA Start: 01-01-2019 Repair, hernia, ventral or umbilical, laparoscopic MESH,VENTLEX ST ,LG 8CM FDA Start: 01-01-2019 Repair, hernia, ventral or umbilical, laparoscopic MESH,VENTLEX ST ,LG 8CM FDA Start: 01-01-2019 Progress note 01-21-2025 Note Date & Type Note Facility 01-21-2025 Progress note [facility] Clinical Note 08-23-2021 Note Date & Type Note Facility 08-23-2021 Note [facility] Work Phone: Pap Smear Specimen Adequacy August 23, 2021 4:00pm Comment . Satisfactory for evaluation. Endocervical and/or squamous metaplasticcells (endocervical component) are present. Comment on above: Satisfactory for glen luation. Endocervical and/or squamous metaplasticcells (endocervical component) are present. Clinical Note 08-23-2021 Note Date & Type Note Facility 08-23-2021 Note [facility] Work Phone: Pap Smear QC Review August 23, 2021 4:00pm Comment . 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) Comment on above: Namrata Elaine [employer] Emissions Automotive Technician (ASCP) Evaluation note Note Date & Type Note Facility Evaluation note No assessment information availa ble [facility] Work Phone: Evaluation note Note Date & Type Note Facility Evaluation note Diagnosis Onset Date Resolution Lymphedema acute January 21 8:38am Venous insufficiency acute Octo 2024 8:38am Varicose veins of lower extremity noneactive January 21 8:38am [facility] Work Phone: Progress note Note Date & Type Note Facility Progress note Note Date/Time January 21, 2025 10:20am [facility] [address] [place], [place] [address] OFFICE VISIT Date of Service: 01/21/25 MR#: [id number] Acct: [id number] Name: JAE HENAO Rep #: [id number] : 1965 Provider: JESUS Luo Age/Sex: 59/F Location: [facility] Status: Signed Intake Vital Signs 01/21/25 09:16 Weight: 215 lb BP 159/79 H Blood Pressure Location Lt brachial Position Sitting Respiration 16 Pulse 69 Pulse Source Monitor Temp 98.2 F Temp Source Temporal Pulse Oximetry (%) 98 Oxygen Delivery Method room air Intake Visit Reasons: Varicose veins Chief Complaint: establisk care Is patient in pain?: No Allergies Penicillins Allergy (Verified 01/21/25 09:21) Unknown Medications ?Medication ?Instructions ?Recorded ?Confirmed ?Type atorvastatin 10 mg tablet 10 mg PO QHS cholesterol 02/0801/16/25 History losartan 25 mg tablet 25 mg PO QHS blood pressure 08/30/18 01/16/25 History cyanocobalamin (vitamin B-12) 1,000 mcg PO DAILY suppl ement 09/11/18 01/16/25 History 1,000 mcg tablet pyridoxine (vitamin B6) 50 mg 100 mg PO DAILY suppleme nt 09/11/18 01/16/25 History tablet multivitamin with minerals 1 each PO DAILY 07/14/20 History ergocalciferol (vitamin D2) 1,250 1,250 mcg PO QWEEK 0 01/16/25 01/16/25 History mcg (50,000 unit) capsule glimepiride 2 mg tablet 4 mg PO BID diabetes 2 5 01/16/25 History metformin 1,000 mg tablet 1,000 mg PO BID diabetes 01/16/25 History pioglitazone 30 mg tablet 30 mg PO QDAY 01/16/2501/16 History biotin 1 mg capsule 1 mg PO QDAY 01/21/25 History magnesium 250 mg tablet 250 mg PO QDAY 01/21/2505/17 History Is last menstrual period known: No Post menopausal: Yes Patient : No Have you fallen in the past year?: No PFSH Medical History (Updated 01/21/25 @ 14:58 by JESUS Luo) Fibroadenoma of left breast Abnormal ultrasound of breast Abnormal mammogram of left breast Incisional hernia Umbilical hernia Diabetes High cholesterol HTN (hypertension) Surgical History S/P repair of ventral hernia S/P vein stripping S/P laparoscopic cholecystectomy S/P section Family History Grandmother Breast cancer Social History Smoking Status: Never smoker alcohol intake: never substance use type: does not use caffeine: Yes what type of physical activity do you participate in: walking frequency: daily HPI HPI HPI: JAE HENAO, is a 59 F who presents to the office today for consultation regarding varicose veins as referred from her PCP Dr. Donald. She had a venous doppler earlier this month which was negative for DVT, did not include a reflux study. She reports that she has noticed varicose veins and LLE edema to some degree ever since having children. She had a prior venous ablation or stripping by Dr. Jalloh ~2010 of a symptomatic L medial thigh varicosity which she reports helped a lot; but now she has had increasing achiness along a newer L medial thigh/calfvaricosity and increased edema over the last year or two as well. She reports she tried compression stockings back prior to her last ablation and it did not help, but she has not tried them more recently. She does stay active. She does not have any history of prior DVT or PE. She does not have any wounds or chronicskin changes. ROS General General: No weight change, appetite, fatigue, colon cancer, breast cancer or weakness HEENT HEENT: No difficulty swallowing, eye injury, eye surgery, swollen glands or hoarseness Endo Endocrine: Yes diabetes mellitus; No thyroid disease, thyroid cancer, Hair loss, heat intolerance or cold intolerance Skin Skin: No rash or changing moles Musc Musculoskeletal: No back problems, arthritis, rheumatoid arthritis, gout or joint pain Cardio Cardiovascular: Yes high blood pressure; No murmur, pacemaker, heart disease, atrial fibrillation, heart attack, heart stent, palpitations, shortness of breath with exertion or chest pain Psych Psychiatric: No depression, anxiety or hearing voices Resp Respiratory: No shortness of breath, Yes sleep apnea, No cough, No COPD, No asthma, No emphysema and No wheezing Gastro Gastrointestinal: No abdominal pain, No nausea or vomiting, No diarrhea, No constipation, No blood in stool, No acid reflux, No hemorrhoids, No ulcers, No gallbladder problem and No black,tarry stools Alex Hematologic: No blood thinners, No blood disorders, No bleeding, No anemia and No blood clots Neuro Neurologic: No system reviewed and no additional complaints, except as documented, No as per HPI, No abnormal gait, No abnormal hearing, No abnormal movements, No abnormal speech, No behavioral changes, No burning sensations, No confusion, No convulsions, No disequilibrium, No dizziness, No localized weakness, No frequent falls, No headache(s), No lack of coordination, No loss ofvision, No memory loss, No numbness, No other visual disturbances, No radicular pain, No restless legs, No sensory deficit, No syncope, No tingling, No tremor(s), No weakness and No other Exam Const General: cooperative, comfortable and no acute distress Orientation: alert, awake and oriented x3 HENMT Head: normal to inspection, normocephalic and atraumatic Ears: hearing grossly normal bilaterally and external ears normal Nose: external nose normal Eyes General: appearance normal, both eyes and all related structures EOM: EOM intact bilaterally Neck Neck: normal visual inspection and trachea midline Resp Effort & Inspection: normal respiratory effort, able to speak in complete sentences, not labored, no respiratory distress, no retractions, no stridor and no use of accessory muscles Auscultation: clear to auscultation bilaterally Cardio Rate: regular rate Rhythm: regular rhythm Heart Sounds: no murmurs Bruits: no carotid bruits Pulses: brachial pulses present and radial pulses present Skin General: no rashes or lesions noted Trauma: no lacerations or abrasions Wounds: no wounds Neuro General: gait normal, moves all extremities, no focal motor deficits and CN's II-XI intact bilaterally Speech: speech normal Sensory Exam: no sensory deficits noted Extremities Pulses: Normal: Right Dorsalis Pedis Pulse, Left Dorsalis Pedis Pulse, Right Posterior Tibial Pulse, Left Posterior Tibial Pulse, Right Radial Pulse and LeftRadial Pulse Lower Extremity Edema: Trace: Bilateral Veins: Bilateral: Reticular Veins and Left: Varicose Veins (L medial thigh/calf) Additional Details: Bilateral lower extremity edema with circumference measurements as follows: R ankle 24 cm R calf 46.5 cm L ankle 24.5 cm L calf 46 cm lower leg length: 39 cm Psych Appearance: grossly normal Mental Status: mental status grossly normal Affect: normal affect Speech and Movement: speech and movement normal Attitude: cooperative Coding Level of Care Code Off vis,new,level 3 Diagnoses Varicose veins of lower extremity I83.90 Lymphedema I89.0 Venous insufficiency I87.2 Assessment and Plan Assessment and Plan (1) Varicose veins of lower extremity: (2) Lymphedema: Status: Acute (3) Venous insufficiency: Status: Acute Plan Will obtain a venous reflux study to further evaluate underlying venous insufficiency. I advise initiation of conservative management measures for both lymphedema and CVI including daily use of measured compression stockings (will attempt to orderthrough the office, alternatively can go to [facility]), leg elevation at all times of rest, and routine daily exercise. Plan for return to the office after imaging and trial of conservative managementin about 12 weeks, sooner as needed. Clinical Quality Measures Falls Risk Screening/Assistive Devices Have you fallen in the past year?: No 01/21/25 1501 <Electronically signed by Sandy LEE> Date _ Sandy LEE 01/21/25 1615<Electronically signed by Checo Dewey MD> Cosigner Signature: Date (if applicable) Checo Dewey MD CC: Dr. Svetlana Donald MD ~ [facility] Work Phone: Reason for referral (narrative) Note Date & Type Note Facility Reason for referral (narrative) No reason for referral information available [facility] Work Phone: Summary Purpose Family History No Family History Records Found Relationship Condition Age at Onset Recorded Date/T william grandmother Malignant neoplasm of breast Unknown Advance Directives No Advanced Directives Records Found Advance Directive Response Recorded Date/ Time Living Will Yes July 14, 2020 9:40am Power of Cell Assembly Pinner Yes July 14 9:40am Advance Directive Response Recorded Date/ Time Living Will Yes July 14, 2020 8:40am Power of Cell Assembly Pinner Yes July 14 8:40am Chief Complaint and Reason for Visit Chief Complaint SCREENING Chief Complaint EORDER Chief Complaint EORDER SCREENING Chief Complaint Admit Date SCREENING August 28, 2024 12:06p m Chief Complaint Admit Date LEFT LEG SWELLING December 23, 2024 2:51pm Chief Complaint Admit Date LEFT LEG SWELLING December 23, 2024 2:51pm Varicose veins January 21, 2025 8: 38am Reason for Visit Admit Date Lymphedema January 21, 2025 8: 38am Venous insufficiency January 21, 2025 8 :38am Varicose veins of lower extremity Octobe r 2024 8:38am Additional Source Comments INFORMATION SOURCE (unrecogn ized section and content) DATE CREATED AUTHOR 05/16/2021 [facility] DATE CREATED AUTHOR AUTHOR'S ORGANIZ ATION 01/26/2025 [facility] Goals (unrecognized section and content) Goals may be documented in a n alternate sectionGoals may be documented in an alternate sectionGoals may be documented in an alternate sectionGoals may be documented in an alternate sectionGoals may be documented in an alternate sectionGoals may be documented in an alternate sectionGoals may be documented in an alternate sectionGoals may be documented in an alternate sectionGoals may be documented in an alternate section Care Teams (unrecognized sec tion and content) Team Status: Active Member Role Status Dates Mesha MTZ MD Family Provider Active Dr. Mesha Mattson MD Primary Care Provider Active Team Status: Inactive Member Role Status Dates Dr. Mesha Mattson MD Primary Care Prov ider, Attending Provider, Referring Provider Active Team Status: Active Member Role Status Dates Svetlana Donald MD Primary Care Provider Active Team Status: Inactive Member Role Status Dates Svetlana Donald MD Primary Care Provider Active St art: August 28, 2024 End: August 28, 2024 Svetlana Donald MD Attending Provider Active Start : August 28, 2024 End: August 28, 2024 Svetlana Donald MD Referring Provider Active Start : August 28, 2024 End: August 28, 2024 Team Status: Active Member Role Status Duke Donald MD Primary Care Provider Active St art: August 28, 2024 Svetlana Donald MD Attending Provider Active Start : August 28, 2024 Svetlana Donald MD Referring Provider Active Start : August 28, 2024 Team Status: Active Member Role/Relationship Status Duke Donald MD Primary Care Provider Active Team Status: Active Member Role/Relationship Status Duke Donald MD Primary Care Provider Active St art: November 26, 2024 Svetlana Donlad MD Attending Provider Active Start : November 26, 2024 Svetlana Donald MD Referring Provider Active Start : November 26, 2024 Team Status: Inactive Member Role/Relationship Status Duke Donald MD Primary Care Provider Active St art: December 23, 2024 End: December 23, 2024 Svetlana Donald MD Attending Provider Active Start : December 23, 2024 End: December 23, 2024 Svetlana Donald MD Referring Provider Active Start : December 23, 2024 End: December 23, 2024 Team Status: Active Member Role/Relationship Status Duke Donald MD Primary Care Provider Active St art: December 23, 2024 Dr. Checo Dewey MD Attending Provider Active S tart: December 23, 2024 Team Status: Active Member Role/Relationship Status Duke Donald MD Primary care physician Active Team Status: Active Member Role/Relationship Status Duke Donald MD Primary care physician Active S tart: November 26, 2024 Svetlana Donald MD Attending physician Active Star t: November 26, 2024 Svetlana Donald MD Referring Provider Active Start : November 26, 2024 Team Status: Inactive Member Role/Relationship Status Duke Donald MD Primary care physician Active S tart: December 23, 2024 End: December 23, 2024 Svetlana Donald MD Attending physician Active Star t: December 23, 2024 End: December 23, 2024 Svetlana Donald MD Referring Provider Active Start : December 23, 2024 End: December 23, 2024 Team Status: Active Member Role/Relationship Status Duke Donald MD Primary care physician Active S tart: December 23, 2024 Svetlana Donald MD Referring Provider Active Start : December 23, 2024 Dr. Checo Dewey MD Attending physician Active Start: December 23, 2024 Team Status: Inactive Member Role/Relationship Status Dates Svetlana Donald MD Primary care physician Active S tart: January 21, 2025 End: January 21, 2025 Svetlana Donald MD Referring Provider Active Start : January 21, 2025 End: January 21, 2025 JESUS Luo Attending physician Active Sta rt: January 21, 2025 End: January 21, 2025 FOR RECORDS PERTAINING TO PATIENTS WHO ARE [...] BE BASED ON THE PRIMARY CLINICAL RECORDS. [employer] provides no warranty or guarantee of the accuracy or completeness of information in this document.
--- NOTE | 2025-02-07 23:00 | RAD_ITS ---
PROCEDURE: HUMERUS MIN 2 VIEWS 02/07/2025 REASON FOR EXAM: PAIN TECHNIQUE: Procedure Code: RADHUM Modality: DX Procedure: HUMERUS MIN 2 VIEWS Laterality: FINDINGS: Mildly displaced fracture of the humeral head. The soft tissues are unremarkable. RAD/Humerus min 2 Views IMPRESSION: Humeral head fracture. Reading Location: [id number]
[2025-02-07 23:12] VITALS: BP 163/60; PULSE 75; PULSE 77; RESP 16; RESP 18; O2SAT 100; O2SAT 94
--- NOTE | 2025-02-07 23:40 | EDS_ITS ---
HPI History of Present Illness Chief Complaint: Upper Extremity Injury [facility] Medical History (Updated 02/07/25 @ 23:[address] Gorge Carey, DO) Fibroadenoma of left breast Abnormal ultrasound of breast Abnormal mammogram of left breast Incisional hernia Umbilical hernia Diabetes High cholesterol HTN (hypertension) Home Medications ?Medication ?Instructions ?Recorded ?Last Taken ?Type atorvastatin 10 mg tablet 10 mg PO QHS cholesterol 02/08 Unknown History losartan 25 mg tablet 25 mg PO QHS blood pressure 08/30/18 Unknown History cyanocobalamin (vitamin B-12) 1,000 mcg PO DAILY suppl ement 09/11/18 Unknown History 1,000 mcg tablet pyridoxine (vitamin B6) 50 mg 100 mg PO DAILY suppleme nt 09/11/18 Unknown History tablet multivitamin with minerals 1 each PO DAILY 07/14/20 Un known History ergocalciferol (vitamin D2) 1,250 1,250 mcg PO QWEEK 0 01/16/25 Unknown History mcg (50,000 unit) capsule glimepiride 2 mg tablet 4 mg PO BID diabetes 5 Unknown History metformin 1,000 mg tablet 1,000 mg PO BID diabetes Unknown History pioglitazone 30 mg tablet 30 mg PO QDAY 01/16/25 Unkno wn History biotin 1 mg capsule 1 mg PO QDAY 01/21/25 Unknow n History magnesium 250 mg tablet 250 mg PO QDAY 01/21/25 Unkn own History methocarbamol 500 mg tablet 500 mg PO 4X/DAY PRN Muscl e 02/07/25 Unknown Rx pain/spasm #40 tabs ondansetron 4 mg disintegrating 4 mg PO TID PRN nausea and 02/07/25 Unknown Rx tablet vomiting #21 tabs oxycodone-acetaminophen 5 mg-325 1 tab PO Q6H PRN pain 5 days #20 02/07/25 Unknown Rx mg tablet (Percocet) tabs Allergy/AdvReac Type Severity Reaction Status Date / Time Penicillins Allergy Unknown Verified 02/07/25 21:13 Family History Grandmother Breast cancer Surgical History S/P repair of ventral hernia S/P vein stripping S/P laparoscopic cholecystectomy S/P section Social History Smoking Status: Never smoker alcohol intake: never substance use type: does not use caffeine: Yes what type of physical activity do you participate in: walking frequency: daily EXAM Physical Exam Const Vital Signs: 02/07/25 21:13 02/07/25 23:12 02/07/25 23:12 Temperature 96.6 F L Temperature Source Temporal Pulse Rate 87 77 75 Respiratory Rate 18 16 18 Blood Pressure 185/75 H 163/60 H 163/60 H Blood Pressure Mean 111 94 94 Pulse Ox 100 94 100 Oxygen Delivery Method Room Air Room Air Room Air MDM MDM Radiography Diagnostic Testing: Clinical Impression(s) from Imaging Studies Shoulder X-Ray 02/07/25 22:22 IMPRESSION: Humeral head fracture. Reading Location: [address] Humerus X-Ray 02/07/25 23:00 IMPRESSION: Humeral head fracture. Reading Location: [address] Discharge Plan Triage Chief Complaint: Upper Extremity Injury ED Provider: Gorge Carey Dx/Rx/DC Orders Clinical Impression: Closed fracture of left proximal humerus Instructions: Understanding a Humerus Fracture, ED Fracture, Upper Extremity Prescriptions: New oxycodone-acetaminophen [Percocet] 5-325 mg tablet 1 tab PO Q6H PRN (Reason: pain) 5 Days Qty: 20 0RF ondansetron 4 mg tablet,disintegrating 4 mg PO TID PRN (Reason: nausea and vomiting) Qty: 21 0RF methocarbamol 500 mg tablet 500 mg PO 4X/DAY PRN (Reason: Muscle pain/spasm) Qty: 40 0RF No Action atorvastatin 10 mg tablet 10 mg PO QHS losartan 25 mg tablet 25 mg PO QHS cyanocobalamin (vitamin B-12) 1,000 MCG tablet 1,000 mcg PO DAILY pyridoxine (vitamin B6) 50 MG tablet 100 mg PO DAILY multivitamin with minerals 1 EACH tablet 1 each PO DAILY Primary Care Provider: Svetlana Donald Referrals: Svetlana Donald MD [Primary Care Provider, Family Practice] Polo Encinas DO [Med Staff - Active Staff, Orthopedics] Referral Note: Left proximal humerus fracture Activity Restrictions/Additional Instructions: Please wear your sling for stabilization of your fracture. Sleep in a more upright position in a recliner to allow gravity to realign the fracture fragment. Take the prescribed medication as directed for pain control. Follow- up with orthopedics for repeat evaluation and to ensure there is no need for surgical intervention. Return to the ER should you have any further concerns Print Language: Ukrainian Disposition Disposition: Home, Self Care
--- NOTE | 2025-02-07 23:40 | EX.ED.UPPERE ---
HPI History of Present Illness Chief Complaint: Upper Extremity Injury Informant: patient and spouse/S.O. Narrative Narrative: Patient is a 59-year-old female with past medical history of hypertension hyperlipidemia and [id number] diabetes. She states around 6 PM this evening she was walking and she went to step out onto the road. She states she did not get her foot up high enough and it caught the edge of the asphalt causing her to fall forward. She states that she placed her arms out to brace herself. She states she did not strike her head or have loss of consciousness. She denies any history of bleeding disorder or blood thinner use. She states when she landed she had immediate pain along the left shoulder. Since that time she has had difficulty moving the shoulder secondary to pain. She states she was able to get up however and ambulate. Both concern for underlying fracture from the fall she presents for evaluation. [facility] Medical History (Updated 02/08/25 @ 01:[address] Gorge Carey, DO) Fibroadenoma of left breast Abnormal ultrasound of breast Abnormal mammogram of left breast Incisional hernia Umbilical hernia Diabetes High cholesterol HTN (hypertension) Home Medications ?Medication ?Instructions ?Recorded ?Last Taken ?Type atorvastatin 10 mg tablet 10 mg PO QHS cholesterol 08/30/18 Unknown History losartan 25 mg tablet 25 mg PO QHS blood pressure 08/30/18 Unknown History cyanocobalamin (vitamin B-12) 1,000 mcg PO DAILY supplement 09/11/18 Unknown History 1,000 mcg tablet pyridoxine (vitamin B6) 50 mg 100 mg PO DAILY supplement 09/11/18 Unknown History tablet multivitamin with minerals 1 each PO DAILY 07/14/20 Unknown History ergocalciferol (vitamin D2) 1,250 1,250 mcg PO QWEEK 01/16/25 Unknown History mcg (50,000 unit) capsule glimepiride 2 mg tablet 4 mg PO BID diabetes 01/16/25 Unknown History metformin 1,000 mg tablet 1,000 mg PO BID diabetes 01/16/25 Unknown History pioglitazone 30 mg tablet 30 mg PO QDAY 01/16/25 Unknown History biotin 1 mg capsule 1 mg PO QDAY 01/21/25 Unknown History magnesium 250 mg tablet 250 mg PO QDAY 01/21/25 Unknown History methocarbamol 500 mg tablet 500 mg PO 4X/DAY PRN Muscle 02/07/25 Unknown Rx pain/spasm #40 tabs ondansetron 4 mg disintegrating 4 mg PO TID PRN nausea and 02/07/25 Unknown Rx tablet vomiting #21 tabs oxycodone-acetaminophen 5 mg-325 1 tab PO Q6H PRN pain 5 days #20 02/07/25 Unknown Rx mg tablet (Percocet) tabs Allergy/AdvReac Type Severity Reaction Status Date / Time Penicillins Allergy Unknown Verified 02/07/25 21:13 Family History Grandmother Breast cancer Surgical History S/P repair of ventral hernia S/P vein stripping S/P laparoscopic cholecystectomy S/P section Social History Smoking Status: Never smoker alcohol intake: never substance use type: does not use caffeine: Yes what type of physical activity do you participate in: walking frequency: daily ROS ROS ED Constitutional Constitutional ED: Denies chills or fever(s) Eyes Eyes: Denies blurry vision or change in vision ENT ENT ED: Denies sore throat Cardiovascular Cardiovascular: Reports other Details: Negative syncope ; Denies chest pain, palpitations or racing heartbeat Respiratory/Chest Respiratory/Chest: Denies cough or dyspnea Gastrointestinal Gastrointestinal: Denies abdominal pain, diarrhea, nausea or vomiting Musculoskeletal Musculoskeletal: Reports other Details: Positive left shoulder pain ; Denies back pain or neck pain Integumentary Denies Abrasions or rash Neurologic Neurologic: Denies headache(s) Hematologic/Lymphatic Hematologic/Lymphatic: Denies easy bleeding or easy bruising EXAM Physical Exam Const Vital Signs: 02/07/25 21:13 02/07/25 23:12 02/07/25 23:12 Temperature 96.6 F L Temperature Source Temporal Pulse Rate 87 77 75 Respiratory Rate 18 16 18 Blood Pressure 185/75 H 163/60 H 163/60 H Blood Pressure Mean 111 94 94 Pulse Ox 100 94 100 Oxygen Delivery Method Room Air Room Air Room Air Positive well nourished and well developed General Appearance ED: well developed HEENT HEENT Narrative: Normocephalic atraumatic No signs of depressed or basilar skull fracture Eyes PERRL and EOMs intact bilaterally Neck full ROM and supple Neck Narrative: No bony deformity or step-off of the cervical spine No midline tenderness to palpation Chest Wall palpation of chest normal Resp normal respiratory effort and clear to auscultation bilaterally Cardio regular rate and regular rhythm Extremity Extremity Narrative: Left upper extremity is neurovascularly intact; AIN/PIN are intact and normal. There is soft tissue swelling along the proximal humerus. No obvious bony deformity or joint effusion. Negative sulcus sign. Compartments are soft and compressible going against compartment syndrome. No abrasion or ecchymosis noted. Active and passive range of motion is severely limited secondary to pain Pelvis is stable there is no shortening or external rotation of either lower extremity Patient is able to move both legs and the right arm without pain or difficulty. Neuro oriented x3 and CN's II-XII intact bilaterally Sensorium / Orientation: alert Psych mental status grossly normal Skin no rashes or lesions noted MDM MDM MDM Narrative Medical decision making narrative: Patient arrived to the ER hypertensive but has a past medical history of this. Otherwise vitals are stable. She reported a mechanical fall and therefore I felt no need for cardiac or syncope workup. She did not strike her head she does not have a history of bleeding disorder nor does she take blood thinners so my concern for traumatic subarachnoid or subdural hemorrhage is low and I feel no need for head CT. With pain and swelling along the left proximal humerus/shoulder there is concern for clavicle fracture versus proximal humerus fracture versus AC separation. X-rays were obtained and confirmed a proximal humerus fracture. However there is no dislocation and the fracture is only minimally displaced. With this the fracture is closed and she is neurovascularly intact and she does not have compartment syndrome and therefore there is no need for emergent orthopedic consultation. Patiently placed in a sling for stabilization and prescribed pain medication and is otherwise safe for discharge with outpatient orthopedic follow-up. History & Record Review Discussion w/independent historian: Patient and Significant other Radiography Diagnostic Testing: Clinical Impression(s) from Imaging Studies Shoulder X-Ray 02/07/25 22:22 IMPRESSION: Humeral head fracture. Reading Location: [address] Humerus X-Ray 02/07/25 23:00 IMPRESSION: Humeral head fracture. Reading Location: [address] Left shoulder x-ray as interpreted by the emergency medicine physician reveals osteoarthritic/degenerative changes with an impacted minimally displaced proximal humerus fracture X-ray of the left humerus as interpreted by the emergency medicine physician reveals the impacted proximal humerus fracture. Discharge Plan Triage Chief Complaint: Upper Extremity Injury ED Provider: Gorge Carey Dx/Rx/DC Orders Clinical Impression: Closed fracture of left proximal humerus, HTN (hypertension), Hyperlipidemia, Diabetes mellitus type 2, noninsulin dependent Instructions: Understanding a Humerus Fracture, ED Fracture, Upper Extremity Prescriptions: New oxycodone-acetaminophen [Percocet] 5-325 mg tablet 1 tab PO Q6H PRN (Reason: pain) 5 Days Qty: 20 0RF ondansetron 4 mg tablet,disintegrating 4 mg PO TID PRN (Reason: nausea and vomiting) Qty: 21 0RF methocarbamol 500 mg tablet 500 mg PO 4X/DAY PRN (Reason: Muscle pain/spasm) Qty: 40 0RF No Action atorvastatin 10 mg tablet 10 mg PO QHS losartan 25 mg tablet 25 mg PO QHS cyanocobalamin (vitamin B-12) 1,000 MCG tablet 1,000 mcg PO DAILY pyridoxine (vitamin B6) 50 MG tablet 100 mg PO DAILY multivitamin with minerals 1 EACH tablet 1 each PO DAILY Primary Care Provider: Svetlana Donald Referrals: Svetlana Donald MD [Primary Care Provider, Family Practice] Polo Encinas DO [Med Staff - Active Staff, Orthopedics] Referral Note: Left proximal humerus fracture Activity Restrictions/Additional Instructions: Please wear your sling for stabilization of your fracture. Sleep in a more upright position in a recliner to allow gravity to realign the fracture fragment. Take the prescribed medication as directed for pain control. Follow-up with orthopedics for repeat evaluation and to ensure there is no need for surgical intervention. Return to the ER should you have any further concerns Print Language: Setswana Disposition Disposition: Home, Self Care Discharge Date/Time: 02/07/25 23:47
[2025-02-07 23:44] VITALS: BP 138/61; PULSE 77; RESP 16; TEMP 36.7; O2SAT 100
== END 2025-02-07 23:47 | disposition home or self-care (01) ==
PROVIDERS: Emergency Provider Emergency Medicine; PCP Family Medicine; Visit Provider Emergency Medicine
DX: S42.292A Other displaced fracture of upper end of left humerus, initial encounter for closed fracture (principal); E11.9 Type 2 diabetes mellitus without complications; E78.00 Pure hypercholesterolemia, unspecified; I10 Essential (primary) hypertension; W01.0XXA Fall on same level from slipping, tripping and stumbling without subsequent striking against object, initial encounter; M25.512 Pain in left shoulder
CPT/HCPCS: 73030; 73060; 96372; 99284

== ENCOUNTER → 2025-03-11 | Outpatient (CLI) | payer OTHER, SELFPAY | END | disposition home or self-care (01) | LOC: MFPLAB 11:32 | PROVIDERS: PCP Family Medicine; Visit Provider Family Medicine | DX: E11.9 Type 2 diabetes mellitus without complications (principal) | CPT/HCPCS: 36415; 83036 ==